=== PATIENT | female | born 1965 | race Caucasian/White ===

== ENCOUNTER → 2019-04-21 10:00 | Outpatient (CLI) | payer MEDICARE, MEDICAID, SELFPAY ==
--- NOTE | 2019-04-21 10:08 | US_ITS ---
US Arterial Lower Ext Rest History: Claudication, current smoker ORDERING PHYSICIAN: Vita Hoffman MD PATIENT AGE: 54 years TECHNIQUE: Segmental pressures obtained of both right and left leg. These are compared to brachial blood pressure to yield index at each level sampled including summary JORDON. The data sheets from the procedure are available in PACS FINDINGS Rest study only performed today No prior studies available for comparison. Blood pressures reported are in millimeters mercury. RIGHT LEG JORDON = 1.0. RIGHT LEG TBI=1.1 Brachial BP: 117 Thigh BP: 126 Calf BP: 121 Ankle PT: 128 Ankle DP : 107 Digit =138 LEFT LEG JORDON = 1.0 LEFT LEG TBI= 0.9 Brachial BPD: 124 Thigh BP: 130 Calf BP: 121 Ankle PT:127 Ankle DP: 120 Digit = 106 Pulses and waveforms: Normal IMPRESSION: The ABIs as reported above are within normal limits. Waveforms and pulses are also unremarkable.
== END ==
PROVIDERS: PCP Family Medicine; Visit Provider Family Medicine
DX: I73.9 Peripheral vascular disease, unspecified (principal)
CPT/HCPCS: 93923

== ENCOUNTER → 2019-04-29 13:04 | Outpatient (POV) | payer MEDICARE, MEDICAID, SELFPAY | PROVIDERS: Visit Provider Dermatology | DX: Z00.00 Encounter for general adult medical examination without abnormal findings (principal) ==

== ENCOUNTER → 2019-04-30 13:15 | Outpatient (POV) | payer MEDICARE, MEDICAID, SELFPAY | DX: Z00.00 Encounter for general adult medical examination without abnormal findings (principal) ==

== ENCOUNTER → 2019-05-16 12:00 | Outpatient (CLI) | payer MEDICARE, MEDICAID, SELFPAY ==
--- NOTE | 2019-05-16 12:02 | NM_ITS ---
APPROVED REPORT Exam: Nuclear Stress Test Indication: CAD, SOA, H/X NC, OBESITY, HTN, D.M., TOB USE, C.P., FATIQUE Patient Location: Outpatient Stress Tech: Lisset Velazco [place] Tech:Юлия Celis, ARRT RT (R)(N)(M) Ht: 4 ft 11 in Wt: 161 lbs BSA: 1.68 m2 HR: 91 bpm BP: 92/62 mmHg BMI: 32.5 History: CAD, SOA, H/X NC, OBESITY, HTN, D.M., TOB USE, C.P., FATIQUE Procedure: Patient received a 0.4 mg of intravenous Lexiscan, resting heart rate 91 bpm, resting blood pressure 92/62 mmHg, with Lexiscan maximum heart rate achived was 117 bpm which is Less than 85 % of the maximum predicted heart rate and blood pressure was 113/66 mmHg. Electrocardiogram Resting electrocardiogram showed sinus rhythm, with Lexiscan there is less than 1.[address] segment depression noted from the baseline EKG. The EKG portion of the Lexiscan Myoview is nondiagnostic. Cardiac Stress and Resting SPECT Images: Cardiac Stress and Resting SPECT images were obtained using technetium 99m Myoview 31.4 mCi stress and 9.89 mCi at rest. Gated SPECT with analysis of segmental wall motion and calculation of the ejection fraction also done. Cardiac stress and resting SPECT images show decreased tracer activity in the anterior wall with normal contractility and the gated SPECT is likely secondary to soft tissue attenuation, no reversible ischemia seen. Computer derived ejection fraction is over 65% with no regional wall motion abnormality, right ventricle is normal size and contractility. Conclusion: 1. The EKG portion of the Lexiscan Myoview is nondiagnostic. 2. No scintigraphic evidence of reversible ischemia, mild increases in activity in the anterior wall is likely secondary to soft tissue attenuation. Computer derived ejection fraction is over 65% with no regional wall motion abnormality, right ventricle is normal size and contractility. 3. Likely normal Lexiscan Myoview study. Electronically signed by : Aneudy Perez, 05/19/2019 19:33:03
--- NOTE | 2019-05-16 12:14 | CA_ITS ---
APPROVED REPORT EXAM: Comprehensive 2D, Doppler, and color-flow Echocardiogram Senior Software Quality Engineer: Renée Vazquez RDCS Ht: 4 ft 11 in Wt: 162lbs BSA: 1.69 BP: 150/82 mmHg Indications: Shortness of Breath, Diabetes, CAD, Hyperlipidemia, Hypertension/HDD 2D Dimensions LVOT 1.60 cm (M/F) 1.5-2.5 M-Mode Dimensions RVDd 3.50 cm (0.9-2.6) LA Diam 3.30 cm (1.9-4.0) LVDd 5.30 cm (3.5-5.7) Ao Diam 2.90 cm (2.0-3.7) LVDs 3.30 cm (3.5-5.7) AV Cusp 2.00 cm (1.5-2.6) IVSd 0.90 cm (0.6-1.1) PWd 0.90 cm (0.6-1.1) EF (Teich) 67.30% FS 37.70% EDV (Teich) 135.00 mL ESV (Teich) 44.10 mL LV Diastology E/A Ratio 0.8 MED E' 5.65 (< 7 cm/sec) E'/MED E' Ratio 11.40 (>14) LAT E' 7.80 (<10 cm/sec) E/LAT E' Ratio 8.20 (>14) Aortic Valve LVOT Max 142.00 (70-110 cm/s) LVOT VTI 27.90 cm AoV Peak Reji. 150.00 (50-130 cm/s) AO Peak GR. 9.00 mmHg AO Mean GR. 5.00 (<5 mmHg) AO VTI 30.00 (18-25 cm) LIZA (VTI) 1.87 (2.5-4.5 cm2) Mitral Valve MV E Max Reji. 64.20 (40-130 cm/s) MV A Velocity 76.50 (40-130 cm/s) E/A Ratio 0.80 Tricuspid Valve TR P. Velocity 322.00 cm/s RAP Estimate 10.00 mmHg RVSP 51.00 mmHg Left Ventricle Left atrium is mildly enlarged, left ventricle is normal size, mild concentric left ventricular hypertrophy, visually estimated ejection fraction 50%, with moderate apical wall hypokinesis. Grade 1 diastolic dysfunction seen without tissue Doppler evidence of raise left atrial pressure. Right Ventricle Right atrium and right ventricle moderately enlarged with normal contractility. Aortic Valve Aortic valve is thickened and calcified, there is no aortic stenosis aortic insufficiency. Mitral Valve Mitral valve has mitral valve calcification, there is no mitral stenosis. There is mild mitral regurgitation. Tricuspid Valve Tricuspid valve is grossly normal, there is mild tricuspid regurgitation. Tricuspid regurgitation jet velocity is inadequate for cannulation of the right ventricular systolic pressure. Pulmonic Valve Pulmonic valve is poorly visualized. Great Vessels Aortic root is normal size. Pericardium No significant pericardial effusion noted. Conclusion 1. Biatrial enlargement, normal left ventricular size, mild concentric left ventricular hypertrophy, visually estimated ejection fraction 55% with no regional wall motion abnormality. Grade 1 diastolic dysfunction seen without tissue Doppler evidence of raise left atrial pressure. 2. Moderately enlarged right ventricle with normal contractility. 3. Mild mitral and tricuspid regurgitation 4. No significant pericardial effusion noted. Electronically signed by : Aneudy Perez, 05/16/2019 16:41:00
== END ==
PROVIDERS: PCP Family Medicine; Visit Provider Internal Medicine Cardiovascular Disease
DX: I11.9 Hypertensive heart disease without heart failure (principal); I25.10 Atherosclerotic heart disease of native coronary artery without angina pectoris; R06.02 Shortness of breath; R07.9 Chest pain, unspecified; Z95.5 Presence of coronary angioplasty implant and graft; G47.33 Obstructive sleep apnea (adult) (pediatric); R40.0 Somnolence
CPT/HCPCS: 78452; 93306; A9502; G0399

== ENCOUNTER → 2019-05-19 12:49 | Outpatient (CLI) | payer MEDICARE, SELFPAY ==
--- NOTE | 2019-05-19 | CA_ITS ---
APPROVED REPORT Exam: Pharmacologic Technologist: Lisset Velazco Ht: 4 ft 11 in Wt: 161 lbs BSA: 1.68 m2 HR: 91 bpm BP: 92/62 mmHg Indications: Stress Only Medical History Medications: Aspirin,,,,, Losartan,,,,, Pantoprazole,,,,, Atorvastatin,,,,, Lyrica,,,,, Carvedilol,,,,, INSULIN,,,,, BRILINTA,,,,, Novalog,,,,, Imdur,,,,, CetIRIZINE,,,,, Budesonide,,,,, Stress Test Details Test: LEXISCAN HR Resting HR: 93 bpm Max Heart Rate (APMHR): 165 bpm Max HR Achieved: 127 bpm Target HR (85% APMHR): 140 bpm % of APMHR: 76 Recovery HR: 107 bpm BP Resting BP: 92/62 mmHg Max BP: 113/66 mmHg Recovery BP: 112.0/57.0 mmHg ECG Clinical Exercise duration: 04:00 min Highest Stage Achieved: Stress ECG Conclusion LEXISCAN PORTION COMPLETED. COMPLAINED OF NAUSEA AND SHORTNESS OF BREATH DURING PEAK INFUSION SYMPTOMS: NO CHEST PAIN. POSITIVE SHORTNESS OF BREATH, NAUSEA, AT PEAK INFUSION. RESOLVED IN RECOVERY. ARRHYTHMIAS/ECTOPY: OCCASIONAL PVC ST-T CHANGES: LESS THAN 1mm ST DEPRESSION CONCLUSION: IMAGES TO FOLLOW Test Summary REST . . . . . . . Sitting REST 03:51 . . 93 . 92/ 62 . . Stage 1 01:00 . . 117 . . . . Stage 2 01:00 . . 121 . . . . Stage 3 01:00 . . 116 . 106/ 67 . . Stage 4 01:00 . . 115 . 113/ 66 . Stop exercise at 04:00 RECOVERY 01:00 . . 110 . . . . RECOVERY 02:00 . . 109 . 95/ 53 . . RECOVERY 03:00 . . 106 . 98/ 59 . . RECOVERY 04:00 . . 104 . 98/ 59 . . RECOVERY 04:24 . . 108 . 112/ 57 . . Electronically signed by : Aneudy Perez, 05/19/2019 19:33:35
== END ==
PROVIDERS: PCP Family Medicine; Visit Provider Internal Medicine Cardiovascular Disease
DX: R06.02 Shortness of breath (principal); I25.10 Atherosclerotic heart disease of native coronary artery without angina pectoris; I11.9 Hypertensive heart disease without heart failure; Z95.5 Presence of coronary angioplasty implant and graft
CPT/HCPCS: 93017; J2785

== ENCOUNTER → 2019-07-15 14:06 | Outpatient (CLI) | payer MEDICARE, SELFPAY ==
--- NOTE | 2019-07-15 14:14 | MR_ITS ---
PROCEDURE: MR HEAD/BRAIN WO CON CLINICAL INDICATION: LT LEG WEAKNESS, DIZZINESS Left leg weakness and dizziness with headache and blurred vision COMPARISON: CT HEAD/BRAIN WO CON from 06/25/2019 TECHNIQUE: Routine multiplanar multi echo sequences are performed without gadolinium enhancement. FINDINGS: No midline shift, mass effect, intracranial hemorrhage, or hydrocephalus is evident. The cerebellopontine angles, cerebellum, midbrain, and brainstem have an unremarkable appearance. No evidence of acute infarction. There are a few periventricular and subcortical T2 white matter hyperintensities. These do not demonstrate restricted diffusion. The pituitary, optic chiasm, corpus callosum, and craniocervical junction have an unremarkable appearance. No mastoid effusion or sinus air-fluid level is evident. IMPRESSION: 1. No acute intracranial findings. 2. Nonspecific scattered periventricular and subcortical T2 white matter hyperintensities. Ischemic gliotic change from microvascular disease or migraine headache is a consideration. Demyelinating process is felt to be less likely based on imaging characteristics but not totally excluded. Dictated by: Ward Le MD 07/18/2019 07:14 Electronically signed by Ward Le MD in [place] 07/18/2019 07:14
--- NOTE | 2019-07-15 14:54 | US_ITS ---
PROCEDURE: US THYROID CLINICAL INDICATION: THYROID NODULE The COMPARISON: CT CERVICAL SPINE WO CON from 06/25/2019 CT ANGIO CHEST from 06/25/2019 MR HEAD/BRAIN WO CON from 07/15/2019 FINDINGS: Right lobe: A 4.8 x 1.5 x 2 cm the the. There is a spongiform 12 x 10 mm nodule in the upper pole, partially cystic 5 mm nodule in the midpole. Both of these are low suspicion for malignancy. In the lower pole there is a 10 x 10 mm solid-appearing nodule which is well-circumscribed slightly hypoechoic. Spongiform nodules present in the lower pole at 10 mm. Left lobe: 4.2 x 1.3 x 1.6 cm with a mixed cystic and solid nodule at 1.5 x 1.3 cm in the lower pole. This nodule somewhat irregular but is wider than tall with some macrocalcifications. T rads 4, this is moderately suspicious. FNA with ultrasound guidance suggested Isthmus: Unremarkable Additional findings: IMPRESSION: T rads 4 nodule lower pole on the left moderately suspicious consider FNA with ultrasound guidance. Other bilateral thyroid nodules for which six-month follow-up is suggested. Dictated by: Ward Le MD 07/15/2019 16:32 Electronically signed by Ward Le MD in [facility] 07/15/2019 16:32
== END ==
LOC: RAD 14:07
PROVIDERS: Visit Provider Family Medicine
DX: R29.898 Other symptoms and signs involving the musculoskeletal system (principal); E04.1 Nontoxic single thyroid nodule; R42 Dizziness and giddiness; R53.1 Weakness; Z79.01 Long term (current) use of anticoagulants; W19.XXXD Unspecified fall, subsequent encounter
CPT/HCPCS: 70551; 76536

== ENCOUNTER 2019-09-05 03:11 | Emergency (ER) | payer MEDICARE, SELFPAY ==
--- NOTE | 2019-09-05 | ECG_ITS ---
APPROVED REPORT Exam: Resting ECG HR:95 bpm ECG Measurements Heart Rate 95 AXES FL 118 P QRSd 86 QRS 13 QT 374 T 59 QTc 469 <Conclusion> Normal sinus rhythm Poor R Wave Progression Abnormal ECG Electronically signed by : Kurt Baird, 09/05/2019 08:52:26
[2019-09-05 03:13] VITALS: BP 107/66; PULSE 97; RESP 18; TEMP 36.5; O2SAT 92; BMI 33.3
[2019-09-05 03:38] LABS: Basophils # 0.1 K/mm3 (0-0.2); Basophils % 0.7 % (0.1-2.0); Eosinophils # 0.3 K/mm3 (0.0-0.4); Eosinophils % 3.9 % (0.1-12.0); Hematocrit 36.3 % (37.0-47.0); Hemoglobin 11.6 g/dL (12.2-16.2); Lymphocytes # 3.6 K/mm3 (0.7-4.5); Lymphocytes % 41.1 % (10-50); Mean Corpuscular Hemoglobin 28.9 pg (27.0-31.2); Mean Corpuscular Volume 90.4 fl (81-99); Mean Platelet Volume 7.6 fl (7.4-10.4); Monocytes # 0.5 K/mm3 (0.1-1.0); Monocytes % 5.8 % (1.7-9.3); Neutrophils # 4.2 K/mm3 (1.8-7.8); Neutrophils % 48.5 % (37.0-80.0); Platelet Count 404 K/mm3 (142-424); Red Blood Count 4.02 M/mm3 (4.20-5.40); Red Cell Distribution Width 14.6 % (11.5-17.5); White Blood Count 8.7 K/mm3 (4.8-10.8)
[2019-09-05 03:46] LABS: Alanine Aminotransferase 11 U/L (12-78); Albumin/Globulin Ratio 0.5 (1.1-1.8); Alkaline Phosphatase 89 U/L (46-116); Aspartate Amino Transferase 7 U/L (15-37); Bilirubin,Total 0.2 mg/dL (0.2-1.0); Blood Urea Nitrogen 10 mg/dL (7-18); C-Reactive Protein 0.3 mg/dL (0.0-0.9); Calcium 7.7 mg/dL (8.5-10.1); Carbon Dioxide 31 mmol/L (21.0-32.0); Chloride 104 mmol/L (98-107); Creatinine Clearance Estimated 112 mL/min (50-200); Creatinine,Serum 0.67 mg/dL (0.55-1.02); Estimated Glomerular Filt Rate 91 ml/min (>60); GFR (African American) 111 ML/MIN (>60); Globulin 3.7 gm/dl (1.3-3.2); Glucose 126 mg/dL (74-106); Sodium 143 mmol/L (136-145); Total Protein,Serum 5.7 gm/dL (6.4-8.2)
--- NOTE | 2019-09-05 03:53 | HMH.EDGENADL ---
ED Disposition Clinical Impression: Obesity (BMI 30.0-34.9), Smoker Pulmonary emboli Qualifiers: Pulmonary embolism type: unspecified Chronicity: acute Acute cor pulmonale presence: without acute cor pulmonale Qualified Code(s): I26.99 - Other pulmonary embolism without acute cor pulmonale DVT (deep venous thrombosis) Qualifiers: DVT location: lower extremity Affected thrombotic vein of extremity: femoral Chronicity: acute Laterality: right Qualified Code(s): I82.411 - Acute embolism and thrombosis of right femoral vein Disposition: Home, Self-Care Condition on Discharge: Fair Instructions: DI for Chronic Pain -- Adult, DI for Pulmonary Embolism Additional Instructions: will call in xarelto 15 mg bid x 3 weeks then 20 mg x 6 months Referrals: Provider,Referral, [Primary Care Provider] - - Critical Care Critical Care Time: No Attestation: On 09/05/19, the high probability of a clinically significant, sudden or life threatening deterioration of the following system(s) required my full and direct attention, intervention and personal management. The time I documented below is in addition to time spent performing reported procedures but includes the following listed in this critical care notation. Medical Decision Making - Medical Records Medical records reviewed: Yes: I reviewed the patient's medical records. - Ty Inquiry Pt receiving controlled substance: No Vital Signs: 09/05/19 03:13 09/05/19 04:11 09/05/19 05:00 Temperature 97.7 F 97.9 F Temperature Source Oral Rectal Pulse Rate [Right] 97 H 94 H Respiratory Rate 18 18 Blood Pressure [Right Arm] 107/66 L 112/68 Blood Pressure Mean [Right Arm] 79 82 Blood Pressure Source [Right Arm] Automatic Cuff Automatic Cuff Blood Pressure Position [Right Arm] Sitting Sitting 02 Sat by Pulse Oximetry 92 L 92 L Oxygen Delivery Method Room Air Room Air - Lab Data Lab results reviewed: Yes: I reviewed the patient's lab results. Lab Results 09/05/19 03:15: WBC 8.7, RBC 4.02 L, Hgb 11.6 L, Hct 36.3 L, MCV 90.4, MCH 28.9, MCHC 32.0, RDW 14.6, Plt Count 404, MPV 7.6, Neut % (Auto) 48.5, Lymph % (Auto) 41.1, Mcleod % (Auto) 5.8, Eos % (Auto) 3.9, Baso % (Auto) 0.7, Neut # (Auto) 4.2, Lymph # (Auto) 3.6, Mcleod # (Auto) 0.5, Eos # (Auto) 0.3, Baso # (Auto) 0.1 09/05/19 03:15: Sodium 143, Potassium 3.0 L, Chloride 104, Carbon Dioxide 31, Anion Gap 11.0, BUN 10, Creatinine 0.67, Estimated Creat Clear 112, Estimated GFR 91, Est GFR ( Amer) 111, Glucose 126 H, Calcium 7.7 L, Total Bilirubin 0.2, AST 7 L, ALT 11 L, Alkaline Phosphatase 89, C-Reactive Protein 0.3, Total Protein 5.7 L, Albumin 2.0 L, Globulin 3.7 H, Albumin/Globulin Ratio 0.5 L 09/05/19 03:15: ESR 60 H 09/05/19 03:15: Total Bilirubin 0.1 L, Direct Bilirubin 0.1, Indirect Bilirubin 0.0, AST 10 L D, ALT 12, Alkaline Phosphatase 89, Troponin I < 0.02, Total Protein 5.6 L, Albumin 2.0 L, Lipase 121 09/05/19 03:15: B-Natriuretic Peptide 19 09/05/19 04:17: Urine Color Yellow, Urine Appearance Clear, Urine pH 5.5, Ur Specific [place] 1.015, Urine Protein Negative, Urine Glucose (UA) Negative, Urine Ketones Negative, Urine Blood Trace-i, Urine Nitrate Negative, Urine Bilirubin Negative, Urine Urobilinogen 0.2, Ur Leukocyte Esterase Negative, Urine RBC 3-5, Amorphous Sediment Trace 09/05/19 07:39: Troponin I 0.02 Result diagrams: 09/05/19 03:15 09/05/19 03:15 Orders (Tests/Meds): ED MEDICATIONS Generic Name Dose Route Start Last Admin Trade Name Freq PRN Reason Stop Dose Admin Rivaroxaban 15 mg 09/05/19 08:15 09/05/19 08:50 Xarelto 15mg Tablet PO 10/05/19 08:14 15 mg BIDWM DELORES Administration Discontinued Medications Generic Name Dose Route Start Last Admin Trade Name Freq PRN Reason Stop Dose Admin Enoxaparin Sodium 75 mg 09/05/19 05:29 09/05/19 05:30 Lovenox 80mg/0.8ml Syringe SQ 09/05/19 05:30 75 mg ONCE ONE Administration Sodium Chloride 1,000 mls @ 999 mls/hr
--- NOTE | 2019-09-05 03:57 | CT_ITS ---
PROCEDURE: CT HEAD/BRAIN WO CON CLINICAL INDICATION: weakness/ loss of mobility COMPARISON: CT HEAD/BRAIN WO CON from 06/25/2019 TECHNIQUE: Axial images obtained. All CT scans at the facility use one or more dose reduction, viz: automated exposure control, ma/kV adjustment per patient size (including targeted exams where dose is matched to indication, i.e. head), or iterative reconstruction technique. FINDINGS: No midline shift, mass effect, intracranial hemorrhage, hydrocephalus, or extra-axial fluid collection is evident. There are no new areas of abnormal attenuation. There is mild motion artifact. Ventricles, sulci and cortical areas are normal. The calvarium has an unremarkable appearance. Image number 36 from series number 3, bone window images shows a 15 millimeter round lucency related to the superior posterior right frontal calvarium. This appears stable since 06/25/2019. No sinus air-fluid level. IMPRESSION: No acute intracranial process or significant change. Superior posterior right frontal calvarium lucency appears unchanged although still nonspecific. This could be a cavernous hemangioma. Suggest follow-up CT of the head with bone window images to evaluate this area in 6 months. Dictated by: Tyrell Perez 09/05/2019 16:27 Electronically signed by Tyrell Perez in [place] 09/05/2019 16:27
[2019-09-05 04:01] LABS: Erythrocyte Sedimentation Rate 60 mm/hr (0-30)
--- NOTE | 2019-09-05 04:03 | XR_ITS ---
PROCEDURE: XR CHEST PORTABLE CLINICAL HISTORY: chest pain COMPARISON: XR CHEST 2V from 06/06/2019 XR CHEST AP from 06/25/2019 CT ANGIO CHEST from 09/05/2019 FINDINGS: The cardiomediastinal silhouette and pulmonary vascularity are within normal limits. There is a stable medial right lower lobe calcified nodule. Lung geiger are otherwise clear. No acute bony abnormalities. IMPRESSION: No acute findings. Dictated by: Tyrell Perez 09/05/2019 17:27 Electronically signed by Tyrell Perez in [place] 09/05/2019 17:27
--- NOTE | 2019-09-05 04:03 | CT_ITS ---
PROCEDURE: CT LUMBAR SPINE WO CON CLINICAL HISTORY: loss of mobility COMPARISON: CT LUMBAR SPINE WO CON from 06/25/2019 TECHNIQUE: Axial images obtained with sagittal and coronal reformats. All CT scans at the facility use one or more dose reduction, viz: automated exposure control, ma/kV adjustment per patient size (including targeted exams where dose is matched to indication, i.e. head), or iterative reconstruction technique. FINDINGS: Alignment is normal. There is stable moderate osteopenia. There is stable superior endplate compression deformity at L1 level with stable very mild retropulsion of the posterior superior corner of the L1 vertebral body towards the vertebral canal. This is very mild without stenosis. There is stable degenerative disc disease at L3-4, L5-S1 and L1-2. There is a diffuse disc bulge with moderate thecal sac attenuation and moderate bilateral foraminal stenosis greater on the right which may be more severe. L4-5 shows disc bulge greater towards the left side with moderate foraminal stenosis without definite impingement of the exiting nerve root. The remainder of the disc levels do not show a bulge or herniation. The remainder of the foraminal areas are unremarkable. There are areas of facet hypertrophy which is moderate bilaterally at L5-S1. There is partially visualized catheter in the pelvis which could be partial volume averaging with a Russell catheter. Paraspinal areas are otherwise unremarkable. IMPRESSION: No significant change or acute process. L3-4 moderate acquired central canal stenosis and bilateral foraminal stenosis more severe on the right. L4-5 disc bulge with mild bilateral moderate foraminal stenosis greater on the left. Dictated by: Tyrell Perez 09/05/2019 15:56 Electronically signed by Tyrell Perez in [place] 09/05/2019 15:56
--- NOTE | 2019-09-05 04:03 | CT_ITS ---
PROCEDURE: CT ANGIO CHEST CLINCIAL INDICATION: loss of mobility COMPARISON: CT ANGIO CHEST from 06/25/2019 CT ABDOMEN PELVIS W CON from 06/25/2019 TECHNIQUE: IV Contrast: 70ML OPTIRAY 350 Axial images obtained with sagittal and coronal reformats. All CT scans at the facility use one or more dose reduction, viz: automated exposure control, ma/kV adjustment per patient size (including targeted exams where dose is matched to indication, i.e. head), or iterative reconstruction technique. FINDINGS: PULMONARY ARTERIES: There is a moderate degree of intraluminal filling defects involving the right pulmonary arteries beginning at the distal right main pulmonary artery and extending into the posterior branch of the right lower lobe pulmonary artery. Also noted is a small filling defect in 1 of the left lower lobe segmental pulmonary artery branches. AORTA: No acute finding. No thoracic aortic aneurysm or dissection evident LUNGS: There are some hazy confluent densities in both lower lobes greater in the left lower lobe and thin strands of increased density in the lingula. PLEURAL SPACES: No significant effusion. No evidence of pneumothorax. HEART: Heart size is normal without pericardial effusion. There are coronary artery calcifications. MEDIASTINAL AND HILAR STRUCTURES: No mediastinal or hilar mass evident. No dominant adenopathy BONY STRUCTURES: No acute bony abnormalities apparent. LYMPH NODES: No enlarged lymph nodes evident. UPPER ABDOMEN: Again seen are numerous hypodense splenic lesions the larger in the upper pole is 1.4 centimeters. IMPRESSION: Bilateral pulmonary emboli which is somewhat more extensive on the right side as discussed above. Multifocal lung densities greater on the left likely confluent atelectasis. Stable nonspecific splenic lesions. Suggest continued follow-up and correlate with history. Dictated by: Tyrell Perez 09/05/2019 12:51 Electronically signed by Tyrell Perez in [place] 09/05/2019 12:51
[2019-09-05 04:11] VITALS: TEMP 36.6
[2019-09-05 04:19] LABS: Alanine Aminotransferase 12 U/L (12-78); Alkaline Phosphatase 89 U/L (46-116); Aspartate Amino Transferase 10 U/L (15-37); Bilirubin,Direct 0.1 mg/dL (0.0-0.2); Bilirubin,Total 0.1 mg/dL (0.2-1.0); Lipase 121 u/L (73-393); Total Protein,Serum 5.6 gm/dL (6.4-8.2); Troponin I < 0.02 ng/ml (0.00-0.06)
[2019-09-05 04:31] LABS: Microscopic, Urine URINE MICROSCOPIC (MICROSCOPIC)
[2019-09-05 04:38] LABS: Appearance,Urine CLEAR (Clear); Bilirubin,Urine Negative (Negative); Blood, Urine TRACE-I (Negative); Color,Urine YELLOW (Yellow); Glucose,Urine (UA) Negative (Negative); Ketones,Urine Negative (Negative); Leukocyte Esterase,Urine Negative (Negative); Nitrate,Urine Negative (Negative); PH,Urine 5.5 (5.0-8.5); Protein,Urine Negative (Negative); Specific Gravity, Urine 1.015 (1.005-1.030); Urobilinogen,Urine 0.2 EU/dl (0.2)
[2019-09-05 04:41] LABS: Amorphous Sediment,Urine Trace /lpf
[2019-09-05 05:00] VITALS: BP 112/68; PULSE 94; RESP 18; O2SAT 92
--- NOTE | 2019-09-05 06:57 | CA_ITS ---
APPROVED REPORT Bilateral Lower Extremity Venous Study for DVT. Chief Technical Officer: CHERISE CrouchT Indications Lower Extremity Pain: Bilateral Pulmonary Embolism bilat. edema Vein Imaging CFV (R): compressive, spontaneous, phasic, augmentation FEM (R): Partially Compressible, Thrombus POP (R): compressive, spontaneous, phasic, augmentation PTV (R): Compressible GSV (R): Compressible Peroneals (R):Compressible GAS (R): Compressible CFV (L): compressive, spontaneous, phasic, augmentation FEM (L): compressive, spontaneous, phasic, augmentation POP (L): compressive, spontaneous, phasic, augmentation PTV (L): Compressible GSV (L): Compressible Peroneals (L):Compressible GAS (L): Compressible Findings Study suggests a paritally compressible area in the mid right femoral jackelin, probable thrombus. Other veins in bilateral lower extremities are negative. Study suggests no evidence of SVT in the bilateral lower extremities. 3.8 cm cytic lesion left popliteal fossa, probable Song's cyst. Conclusion Study suggests a paritally compressible area in the mid right femoral jackelin, probable thrombus. Other veins in bilateral lower extremities are negative. Study suggests no evidence of SVT in the bilateral lower extremities. 3.8 cm cytic lesion left popliteal fossa, probable Song's cyst. Critical Notification Physician Notified Date: 09/05/2019 Time: 07:40 am Physician Name: Dr Judge Electronically signed by : Tyrell Perez, 09/05/2019 09:19:19
--- NOTE | 2019-09-05 07:42 | PC.NURSE ---
Case Management at bedside
--- NOTE | 2019-09-05 08:02 | PC.NURSE ---
Verified with Fabio from pharmacy for dosing of xerelto
[2019-09-05 08:04] LABS: Troponin I 0.02 ng/ml (0.00-0.06)
[2019-09-05 11:16] LABS: Troponin I 0.02 ng/ml (0.00-0.06)
--- NOTE | 2019-09-05 11:20 | PC.NURSE ---
FREDDIE WAS CALLED INTO [facility] PER DR NGUYEN'S VERBAL ORDER. DOSAGE IS FOLLOWS... 15MG PO BID X3 WEEKS THEN INCREASE TO 20MG PO DAILY X6 MONTHS. DR NGUYEN ADVISES THIS SHOULD GIVE THE PT TIME TO GET ESTABLISHED WITH A PCP AND HAVE MEDS MONITORED
[2019-09-05 11:54] VITALS: BP 111/69; PULSE 98; RESP 16; TEMP 37.1; O2SAT 94
== END 2019-09-05 11:57 | disposition home or self-care (01) ==
PROVIDERS: Emergency Provider Emergency Medicine
DX: I26.99 Other pulmonary embolism without acute cor pulmonale (principal); I82.411 Acute embolism and thrombosis of right femoral vein; E66.9 Obesity, unspecified; Z68.33 Body mass index [BMI] 33.0-33.9, adult; F17.210 Nicotine dependence, cigarettes, uncomplicated; I25.10 Atherosclerotic heart disease of native coronary artery without angina pectoris; R06.02 Shortness of breath; K21.9 Gastro-esophageal reflux disease without esophagitis; E11.9 Type 2 diabetes mellitus without complications; Z79.4 Long term (current) use of insulin; Z79.84 Long term (current) use of oral hypoglycemic drugs; E78.5 Hyperlipidemia, unspecified; I10 Essential (primary) hypertension; I25.2 Old myocardial infarction; Z88.0 Allergy status to penicillin; Z88.2 Allergy status to sulfonamides; Z79.899 Other long term (current) drug therapy; Z95.5 Presence of coronary angioplasty implant and graft; F33.1 Major depressive disorder, recurrent, moderate
CPT/HCPCS: 36415; 70450; 71045; 71275; 72131; 80053; 80076; 81001; 83690; 83880; 84484; 85025; 85651; 86140; 93005; 93970; 96365; 96372; 96374; 96375; 99284; Q9967

== ENCOUNTER → 2019-10-13 14:06 | Outpatient (CLI) | payer MEDICARE, SELFPAY ==
--- NOTE | 2019-10-13 14:08 | MR_ITS ---
PROCEDURE: MR CERVICAL SPINE WO CON CLINICAL INDICATION: LUMBAR DDD, SPINAL STENOSIS OF LUMBAR REGION Neck pain, bilateral arm pain numbness and tingling COMPARISON: CT CERVICAL SPINE WO CON from 06/25/2019 TECHNIQUE: Standard multiplanar multiecho sequences are performed without contrast. 3-D MIP and myelographic images are also rendered and reviewed FINDINGS: There is normal alignment. Craniocervical junction has an unremarkable appearance. C2-C3: Unremarkable. C3-C4: Bulging disc versus hypertrophy the posterior longitudinal ligament with narrowing of the canal at 9 mm.. C4-C5: Small central disc protrusion. This is causing some mild flattening upon the anterior central aspect of the cord with narrowing of the canal at 7 mm. C5-C6: Degenerative disc disease. There is a small broad-based bulging disc with focal small central disc protrusion which is causing severe canal stenosis. There is increased T2 signal within the cord at this region suggesting some underlying gliotic change. The canal at this area is extremely narrowed measuring approximately 3-4 mm. C6-C7: Bulging disc eccentric to the left with narrowing of the canal at 9 mm. C7-T1: Unremarkable. IMPRESSION: 1. C4-C5: Small central disc protrusion. This is causing some mild flattening upon the anterior central aspect of the cord with narrowing of the canal at 7 mm. 2. C5-C6: Degenerative disc disease. There is a small broad-based bulging disc with focal small central disc protrusion which is causing severe canal stenosis. There is severe compression upon the anterior and central aspect of the cord with underlying increased T2 signal of the cord at this area which may be due to gliotic change. . The canal at this area is extremely narrowed measuring approximately 3-4 mm. 3. Narrowing of the canal also noted at C3-C4 and C6-C7 Dictated by: Ward Le MD 10/15/2019 09:56 Electronically signed by Ward Le MD in [place] 10/15/2019 09:56
--- NOTE | 2019-10-13 14:09 | MR_ITS ---
PROCEDURE: MR LUMBAR SPINE WO/W CON CLINICAL INDICATION: LUMBAR DDD, SPINAL STENOSIS OF LUMBAR REGION Low back pain with bilateral hip and leg pain and numbness. Prior back surgery COMPARISON: MR HEAD/BRAIN WO CON from 07/15/2019 CT LUMBAR SPINE WO CON from 09/05/2019 TECHNIQUE: Standard multiplanar multiecho sequences are performed without contrast. 3-D MIP and myelographic images are also rendered and reviewed FINDINGS: Chronic wedge compression changes are present involving L1 with loss of height anteriorly of approximately 30 percent and minimal retropulsion of the posterior superior aspect of the L1 vertebral body by 3-4 mm. This is very slightly eccentric to the right. The spinal cord ends at the L1 level. L1-L2: Unremarkable. L2-L3: Unremarkable. L3-L4: There is degenerative disc disease with bulging disc with broad-based right paracentral foraminal and lateral disc protrusion along with severe facet and ligamentum hypertrophy with severe canal stenosis and severe bilateral lateral recess narrowing and severe right foraminal narrowing and moderate to severe left foraminal narrowing. L4-5: Degenerative disc disease with bulging disc and with a broad-based central, left paracentral, foraminal and lateral disc protrusion with resultant canal stenosis along with severe left lateral recess and foraminal narrowing and moderate to severe right lateral recess and foraminal narrowing. Laminotomy changes are present on the left at L4-5. No evidence epidural fibrosis. L5-S1: Bulging disc with facet ligamentum hypertrophy with bilateral lateral recess narrowing and mild right foraminal narrowing and moderate left foraminal narrowing. No acute fracture. No enhancing lesions. IMPRESSION: 1. Chronic wedge compression changes of L1 2. L3-L4: There is degenerative disc disease with bulging disc with broad-based right paracentral foraminal and lateral disc protrusion along with severe facet and ligamentum hypertrophy with severe canal stenosis and severe bilateral lateral recess narrowing and severe right foraminal narrowing and moderate to severe left foraminal narrowing. 3. L4-5: Degenerative disc disease with bulging disc and with a broad-based central, left paracentral, foraminal and lateral disc protrusion with resultant canal stenosis along with severe left lateral recess and foraminal narrowing and moderate to severe right lateral recess and foraminal narrowing. Laminotomy changes are present on the left at L4-5. No evidence epidural fibrosis. 4. L5-S1: Bulging disc with facet ligamentum hypertrophy with bilateral lateral recess narrowing and mild right foraminal narrowing and moderate left foraminal narrowing. The Dictated by: Ward Le MD 10/15/2019 10:23 Electronically signed by Ward Le MD in [place] 10/15/2019 10:23
== END ==
LOC: RAD 14:06
PROVIDERS: Visit Provider Neurological Surgery
DX: M51.36 Other intervertebral disc degeneration, lumbar region (principal); M48.061 Spinal stenosis, lumbar region without neurogenic claudication; R29.898 Other symptoms and signs involving the musculoskeletal system
CPT/HCPCS: 72141; 72158; 76376; A9576

== ENCOUNTER 2020-01-11 13:23 | Inpatient (IN) | payer MEDICARE, SELFPAY ==
[2020-01-11] VITALS (7 sets, daily range): BP systolic 96–151; BP diastolic 46–102; PULSE 67–97; RESP 16–20; TEMP 35.8–37.7; O2SAT 91–99; BMI 39.4; BMI 23.2
[2020-01-11 13:55] LABS: Chloride 89 mmol/L (98-107); Potassium 4.1 mmoL/L (3.5-5.1); Sodium 123 mmol/L (136-145)
[2020-01-11 13:57] LABS: Alanine Aminotransferase 15 U/L (12-78); Aspartate Amino Transferase 19 U/L (14-36); Blood Urea Nitrogen 28 mg/dl (7-17); Creatinine Clearance Estimated 62 mL/min (50-200); Estimated Glomerular Filt Rate 31 ml/min (>60); GFR (African American) 38 ML/MIN (>60)
[2020-01-11 13:58] LABS: Albumin Level 2.5 g/dl (3.5-5.0); Albumin/Globulin Ratio 0.9 (1.1-1.8); Alkaline Phosphatase 114 U/L (38-126); Anion Gap 14.1 mEq/L (5-15); Bilirubin,Total 0.3 mg/dl (0.2-1.3); Calcium 7.6 mg/dl (8.4-10.2); Carbon Dioxide 24 mmol/L (22.0-30.0); Globulin 2.9 g/dL (1.3-3.2); Total Protein,Serum 5.4 g/dl (6.3-8.2)
[2020-01-11 14:07] LABS: Basophils # 0.1 K/mm3 (0-0.2); Basophils % 0.8 % (0.1-2.0); Eosinophils # 0.1 K/mm3 (0.0-0.4); Eosinophils % 0.8 % (0.1-12.0); Lymphocytes # 2.2 K/mm3 (0.7-4.5); Lymphocytes % 17.5 % (10-50); Mean Corpuscular HGB Conc 30.3 g/dL (31.8-35.4); Mean Corpuscular Hemoglobin 24.5 pg (27.0-31.2); Mean Corpuscular Volume 80.9 fl (81-99); Mean Platelet Volume 8.2 fl (7.4-10.4); Monocytes # 0.6 K/mm3 (0.1-1.0); Monocytes % 4.4 % (1.7-9.3); Neutrophils # 9.5 K/mm3 (1.8-7.8); Neutrophils % 76.5 % (37.0-80.0); Platelet Count 291 K/mm3 (142-424); Red Blood Count 4.08 M/mm3 (4.20-5.40); Red Cell Distribution Width 17.7 % (11.5-17.5); White Blood Count 12.4 K/mm3 (4.8-10.8)
--- NOTE | 2020-01-11 14:08 | HMH.EDGENADL ---
ED Disposition Clinical Impression: Fatigue, Right middle lobe pneumonia, UTI (urinary tract infection), Hyperglycemia due to type 2 diabetes mellitus, SIRS (systemic inflammatory response syndrome) Disposition: Admitted as Observation Condition on Discharge: Good Instructions: DI for Hyperglycemia -- Adult Additional Instructions: Spoke to Dr. Gupta for admission for this patient Referrals: Provider,Referral, [Primary Care Provider] - - Critical Care Critical Care Time: No Attestation: On 01/11/20, the high probability of a clinically significant, sudden or life threatening deterioration of the following system(s) required my full and direct attention, intervention and personal management. The time I documented below is in addition to time spent performing reported procedures but includes the following listed in this critical care notation. Medical Decision Making - Medical Records Medical records reviewed: Yes: I reviewed the patient's medical records. - Ty Inquiry Pt receiving controlled substance: No Vital Signs: 01/11/20 13:07 01/11/20 15:07 01/11/20 16:20 Temperature 99.8 F H 96.4 F L Temperature Source Oral Rectal Pulse Rate [Right Radial] 88 67 Respiratory Rate 16 20 Blood Pressure [Right Arm] 96/56 L 151/102 H Blood Pressure Mean [Right Arm] 69 118 Blood Pressure Source [Right Arm] Automatic Cuff Blood Pressure Position [Right Arm] Sitting 02 Sat by Pulse Oximetry 99 96 Oxygen Delivery Method Room Air - Lab Data Lab results reviewed: Yes: I reviewed the patient's lab results. Lab Results 01/11/20 13:34: WBC 12.4 H, RBC 4.08 L, Hgb 10.0 L, Hct 33.0 L, MCV 80.9 L, MCH 24.5 L, MCHC 30.3 L, RDW 17.7 H, Plt Count 291, MPV 8.2, Neut % (Auto) 76.5, Lymph % (Auto) 17.5, H[place]oldt % (Auto) 4.4, Eos % (Auto) 0.8, Baso % (Auto) 0.8, Neut # (Auto) 9.5 H, Lymph # (Auto) 2.2, [place] # (Auto) 0.6, Eos # (Auto) 0.1, Baso # (Auto) 0.1 01/11/20 13:34: Sodium 123 L, Potassium 4.1, Chloride 89 L, Carbon Dioxide 24, Anion Gap 14.1, BUN 28 H, Creatinine 1.70 H, Estimated Creat Clear 62, Estimated GFR 31 L, Est GFR ( Amer) 38 L, Glucose 623 H*, Calcium 7.6 L, Total Bilirubin 0.3, AST 19, ALT 15, Alkaline Phosphatase 114, Total Protein 5.4 L, Albumin 2.5 L, Globulin 2.9, Albumin/Globulin Ratio 0.9 L 01/11/20 14:20: Urine Color Yellow, Urine Appearance Clear, Urine pH 6.0, Ur Specific Bynum 1.020, Urine Protein Negative, Urine Glucose (UA) 3+, Urine Ketones Negative, Urine Blood 2+, Urine Nitrate Positive, Urine Bilirubin Negative, Urine Urobilinogen 0.2, Ur Leukocyte Esterase 2+ A, Urine RBC 20-50, Urine WBC Tntc, Ur Squamous Epith Cells 5-10, Urine Bacteria 2+ 01/11/20 14:20: Urine Opiates Screen Positive H, Urine Methadone Screen Negative, Ur Barbituates Screen Negative, Ur Phencyclidine Scrn Negative, Ur Amphetamines Screen Negative, U Benzodiazepines Scrn Negative, Urine Cocaine Screen Negative, U Marijuana (THC) Screen Negative 01/11/20 14:30: Lactate 2.3 H 01/11/20 15:38: POC Glucose 576 H* Result diagrams: 01/11/20 13:34 01/11/20 13:34 Orders (Tests/Meds): ED MEDICATIONS Generic Name Dose Route Start Last Admin Trade Name Freq PRN Reason Stop Dose Admin Ceftriaxone Sodium 1 gm/ 50 mls @ 100 mls/hr 01/11/20 16:30 01/11/20 16:23 Sodium Chloride IV 01/25/20 16:29 100 mls/hr Q24H DELORES Administration Protocol Discontinued Medications Generic Name Dose Route Start Last Admin Trade Name Freq PRN Reason Stop Dose Admin Sodium Chloride 1,000 mls @ 999 mls/hr 01/11/20 14:30 01/11/20 14:20 Sod Chlor 0.9% 1000ml Bag IV 01/11/20 15:30 999 mls/hr .Q1H1M DELORES Administration Insulin Human Regular 20 unit 01/11/20 15:03 01/11/20 15:05 Humulin R Insulin 100 Units/Ml 10ml Vial IVP 01/11/20 15:04 20 unit ONCE ONE Administration Insulin Human Regular 20 unit 01/11/20 16:10 01/11/20 16:48 Humulin R Insulin 100 Units/Ml 10ml Vial IVP 01/11/20 16:11 20 un
[2020-01-11 14:10] LABS: Glucose 623 mg/dl (74-100)
[2020-01-11 14:24] LABS: Microscopic, Urine URINE MICROSCOPIC (MICROSCOPIC)
[2020-01-11 14:28] LABS: Appearance,Urine CLEAR (Clear); Bilirubin,Urine Negative (Negative); Blood, Urine 2+ (Negative); Color,Urine YELLOW (Yellow); Glucose,Urine (UA) 3+ (Negative); Ketones,Urine Negative (Negative); Leukocyte Esterase,Urine 2+ (Negative); Nitrate,Urine POSITIVE (Negative); Protein,Urine Negative (Negative); Urobilinogen,Urine 0.2 EU/dl (0.2)
[2020-01-11 14:39] LABS: Barbiturates Screen,Urine Negative ng/ml (<200)
[2020-01-11 14:40] LABS: Benzodiazepines Screen,Urine Negative ng/ml (<200)
[2020-01-11 14:41] LABS: Amphetamine/Metha Screen,Urine Negative ng/ml (<1000); Cannabinoid Screen,Urine Negative ng/ml (<50)
[2020-01-11 14:42] LABS: Cocaine Screen,Urine Negative ng/ml (<300)
[2020-01-11 14:43] LABS: Methadone Screen,Urine Negative ng/ml (<300); Opiate Screen,Urine Positive ng/ml (<300)
[2020-01-11 14:44] LABS: Phencyclidine Screen,Urine Negative ng/ml (<25)
[2020-01-11 14:57] LABS: WBC,Urine TNTC #/hpf (0-3)
[2020-01-11 14:58] LABS: Bacteria,Urine 2+ /lpf; RBC,Urine 20-50 #/hpf (0-3)
[2020-01-11 15:11] LABS: Lactic Acid 2.3 mmol/L (0.7-2.1)
[2020-01-11 15:45] LABS: POC Glucose,Bedside 576 (70-110)
--- NOTE | 2020-01-11 15:59 | PC.NURSE ---
Updated pt sister of BRANT
--- NOTE | 2020-01-11 16:04 | CT_ITS ---
PROCEDURE: CT HEAD/BRAIN WO CON CLINICAL INDICATION: LETHARGY Lethargy, altered level of consciousness, confusion, disorientation the COMPARISON: CT HEAD/BRAIN WO CON from 09/05/2019 TECHNIQUE: Axial images obtained. All CT scans at the facility use one or more dose reduction, viz: automated exposure control, ma/kV adjustment per patient size (including targeted exams where dose is matched to indication, i.e. head), or iterative reconstruction technique. FINDINGS: No midline shift, mass effect, intracranial hemorrhage, hydrocephalus, or extra-axial fluid collection is evident. The calvarium has an unremarkable appearance. No mastoid effusion. There is mild mucosal thickening of the maxillary sinuses IMPRESSION: No acute intracranial finding Dictated by: Ward Le MD 01/12/2020 06:46 Electronically signed by Ward Le MD in [facility] 01/12/2020 06:46
--- NOTE | 2020-01-11 16:04 | CT_ITS ---
PROCEDURE: CT CHEST WO CON CLINICAL INDICATION: LETHARGY COMPARISON: CT ANGIO CHEST from 09/05/2019 TECHNIQUE: Axial images obtained with sagittal and coronal reformats. All CT scans at the facility use one or more dose reduction, viz: automated exposure control, ma/kV adjustment per patient size (including targeted exams where dose is matched to indication, i.e. head), or iterative reconstruction technique. FINDINGS: HEART AND MEDIASTINAL STRUCTURES: Coronary artery calcifications and/or stents noted. Normal heart size. LUNGS AND PLEURAL SPACES: COPD changes. There are atelectatic changes in the right lower lobe with atelectatic or fibrotic changes in the left lower lobe. There are few scattered small areas of peripheral ground-glass opacity. Chronic volume loss is present in the right upper lobe medially. No effusions. BONY STRUCTURES: Degenerative changes thoracic spine. There are multiple old bilateral rib fractures. There is wedging of L1 with loss of height centrally of 50 percent which is increased compared to the previous exam. There is minimal retropulsion of the posterior superior aspect of the L1 vertebral body not significantly changed UPPER ABDOMEN: Unremarkable. ADDITIONAL FINDINGS: No other significant abnormalities. IMPRESSION: 1. COPD with bilateral atelectatic or fibrotic changes. 2. Scattered peripheral small ground-glass opacities nonspecific and could be seen with resolving edema or atypical or viral pneumonia. 3. Chronic wedge compression changes of L1 which have slightly increased compared to the previous exam Dictated by: Ward Le MD 01/12/2020 10:33 Electronically signed by Ward Le MD in [facility] 01/12/2020 10:33
--- NOTE | 2020-01-11 16:20 | PC.NURSE ---
notified that pt noew meets criteria for severe sepsis d/t temp dropping, verbal order for rocephin given
[2020-01-11 17:20] LABS: POC Glucose,Bedside 240 (70-110)
--- NOTE | 2020-01-11 17:53 | PC.NURSE ---
[facility] READ CHEST CT GROUND GLASS APPEARANCE. SPOKE WITH DR BATES AND THEY AGREED THAT PT WARRANTED COVID TESTING. SPOKE WITH COVID NURSE AND SHE ADVISED TO PERFORM IN-HOUSE TESTING, RATHER THAN SEND-OUT. LAB NOTIFIED AND ORDER PLACED. RESIDENT PLACED ON AIRBORNE AND DROPLET PRECAUTIONS AT THIS TIME.
--- NOTE | 2020-01-11 18:05 | PC.NURSE ---
LAB JUST LEFT BEDSIDE FROM PERFORMING COVID TEST
[2020-01-11 18:43] LABS: Reflex Lactic Add Lactic Reflex
[2020-01-11 18:45] LABS: Adenovirus,PCR Not Detected (NotDetected); Bordetella Pertussis Not Detected (NotDetected); Chlamydophila Pneumoniae, PCR Not Detected (NotDetected); Coronavirus 19, PCR Not Detected (NotDetected); Coronavirus 229E Not Detected (NotDetected); Coronavirus NL63 Not Detected (NotDetected); Coronavirus OC43 Not Detected (NotDetected); Coronovirus HKU1,PCR Not Detected (NotDetected); Human Metapneumovirus Not Detected (NotDetected); Influenza A, PCR Not Detected (NotDetected); Influenza AH1, 2009 Not Detected (NotDetected); Influenza AH1, PCR Not Detected (NotDetected); Influenza AH3,PCR Not Detected (NotDetected); Influenza B, PCR Not Detected (NotDetected); Mycoplasma Pneumoniae, PCR Not Detected (NotDected); Parainfluenza 1, PCR Not Detected (NotDetected); Parainfluenza 2, PCR Not Detected (NotDetected); Parainfluenza 3, PCR Not Detected (NotDetected); Parainfluenza 4, PCR Not Detected (NotDetected); Respiratory Syncytial Virus Not Detected (NotDetected); Rhinovirus/Enterovirus Not Detected (NotDetected)
[2020-01-11 19:12] LABS: Lactic Acid Follow Up (RFLX 1) 1.9 mmol/L (0.7-2.1)
[2020-01-11 19:15] LABS: POC Glucose,Bedside 77 (70-110)
--- NOTE | 2020-01-11 19:15 | PC.NURSE ---
Dr. Downey notified of covid test per Aliyah Dale RN
--- NOTE | 2020-01-11 19:22 | PC.NURSE ---
Notified 2nd floor of negative COVID swab. Paged Dr Gupta at this time to notify of neg results, awaiting a page back.
[2020-01-11 19:57] LABS: Chloride 99 mmol/L (98-107); Sodium 134 mmol/L (136-145)
[2020-01-11 20:00] LABS: Blood Urea Nitrogen 22 mg/dl (7-17); Creatinine Clearance Estimated 116 mL/min (50-200); Estimated Glomerular Filt Rate 65 ml/min (>60); GFR (African American) 79 ML/MIN (>60)
[2020-01-11 20:00] LABS: POC Glucose,Bedside 203 (70-110)
[2020-01-11 20:01] LABS: Calcium 7.5 mg/dl (8.4-10.2); Carbon Dioxide 26 mmol/L (22.0-30.0); Glucose 59 mg/dl (74-100)
--- NOTE | 2020-01-11 20:18 | PC.NURSE ---
pt arrived to floor via stretcher from ED with ERASTO Rogers
[2020-01-12] VITALS (12 sets, daily range): BP systolic 94–153; BP diastolic 57–72; PULSE 86–113; RESP 16–20; TEMP 36.5–38.3; O2SAT 93–99; BMI 23.2; BMI 23.3
[2020-01-12 00:53] LABS: POC Glucose,Bedside 223 (70-110)
--- NOTE | 2020-01-12 05:35 | PC.NURSE ---
Addendum entered by Onel Moon RN 01/12/20 06:08: Pt more cooperative this am. This RN educated pt on use of IS. Pt demonstrated understanding. IS best of 500 at this time. Original Note: Pt new admit this shift for hyperglycemia, uti, sepsis, pna. Pt arrived to floor somewhat lethargic and very poor historian during admission process (history obtained from ED reports). Finger stick of 223 upon arrival. Pt bathed and erythema to coccyx noted although blanchable. Excoriations to groins cleaned and power applied. Abrasions to right hand and forearm cleaned and dressed. LLE is noticeably swollen and scabbed. Pt states she fell a couple days ago when questioned about origin but unclear on details. Palpable hernia like mass noted to mid abdomen during assessment. Expir. and insp. rhonchi and expiratory wheezing noted t/o lung geiger anteriorly and posteriorly, some cleared w/ cough. Sputum sent to lab. Russell to bedside drain w/ cloudy, straw colored urine noted. Pt has been incontinent of bowel w/ 2 bm's this shift. Tolerating 2LNC which she wears at home. Pt did run temp of 100.9 rectally and had c/o pain to hips and LLE. paged and gave orders for Tylenol and norco (see notification). Temp on reassessment of 97.7 orally. No other complaints reported. Password in [id number]
[2020-01-12 05:50] LABS: Basophils # 0.1 K/mm3 (0-0.2); Eosinophils # 0.2 K/mm3 (0.0-0.4); Eosinophils % 1.9 % (0.1-12.0); Hematocrit 32.9 % (37.0-47.0); Hemoglobin 10.1 g/dL (12.2-16.2); Lymphocytes # 2.6 K/mm3 (0.7-4.5); Lymphocytes % 22.7 % (10-50); Mean Corpuscular HGB Conc 30.7 g/dL (31.8-35.4); Mean Corpuscular Hemoglobin 24.7 pg (27.0-31.2); Mean Corpuscular Volume 80.2 fl (81-99); Mean Platelet Volume 8.1 fl (7.4-10.4); Monocytes # 0.7 K/mm3 (0.1-1.0); Monocytes % 6.1 % (1.7-9.3); Neutrophils # 7.9 K/mm3 (1.8-7.8); Neutrophils % 68.3 % (37.0-80.0); Platelet Count 237 K/mm3 (142-424); Red Cell Distribution Width 17.9 % (11.5-17.5); White Blood Count 11.5 K/mm3 (4.8-10.8)
[2020-01-12 05:52] LABS: Alanine Aminotransferase 11 U/L (12-78); Albumin Level 2.4 g/dl (3.5-5.0); Albumin/Globulin Ratio 0.8 (1.1-1.8); Alkaline Phosphatase 117 U/L (38-126); Aspartate Amino Transferase 42 U/L (14-36); Bilirubin,Total 0.3 mg/dl (0.2-1.3); Blood Urea Nitrogen 18 mg/dl (7-17); Calcium 7.6 mg/dl (8.4-10.2); Carbon Dioxide 23 mmol/L (22.0-30.0); Chloride 102 mmol/L (98-107); Creatinine Clearance Estimated 155 mL/min (50-200); Estimated Glomerular Filt Rate 166 ml/min (>60); GFR (African American) 201 ML/MIN (>60); Sodium 129 mmol/L (136-145); Total Protein,Serum 5.4 g/dl (6.3-8.2)
[2020-01-12 06:01] LABS: Glucose 225 mg/dl (74-100)
--- NOTE | 2020-01-12 07:38 | HMH.PHAVTE ---
[facility] Pharmacy VTE Monitoring - Patient Demographics Admission date: 01/11/20 Report Date: 01/12/20 Time: 07:39 Allergies/Adverse Reactions: Patient Allergies Penicillins Allergy (Verified 06/25/19 06:08) Unknown allergy reaction Sulfa (Sulfonamide Antibiotics) Allergy (Verified 06/25/19 06:08) Unknown allergy reaction Height: 1.63 m Weight: 61.717 kg Patient Problems: Current Active Problems Fatigue (Acute) Right middle lobe pneumonia (Acute) UTI (urinary tract infection) (Acute) Hyperglycemia due to type 2 diabetes mellitus (Acute) SIRS (systemic inflammatory response syndrome) (Acute) - VTE Risk Labs: VTE Related Lab Results Hgb 10.1 g/dL (12.2-16.2) L 01/12/20 05:24 Hct 32.9 % (37.0-47.0) L 01/12/20 05:24 Plt Count 237 K/mm3 (142-424) 01/12/20 05:24 BUN 18 mg/dl (7-17) H 01/12/20 05:24 Creatinine 0.40 mg/dl (0.52-1.04) L D 01/12/20 05:24 Estimated Creat Clear 155 mL/min (50-200) 01/12/20 05:24 Was VTE Risk Assessment Performed: Yes VTE Score: 6 VTE Risk Level: Moderate Risk Clinical Trial Participant: No - Prophylaxis VTE Prophylaxis Ordered?: Yes Types of VTE Prophylaxis: TEDS Knee High
--- NOTE | 2020-01-12 08:22 | HMH.HP ---
*Admission Date: 01/11/20 <Iwona Drummond - 01/12/20 08:39> *Chief complaint: left leg pain ; AMS <Iwona Drummond - 01/12/20 08:39> *History of present illness: Ms. Brown is a 54-year-old female with a complicated medical history to include coronary artery disease, COPD, previous ulcers, diabetes mellitus, and recent fall who was brought to [facility] emergency room via EMS at her sister's direction due to altered mental status and decline. Patient is a poor historian. She cannot remember the last few days. She does relate that she has been living with her sister for several weeks after having cervical neck surgery in October. She states she stayed in the hospital for about a month and then was rehabbing at [facility] in [place]. She then continued with her rehab at her sister's home here in [place] and seemed to be doing quite well. She then fell about 2 to 3 days ago when getting out of the car injuring her left leg. She has been unable to to ambulate but has been able to transfer. Her sister was able to manage her care at home. She feels that this is why she presented to the emergency room. She does not recall having a cough, fever, or shortness of breath. She denies chest pain but does have nausea with a decrease in appetite/eating with weight loss. With evaluation in the emergency room CT of the head showed no acute changes. She was felt to have a developing right middle lobe pneumonia and a urinary tract infection. Her blood sugar was quite elevated and she was given insulin with a good response. She received a bolus of IV fluids and was started on Rocephin. She did improve and became more responsive and began to answer questions appropriately. She was then admitted for further evaluation and treatment. This a.m. patient does not feel well. She complains of her left leg hurting. She denies shortness of breath and has an occasional cough. Laboratory data reveals a low sodium of 129 with a potassium of 3; renal function is good. She had a low blood sugar of 59 during the night but was 225 this a.m. AST is slightly elevated at 42 with ALT of 11. Urinalysis does indicate a UTI. She is positive for opiates in her toxicology. COVID-19 was negative and respiratory panel was other tarango negative. <Vy Drummondhy 01/12/20 09:05> [facility] History Medical History: Reports:: Coronary Artery Disease, Deep Vein Thrombosis, Depression, Diabetes Mellitus Type 1, Diabetes Mellitus Type 2, Gastroesophageal Reflux Disease(GERD), Hyperlipidemia, Hypertension, Myocardial Infarction <Drummond,Iwona 01/12/20 08:39> *Have you ever received a pneumonia vaccine?: No (unknown) <DrummondIwona carrillo 01/12/20 08:39> *Have you received a flu vaccine this season?: No (unknown) <DrummondIwona 01/12/20 08:39> Other Surgeries: Yes: Cardiac Catheterization, Coronary Stent <Drummond,Iwona 01/12/20 08:39> - *Social History Smoking Status: Current every day smoker <Iwona Drummond 01/12/20 08:39> Tobacco Type: cigarettes <HodaIwona 01/12/20 08:39> # Packs/Day (cigarettes): 2 <Iwona Drummond 01/12/20 09:05> #Yrs smoked (if former smoker): 35 <Iwona Drummond 01/12/20 08:39> Alcohol Intake: never <HodaIwona 01/12/20 08:39> Substance Use Type: denies use <HodaIwona 01/12/20 08:39> *Occupational Status:: disabled <Drummond,Iwona 01/12/20 08:39> *Travel in the last 8 weeks: None <Iwona Drummond 01/12/20 08:39> - Psychiatric History Pschychiatric History:: Reports:: Depression <Iwona Drummond 01/12/20 08:39> Family Hx:: Coronary Artery Disease, Diabetes, Heart Attack <Iwona Drummond 01/12/20 09:05> Review of Systems - Constitutional Reports chills, Reports headache(s), Reports weakness <Iwona Drummond 01/12/20 09:05> - Eyes Denies change in vision <Iwona Drummond 01/12/20 09:05> - ENT Denies ear pain, Denies sore throat <Iwona Drummond 01/12/20 09:05> - *Cardiovascular Reports
--- NOTE | 2020-01-12 08:23 | CA_ITS ---
APPROVED REPORT Left Lower Extremity Venous Study for DVT. Manager Communication: CT Indications Lower Extremity Pain: Lower Extremity Edema: Left fall with left leg edema and pain Vein Imaging EIV (L): Not Visualized CFV (L): Non-Compressible SFJ (L): Non-Compressible FEM (L): Non-Compressible POP (L): Non-Compressible DFV (L): Non-Compressible PTV (L): Non-Compressible GSV (L): Non-Compressible SSV (L): Not Visualized Peroneals (L):Partially Compressible GAS (L): Partially Compressible Findings LLE positive DVT/SVT. CFV, SFV, GSV, POP, PT, calf veins all positive, non-compressible, thrombus noted. RN notified Preethi. Conclusion Extensive DVT Left lower extremity Electronically signed by : Ward Le MD 01/12/2020 17:41:37
--- NOTE | 2020-01-12 08:24 | XR_ITS ---
PROCEDURE: XR KNEE LT 2V CLINICAL INDICATION: left leg pain with edema and pain Left leg pain with edema COMPARISON: No exams were available for comparison FINDINGS: No fracture or dislocation. No lytic or blastic change. There is normal mineralization. There are mild osteoarthritic changes of the medial compartment and patellofemoral joint. Other findings:There may be a small suprapatellar effusion. IMPRESSION: Mild osteoarthritis with possible small suprapatellar effusion otherwise negative Dictated by: Ward Le MD 01/12/2020 12:53 Electronically signed by Ward Le MD in [place] 01/12/2020 12:53
--- NOTE | 2020-01-12 08:24 | XR_ITS ---
PROCEDURE: XR HIP LT 2-3V W/PELVIS CLINICAL INDICATION: left leg pain after fall with edema Posttraumatic pain COMPARISON: XR PELVIS 1-2V from 06/25/2019 FINDINGS: There are mild osteoarthritic changes of the left hip. On the AP view of the left hip there is a faint curvilinear lucency at the base of the greater trochanter which could be due to nondisplaced fracture. CT may confirm. Russell catheter is present. Otherwise negative. IMPRESSION: Possible nondisplaced fracture involving the greater trochanter with mild osteoarthritic change. CT may provide further evaluation. Dictated by: Ward Le MD 01/12/2020 12:57 Electronically signed by Ward Le MD in [facility] 01/12/2020 12:57
--- NOTE | 2020-01-12 09:33 | PC.NURSE ---
after venous ultrasound they reported patient noted to have dvt of entire leg and svt of thigh area. stated they would have preliminary done and sent up. reported this to janell bonilla
--- NOTE | 2020-01-12 11:19 | HMH.PHAINT ---
HOME MEDICATIONS RECONCILED FROM RX LISTS FROM BOTH [facility] AND [facility].
--- NOTE | 2020-01-12 13:35 | CT_ITS ---
PROCEDURE: CT HIP LT WO CON CLINICAL HISTORY: possible Fx of the left hip Left hip pain following injury abnormal radiograph COMPARISON: CT ABDOMEN PELVIS W CON from 06/25/2019 XR HIP LT 2-3V W/PELVIS from 01/12/2020 TECHNIQUE: Axial images obtained with sagittal and coronal reformats. All CT scans at the facility use one or more dose reduction, viz: automated exposure control, ma/kV adjustment per patient size (including targeted exams where dose is matched to indication, i.e. head), or iterative reconstruction technique. FINDINGS: On the x-ray there was a questionable lucency through the base of the greater trochanter medially. There is a moderate amount of soft tissue edema and subcutaneous edema about the left hip with diffuse anasarca. No definite fracture is evident. There are mild osteoarthritic changes of the left hip. A faint curvilinear lucency is once again noted along the medial aspect of the greater trochanter. This however is felt to be due to ridging of the bone and not a fracture. IMPRESSION: 1. No definite fracture. 2. Mild osteoarthritic change left hip. 3. Anasarca Dictated by: Ward Le MD 01/12/2020 16:14 Electronically signed by Ward Le MD in [facility] 01/12/2020 16:14
--- NOTE | 2020-01-12 13:58 | PC.NURSE ---
verified with janell bonilla that ct of hip could be done with out contrast
[2020-01-12 14:47] LABS: POC Glucose,Bedside 187 (70-110)
[2020-01-12 17:01] LABS: Adenovirus F 40/41, stool Not Detected (NotDetected); Astrovirus Not Detected (NotDetected); Campylobacter Not Detected (NotDetected); Cryptosporidium Not Detected (NotDetected); Cyclospora Cayetanesis Not Detected (NotDetected); Entamoeba histolytica Not Detected (NotDetected); Enteroaggregative E coli Not Detected (NotDetected); Enteropathogenic E coli Not Detected (NotDetected); Enterotoxigenic E coli Not Detected (NotDetected); Giardia lamblia Not Detected (NotDetected); Norovirus Not Detected (NotDetected); Plesimonas Shigalloides, PCR Not Detected (NotDetected); Rotavirus A Not Detected (NotDetected); Salmonella, PCR Not Detected (NotDetected); Sapovirus Not Detected (NotDetected); Shiga-like toxin E coli Not Detected (NotDetected); Shigella Enterovasive E coli Not Detected (NotDetected); Vibrio Cholerae Not Detected (NotDetected); Vibrio, PCR Not Detected (NotDetected); Yersinia Entercolitica, PCR Not Detected (NotDetected)
[2020-01-12 17:10] LABS: POC Glucose,Bedside 203 (70-110)
--- NOTE | 2020-01-12 18:39 | PC.NURSE ---
patient has slept most of day. very sleepy but easy to arouse. duarte draining dark urine. left leg remains swollen. has had multiple loose foul smelling bowel movements so diarrhea panel ordered. complaints of stomach cramping and leg/hip pain. bp has gone back up. has had poor appetite. has had some nausea and one episode of vomiting. complaints of being cold. temp within normal limits. vitals stable. on 2l o2 states on this at home. will continue to monitor.
--- NOTE | 2020-01-12 19:19 | PC.NURSE ---
report given to mio
[2020-01-12 19:34] LABS: Clostridium Difficile A/B, PCR Detected (NotDetected)
--- NOTE | 2020-01-12 19:34 | PC.NURSE ---
lab called with result of stool sample with a result of cdiff. paged explosion welder at this time
--- NOTE | 2020-01-12 19:46 | PC.NURSE ---
spoke with dr barrientos clinical education manager for mabel. made md aware of cdiff result and patient nausea/vomiting orders received for flagyl 500mg iv q8hr and zofran 4mg iv q8hr prn for nausea
[2020-01-12 20:53] LABS: POC Glucose,Bedside 236 (70-110)
[2020-01-12 21:53] LABS: POC Glucose,Bedside 151 (70-110)
[2020-01-13] VITALS (9 sets, daily range): BP systolic 103–113; BP diastolic 46–73; PULSE 67–100; RESP 18–20; TEMP 36.6; O2SAT 93–100; BMI 24.4
[2020-01-13 06:20] LABS: Chloride 107 mmol/L (98-107); Sodium 135 mmol/L (136-145)
[2020-01-13 06:23] LABS: Blood Urea Nitrogen 9 mg/dl (7-17); Carbon Dioxide 25 mmol/L (22.0-30.0); Creatinine Clearance Estimated 217 mL/min (50-200); Estimated Glomerular Filt Rate 231 ml/min (>60); GFR (African American) 279 ML/MIN (>60)
[2020-01-13 06:24] LABS: Glucose 134 mg/dl (74-100); Magnesium 1.4 mg/dl (1.6-2.3)
[2020-01-13 06:28] LABS: Basophils # 0.1 K/mm3 (0-0.2); Basophils % 0.6 % (0.1-2.0); Eosinophils # 0.3 K/mm3 (0.0-0.4); Eosinophils % 3.2 % (0.1-12.0); Hematocrit 30.4 % (37.0-47.0); Hemoglobin 9.2 g/dL (12.2-16.2); Lymphocytes # 3.6 K/mm3 (0.7-4.5); Lymphocytes % 39.1 % (10-50); Mean Corpuscular HGB Conc 30.2 g/dL (31.8-35.4); Mean Corpuscular Hemoglobin 24.3 pg (27.0-31.2); Mean Corpuscular Volume 80.3 fl (81-99); Mean Platelet Volume 8.3 fl (7.4-10.4); Monocytes # 0.5 K/mm3 (0.1-1.0); Monocytes % 5.7 % (1.7-9.3); Neutrophils # 4.7 K/mm3 (1.8-7.8); Neutrophils % 51.4 % (37.0-80.0); Platelet Count 321 K/mm3 (142-424); Red Blood Count 3.78 M/mm3 (4.20-5.40); Red Cell Distribution Width 17.9 % (11.5-17.5); White Blood Count 9.1 K/mm3 (4.8-10.8)
[2020-01-13 06:52] LABS: Thyroid Stimulating Hormone 1.44 uIU/mL (0.465-4.68)
--- NOTE | 2020-01-13 08:36 | HMH.ACPN2 ---
<Iwona Drummond - Last Filed: 01/13/20 08:36> Internal Medicine - PN: Subj *Date: 01/13/20 *Time: 08:36 Interval history: Patient states she really does not know how she feels as yet this a.m. She describes some right lower chest discomfort which worsens on deep inspiration. She states she experienced a nonproductive cough most of the night. She denies any other chest pain. She does not think she is short of breath. She describes nausea and does not want to eat. She has not vomited. She did have numerous diarrhea stools yesterday with a positive stool for C. difficile. She has been started on Flagyl. She states that her left leg does hurt. CBC this morning shows a white count of 9100 with a hemoglobin of 9.2 and hematocrit of 30.4. Electrolytes with a sodium of 135, potassium remains at 3. BUN and creatinine remain stable. TSH was 1.44. Urine, blood, and sputum cultures are all pending. Left hip CT revealed no definite fracture with mild osteoarthritic changes and anasarca. Left knee x-rays show mild osteoarthritis and possible small suprapatellar effusion. Vascular studies of the left lower extremity show extensive DVT. Exam Vital signs and Labs for Last 24 Hours: Temp Pulse Resp BP Pulse Ox 97.9 F 99 H 18 113/69 99 01/13/20 08:00 01/13/20 08:00 01/13/20 08:00 01/13/20 08:00 01/13/20 08:00 Laboratory Results - last 24 hr 01/12/20 06:01: POC Glucose 236 H 01/12/20 11:22: POC Glucose 187 H 01/12/20 16:17: POC Glucose 203 H 01/12/20 16:25: Stl Aeromonas (PCR) Not detected, Stl C. cayetanensis PCR Not detected, Stool Rotavirus (PCR) Not detected, Stl Adenov F 40/41 PCR Not detected, Stool Astrovirus (PCR) Not detected, Stool Campylobacter PCR Not detected, Stl C.difficile Tox PCR Detected A, Stool Cryptosporidium PCR Not detected, Stl E.coli Shiga Tox PCR Not detected, Stool E coli O157 PCR Not detected, Stl Enterotoxigenic E PCR Not detected, Stool EPEC (PCR) Not detected, Stool EAEC (PCR) Not detected, Stl E. histolytica PCR Not detected, Stool Giardia Lamblia PCR Not detected, Stool Salmonella PCR Not detected, Stool Sapovirus (PCR) Not detected, Stl P. shigelloides PCR Not detected, Stl Shigella/EIEC PCR Not detected, St Y.enterocolitica PCR Not detected, Stool Vibrio (PCR) Not detected, Stl Vibrio cholerae PCR Not detected, Stl Norovirus GI/GII PCR Not detected 01/12/20 21:30: POC Glucose 151 H 01/13/20 05:30: WBC 9.1, RBC 3.78 L, Hgb 9.2 L, Hct 30.4 L, MCV 80.3 L, MCH 24.3 L, MCHC 30.2 L, RDW 17.9 H, Plt Count 321 D, MPV 8.3, Neut % (Auto) 51.4, Lymph % (Auto) 39.1, Harney % (Auto) 5.7, Eos % (Auto) 3.2, Baso % (Auto) 0.6, Neut # (Auto) 4.7, Lymph # (Auto) 3.6, Harney # (Auto) 0.5, Eos # (Auto) 0.3, Baso # (Auto) 0.1 01/13/20 05:30: Sodium 135 L, Potassium 3.0 L, Chloride 107, Carbon Dioxide 25, Anion Gap 6.0, BUN 9 D, Creatinine 0.30 L D, Estimated Creat Clear 217, Estimated GFR 231, Est GFR ( Amer) 279 D, Glucose 134 H, Calcium 7.0 L, Magnesium 1.4 L, TSH 1.44 I & O for Last 24 hours: Intake & Output 01/10/20 01/11/20 01/12/20 01/13/20 11:59 11:59 11:59 11:59 Intake Total 2998 / 2998 1490 / 1490 Output Total 300 / 300 675 / 675 Balance 2698 / 2698 815 / 815 Weight 136 lb 1.003 oz 143 lb 2 oz Microbiology Reports for the Last 24 Hours: Microbiology 01/12/20 04:16 Sputum - Expectorated Sputum Gram Stain - Final 01/11/20 14:20 Urine,Catheterized Urine Culture - Preliminary - Constitutional no acute distress Comments: Awakened easily for assessment - *Routine Respiratory Exam Present: CTA bilaterally (Anteriorly and posteriorly) - *Routine Cardiovascular Exam Present: RRR - *Routine Abdominal Exam Present: soft, normoactive bowel sounds. Absent: tenderness, distended - *Routine Extremities Exam Comments: Edema and discoloration of the left leg has improved. Remains tender. Unable to feel pedal pulses on the left. Right leg without edema. Go
[2020-01-13 08:52] LABS: POC Glucose,Bedside 163 (70-110)
[2020-01-13 12:25] LABS: POC Glucose,Bedside 234 (70-110)
--- NOTE | 2020-01-13 19:08 | PC.NURSE ---
PATIENT HAS BEEN RESTING IN BED T/O SHIFT. SHE IS C/O HEARTBURN AT THIS TIME. DR KERNS IS GOING TO ORDER PROTONIX AT . HERNANDES CATH IS PATENT AND DRAINING TO GRAVITY WITH STRONG TEA COLORED URINE. PATIENT HAS BEEN INCONT OF STOOL THIS SHIFT.
[2020-01-13 23:41] LABS: POC Glucose,Bedside 231 (70-110)
[2020-01-13 23:41] LABS: POC Glucose,Bedside 211 (70-110)
[2020-01-14] VITALS (11 sets, daily range): BP systolic 103–142; BP diastolic 56–83; PULSE 77–107; RESP 16–20; TEMP 36.4–36.8; O2SAT 94–100; BMI 25.1
--- NOTE | 2020-01-14 06:03 | PC.NURSE ---
Addendum entered by Onel Moon RN 01/14/20 06:25: IS best of 750 this shift Original Note: Pt has slept in long intervals this shift. She is easy to arousal and A&O x4. PT did have c/o hip pain as well as nausea at beginning of shift, medicated per NOV w/ relief. No other complaints reported this shift. She has been repositioned often to prevent further breakdown. Drsg to coccyx remains in place. LLE remains swollen and tender to touch. Pedal pulse on LLE located w/ Doppler +1. RA sat of 94% obtained at rest at 0444. Pt has remained on RA since and tolerating well. Pt is incontinent of bowel and has had 3 loose, green bm's this shift. Remains in enteric contact precautions d/t CDIFF. Russell is patent to bedside drain w/ clear, straw colored urine noted. VSS.
[2020-01-14 06:13] LABS: POC Glucose,Bedside 111 (70-110)
[2020-01-14 06:28] LABS: Blood Urea Nitrogen 4 mg/dl (7-17); Carbon Dioxide 24 mmol/L (22.0-30.0); Chloride 109 mmol/L (98-107); Creatinine Clearance Estimated 223 mL/min (50-200); Estimated Glomerular Filt Rate 231 ml/min (>60); GFR (African American) 279 ML/MIN (>60); Glucose 114 mg/dl (74-100); Sodium 135 mmol/L (136-145)
[2020-01-14 06:30] LABS: Basophils # 0.1 K/mm3 (0-0.2); Basophils % 0.6 % (0.1-2.0); Eosinophils # 0.4 K/mm3 (0.0-0.4); Eosinophils % 4.1 % (0.1-12.0); Hematocrit 31.9 % (37.0-47.0); Hemoglobin 9.5 g/dL (12.2-16.2); Lymphocytes # 2.8 K/mm3 (0.7-4.5); Lymphocytes % 32.9 % (10-50); Mean Corpuscular HGB Conc 29.8 g/dL (31.8-35.4); Mean Corpuscular Hemoglobin 24.2 pg (27.0-31.2); Mean Corpuscular Volume 81.3 fl (81-99); Mean Platelet Volume 7.4 fl (7.4-10.4); Monocytes # 0.4 K/mm3 (0.1-1.0); Monocytes % 5.2 % (1.7-9.3); Neutrophils # 4.8 K/mm3 (1.8-7.8); Neutrophils % 57.1 % (37.0-80.0); Platelet Count 359 K/mm3 (142-424); Red Blood Count 3.92 M/mm3 (4.20-5.40); Red Cell Distribution Width 17.9 % (11.5-17.5); White Blood Count 8.5 K/mm3 (4.8-10.8)
--- NOTE | 2020-01-14 08:21 | HMH.ACPN2 ---
Internal Medicine - PN: Subj *Date: 01/14/20 *Time: 08:21 Interval history: Patient reports of pain in her right lung and in her left leg. No problems from nursing overnight. Patient reports a poor appetite as well. She is still having loose watery stools that are been described as green in color Exam Vital signs and Labs for Last 24 Hours: Temp Pulse Resp BP Pulse Ox 98.1 F 91 H 18 103/56 L 96 01/14/20 03:44 01/14/20 05:16 01/14/20 03:44 01/14/20 03:44 01/14/20 05:16 Laboratory Results - last 24 hr 01/11/20 14:20: Urine Color Yellow, Urine Appearance Clear, Urine pH 6.0, Ur Specific [place] 1.020, Urine Protein Negative, Urine Glucose (UA) 3+, Urine Ketones Negative, Urine Blood 2+, Urine Nitrate Positive, Urine Bilirubin Negative, Urine Urobilinogen 0.2, Ur Leukocyte Esterase 2+ A, Urine RBC 20-50, Urine WBC Tntc, Ur Squamous Epith Cells 5-10, Urine Bacteria 2+ 01/13/20 07:03: POC Glucose 163 H 01/13/20 12:17: POC Glucose 234 H 01/13/20 16:50: POC Glucose 211 H 01/13/20 21:30: POC Glucose 231 H 01/14/20 05:15: POC Glucose 111 H 01/14/20 05:40: WBC 8.5, RBC 3.92 L, Hgb 9.5 L, Hct 31.9 L, MCV 81.3, MCH 24.2 L, MCHC 29.8 L, RDW 17.9 H, Plt Count 359, MPV 7.4, Neut % (Auto) 57.1, Lymph % (Auto) 32.9, Wall[place] % (Auto) 5.2, Eos % (Auto) 4.1, Baso % (Auto) 0.6, Neut # (Auto) 4.8, Lymph # (Auto) 2.8, Waller # (Auto) 0.4, Eos # (Auto) 0.4, Baso # (Auto) 0.1 01/14/20 05:40: Sodium 135 L, Potassium 3.0 L, Chloride 109 H, Carbon Dioxide 24, Anion Gap 5.0, BUN 4 L D, Creatinine 0.30 L, Estimated Creat Clear 223, Estimated GFR 231, Est GFR ( Amer) 279, Glucose 114 H, Calcium 7.0 L I & O for Last 24 hours: Intake & Output 01/11/20 01/12/20 01/13/20 01/14/20 11:59 11:59 11:59 11:59 Intake Total 2998 / 2998 1590 / 1590 2842 / 2842 Output Total 300 / 300 675 / 675 303 / 303 Balance 2698 / 2698 915 / 915 2539 / 2539 Weight 136 lb 1.003 oz 143 lb 2 oz 147 lb 3 oz Microbiology Reports for the Last 24 Hours: Microbiology 01/11/20 14:20 Urine,Catheterized Urine Culture - Preliminary Escherichia coli 01/11/20 14:30 Blood Blood Culture - Preliminary NO GROWTH AFTER 48 HOURS 01/11/20 14:30 Blood Blood Culture - Preliminary NO GROWTH AFTER 48 HOURS 01/12/20 04:16 Sputum - Expectorated Sputum Gram Stain - Final 01/12/20 04:16 Sputum - Expectorated Sputum Sputum Culture - Preliminary Narrative: Patient does not appear to be in any pain. Lung exam reveals rales in the right lateral midlung and right lateral base. Left leg is edematous from her DVT. Heart had a regular rate and rhythm. Abdomen is soft with bowel sounds present Assessment and Plan (1) Right middle lobe pneumonia Current visit: Yes Status: Acute Category: Medical Code(s): J18.9 - Pneumonia, unspecified organism (2) Hypokalemia Current visit: Yes Status: Acute Category: Medical Code(s): E87.6 - Hypokalemia (3) E. coli UTI Current visit: Yes Status: Acute Category: Medical Code(s): N39.0 - Urinary tract infection, site not specified; B96.20 - Unspecified Escherichia coli [E. coli] as the cause of diseases classified elsewhere (4) Deep vein thrombosis (DVT) of left lower extremity Current visit: Yes Status: Acute Qualifiers: Affected thrombotic vein of extremity: femoral Category: Medical Code(s): I82.402 - Acute embolism and thrombosis of unspecified deep veins of left lower extremity (5) Altered mental status Current visit: Yes Status: Acute Category: Medical Code(s): R41.82 - Altered mental status, unspecified (6) Hyperglycemia due to type 2 diabetes mellitus Current visit: Yes Status: Acute Category: Medical Code(s): E11.65 - Type 2 diabetes mellitus with hyperglycemia (7) Uncontrolled diabetes mellitus Current visit: Yes Status: Acute Category: Medical Code(s): E11.65 - Type 2
--- NOTE | 2020-01-14 11:24 | HMH.PTEV ---
Physical Therapy Evaluation Rehab PT IP Evaluation Start: 01/14/20 10:02 Freq: ONCE Status: Active Protocol: Document 01/14/20 11:18 CHASTITY (Rec: 01/14/20 11:24 MENABILLIE [id number]) Subjective/History History History Ms. Brown is a 54-year-old female with a complicated medical history to include coronary artery disease, COPD, previous ulcers, diabetes mellitus, and recent fall who was brought to [facility] emergency room via EMS at her sister's direction due to altered mental status and decline. Patient is a poor historian. She cannot remember the last few days. She does relate that she has been living with her sister for several weeks after having cervical neck surgery in October. She states she stayed in the hospital for about a month and then was rehabbing at [facility] in [place]. She then continued with her rehab at her sister' s home here in [place] and seemed to be doing quite well. She then fell about 2 to 3 days ago when getting out of the car injuring her left leg. She has been unable to to ambulate but has been able to transfer. Her sister was able to manage her care at home. She feels that this is why she presented to the emergency room. She does not recall having a cough, fever, or shortness of breath. She denies chest pain but does have nausea with a decrease in appetite/eating with weight loss. Subjective Subjective Pt reports c/o pain in low back and hip along w/ SOA, dizzy/light headedness Rehab PT IP Eval Objective Appearance Patient Behavior Ap
[2020-01-14 11:30] LABS: POC Glucose,Bedside 188 (70-110)
--- NOTE | 2020-01-14 14:40 | DIET.NUTRFU ---
BG have been moderately high, avg 200. Renal labs have improved. She has been very fatigued t/o stay which is affecting intakes- 25%. Continuing to monitor and encourage intakes.
[2020-01-14 17:42] LABS: POC Glucose,Bedside 155 (70-110)
--- NOTE | 2020-01-14 18:00 | PC.NURSE ---
HAS REQUIRED MEDICATION FOR PAIN AND NAUSEA THIS SHIFT. HAS BEEN INCONTINENT OF TWO GREEN LOOSE STOOLS. PT HAS BEEN CHANGED BY STAFF, W/ BARRIER CREAM AND POWDER PLACED ON PT EACH TIME. PT'S SKIN IS VERY EXCORIATED FROM STOOL INCONTINENCE. HAS BEEN TURNED BY STAFF Q2H WHILE IN BED. HERNANDES CATH TO DRAIN AT BEDSIDE. GOT UP W/ PT THIS SHIFT, TOLERATING WELL. REMAINS ON ROOM AIR THROUGHOUT DAY. NO NEW COMPLAINTS VOICED.
--- NOTE | 2020-01-14 19:21 | PC.NURSE ---
report given to regulo
[2020-01-14 22:26] LABS: POC Glucose,Bedside 130 (70-110)
[2020-01-15] VITALS (8 sets, daily range): BP systolic 108–134; BP diastolic 62–81; PULSE 88–107; RESP 18; TEMP 36.3–36.9; O2SAT 92–99; BMI 25.2
--- NOTE | 2020-01-15 05:23 | PC.NURSE ---
Addendum entered by Onel Moon RN 01/15/20 05:53: Correction- Urine is tea colored, clear. 500cc out this shift. Original Note: Pt c/o generalized pain at beginning of shift and medicated per MAR w/ reported relief. No other complaints reported. IS encouraged often and pt able to obtain best of 750 this shift. She has had x1 loose, green BM and Russell to bedside drain remains patent w/ clear, deep urine noted. Excoriation to groins cleaned and power applied. Repositioned often. Tolerating RA w/ sats between 92%-98%. LLE edematous w/ +1 pedal pulse.
[2020-01-15 06:09] LABS: POC Glucose,Bedside 140 (70-110)
--- NOTE | 2020-01-15 07:59 | HMH.ACPN2 ---
Internal Medicine - PN: Subj *Date: 01/15/20 *Time: 07:59 Interval history: Patient has no new complaints this morning. She reports that pain in the left lower extremity is improving. She denies any pain in the right chest this morning. She reports poor appetite. Nursing staff reports patient had 1 loose stool overnight. Patient remains on room air and is oxygenating well. Exam Vital signs and Labs for Last 24 Hours: Temp Pulse Resp BP Pulse Ox 97.4 F L 99 H 18 134/81 93 L 01/15/20 04:00 01/15/20 06:02 01/15/20 04:00 01/15/20 04:00 01/15/20 06:02 Laboratory Results - last 24 hr 01/11/20 14:20: Urine Color Yellow, Urine Appearance Clear, Urine pH 6.0, Ur Specific [place] 1.020, Urine Protein Negative, Urine Glucose (UA) 3+, Urine Ketones Negative, Urine Blood 2+, Urine Nitrate Positive, Urine Bilirubin Negative, Urine Urobilinogen 0.2, Ur Leukocyte Esterase 2+ A, Urine RBC 20-50, Urine WBC Tntc, Ur Squamous Epith Cells 5-10, Urine Bacteria 2+ 01/14/20 11:16: POC Glucose 188 H 01/14/20 17:32: POC Glucose 155 H 01/14/20 20:49: POC Glucose 130 H 01/15/20 05:47: POC Glucose 140 H I & O for Last 24 hours: Intake & Output 01/12/20 01/13/20 01/14/20 01/15/20 11:59 11:59 11:59 11:59 Intake Total 2998 / 2998 1590 / 1590 3302 / 3302 360 / 360 Output Total 300 / 300 675 / 675 303 / 303 501 / 501 Balance 2698 / 2698 915 / 915 2999 / 2999 -141 / -141 Weight 136 lb 1.003 oz 143 lb 2 oz 147 lb 3 oz 148 lb 2 oz Microbiology Reports for the Last 24 Hours: Microbiology 01/11/20 14:20 Urine,Catheterized Urine Culture - Final Escherichia coli 01/12/20 04:16 Sputum - Expectorated Sputum Gram Stain - Final 01/12/20 04:16 Sputum - Expectorated Sputum Sputum Culture - Preliminary Narrative: Patient is resting comfortably in bed. She does have some faint expiratory wheeze. Heart has a regular rate and rhythm. Abdomen is soft and bowel sounds are present. Left lower extremity continues to have 2+ edema that is improving and regressing. Patient does not have any edema above the knee today. Assessment and Plan (1) Right middle lobe pneumonia Current visit: Yes Status: Acute Category: Medical Code(s): J18.9 - Pneumonia, unspecified organism (2) Hypokalemia Current visit: Yes Status: Acute Category: Medical Code(s): E87.6 - Hypokalemia (3) E. coli UTI Current visit: Yes Status: Acute Category: Medical Code(s): N39.0 - Urinary tract infection, site not specified; B96.20 - Unspecified Escherichia coli [E. coli] as the cause of diseases classified elsewhere (4) Deep vein thrombosis (DVT) of left lower extremity Current visit: Yes Status: Acute Qualifiers: Affected thrombotic vein of extremity: femoral Category: Medical Code(s): I82.402 - Acute embolism and thrombosis of unspecified deep veins of left lower extremity (5) Altered mental status Current visit: Yes Status: Acute Category: Medical Code(s): R41.82 - Altered mental status, unspecified (6) Hyperglycemia due to type 2 diabetes mellitus Current visit: Yes Status: Acute Category: Medical Code(s): E11.65 - Type 2 diabetes mellitus with hyperglycemia (7) Uncontrolled diabetes mellitus Current visit: Yes Status: Acute Category: Medical Code(s): E11.65 - Type 2 diabetes mellitus with hyperglycemia (8) SIRS (systemic inflammatory response syndrome) Current visit: Yes Status: Acute Category: Medical Code(s): R65.10 - Systemic inflammatory response syndrome (SIRS) of non-infectious origin without acute organ dysfunction (9) UTI (urinary tract infection) Current visit: Yes Status: Acute Qualifiers: Urinary tract infection type: acute cystitis Category: Medical Code(s): N39.0 - Urinary tract infection, site not specified (10) Fall Current visit: No Status: Acute Qualifiers: Encounter type: initial encounter Qualified Co
--- NOTE | 2020-01-15 08:03 | HMH.DCSUM ---
General - General Admission date:: 01/11/20 Discharge date: 01/16/20 HPI HPI: Ms. Brown is a 54-year-old female with a complicated medical history to include coronary artery disease, COPD, previous ulcers, diabetes mellitus, and recent fall who was brought to [facility] emergency room via EMS at her sister's direction due to altered mental status and decline. Patient is a poor historian. She cannot remember the last few days. She does relate that she has been living with her sister for several weeks after having cervical neck surgery in October. She states she stayed in the hospital for about a month and then was rehabbing at [facility] in [place]. She then continued with her rehab at her sister's home here in [place] and seemed to be doing quite well. She then fell about 2 to 3 days ago when getting out of the car injuring her left leg. She has been unable to to ambulate but has been able to transfer. Her sister was able to manage her care at home. She feels that this is why she presented to the emergency room. She does not recall having a cough, fever, or shortness of breath. She denies chest pain but does have nausea with a decrease in appetite/eating with weight loss. With evaluation in the emergency room CT of the head showed no acute changes. She was felt to have a developing right middle lobe pneumonia and a urinary tract infection. Her blood sugar was quite elevated and she was given insulin with a good response. She received a bolus of IV fluids and was started on Rocephin. She did improve and became more responsive and began to answer questions appropriately. She was then admitted for further evaluation and treatment. This a.m. patient does not feel well. She complains of her left leg hurting. She denies shortness of breath and has an occasional cough. Laboratory data reveals a low sodium of 129 with a potassium of 3; renal function is good. She had a low blood sugar of 59 during the night but was 225 this a.m. AST is slightly elevated at 42 with ALT of 11. Urinalysis does indicate a UTI. She is positive for opiates in her toxicology. COVID-19 was negative and respiratory panel was other tarango negative. Hospital Course Hospital Course: Patient was admitted and work-up revealed multiple infections. Patient had C. difficile diarrhea and was started on IV Flagyl for the first 48 hours of hospitalization. This reduced the frequency of stools. Patient was then transition to oral vancomycin and will finish a 14-day course of oral vancomycin for the C. difficile in her stool. C. difficile was likely caused by recent antibiotic use for bronchitis/pneumonia. Patient underwent work-up on presentation that included a CT scan of the chest which showed groundglass opacities consistent with a viral pneumonia. COVID 19 testing was negative. Patient was continued on Rocephin and azithromycin. She continued to complain of right lung pain and this is where her lung exam was most abnormal with rhonchi and wheezing. On the day of discharge patient has completed 1 week of oral/IV antibiotics. Patient was also identified as having a urinary tract infection with culture growing E. coli. This was sensitive to Rocephin. Patient will be transitioned to an oral antibiotic at discharge Patient has a significant cigarette use history and underlying COPD. Patient initially had an oxygen requirement but by the day of discharge was satting in the mid 90s on room air Patient also had hypokalemia which was treated with both IV and oral potassium replacement. Patient will continue oral potassium replacement at discharge. Patient also was noted to have left lower extremity swelling and a venous Doppler revealed extensive DVT of multiple veins in the left lower extremity. Patient was started on Lovenox 60 mg subcu twice daily and will be transitioned to Eliquis. For the first week patient will need Eliquis 10 m
--- NOTE | 2020-01-15 08:04 | HMH.ACPN ---
Internal Medicine - PN: Subj *Date: 01/15/20 *Time: 08:04 Exam Vital signs and Labs for Last 24 Hours: Temp Pulse Resp BP Pulse Ox 97.4 F L 99 H 18 134/81 93 L 01/15/20 04:00 01/15/20 06:02 01/15/20 04:00 01/15/20 04:00 01/15/20 06:02 Laboratory Results - last 24 hr 01/11/20 14:20: Urine Color Yellow, Urine Appearance Clear, Urine pH 6.0, Ur Specific [place] 1.020, Urine Protein Negative, Urine Glucose (UA) 3+, Urine Ketones Negative, Urine Blood 2+, Urine Nitrate Positive, Urine Bilirubin Negative, Urine Urobilinogen 0.2, Ur Leukocyte Esterase 2+ A, Urine RBC 20-50, Urine WBC Tntc, Ur Squamous Epith Cells 5-10, Urine Bacteria 2+ 01/14/20 11:16: POC Glucose 188 H 01/14/20 17:32: POC Glucose 155 H 01/14/20 20:49: POC Glucose 130 H 01/15/20 05:47: POC Glucose 140 H I & O for Last 24 hours: Intake & Output 01/12/20 01/13/20 01/14/20 01/15/20 23:59 23:59 23:59 23:59 Intake Total 2318 / 2318 1498 / 1498 2384 / 2384 Output Total 775 / 975 200 / 200 303 / 304 501 / 501 Balance 1543 / 1343 1298 / 1298 2081 / 2080 -501 / -501 Weight 62 kg 64.92 kg 66.763 kg 67.188 kg Microbiology Reports for the Last 24 Hours: Microbiology 01/11/20 14:20 Urine,Catheterized Urine Culture - Final Escherichia coli 01/12/20 04:16 Sputum - Expectorated Sputum Gram Stain - Final 01/12/20 04:16 Sputum - Expectorated Sputum Sputum Culture - Preliminary Assessment and Plan (1) Right middle lobe pneumonia Current visit: Yes Status: Acute Category: Medical Code(s): J18.9 - Pneumonia, unspecified organism (2) Hypokalemia Current visit: Yes Status: Acute Category: Medical Code(s): E87.6 - Hypokalemia (3) E. coli UTI Current visit: Yes Status: Acute Category: Medical Code(s): N39.0 - Urinary tract infection, site not specified; B96.20 - Unspecified Escherichia coli [E. coli] as the cause of diseases classified elsewhere (4) Deep vein thrombosis (DVT) of left lower extremity Current visit: Yes Status: Acute Category: Medical Code(s): I82.402 - Acute embolism and thrombosis of unspecified deep veins of left lower extremity (5) Altered mental status Current visit: Yes Status: Acute Category: Medical Code(s): R41.82 - Altered mental status, unspecified (6) Hyperglycemia due to type 2 diabetes mellitus Current visit: Yes Status: Acute Category: Medical Code(s): E11.65 - Type 2 diabetes mellitus with hyperglycemia (7) Uncontrolled diabetes mellitus Current visit: Yes Status: Acute Category: Medical Code(s): E11.65 - Type 2 diabetes mellitus with hyperglycemia (8) SIRS (systemic inflammatory response syndrome) Current visit: Yes Status: Acute Category: Medical Code(s): R65.10 - Systemic inflammatory response syndrome (SIRS) of non-infectious origin without acute organ dysfunction (9) UTI (urinary tract infection) Current visit: Yes Status: Acute Category: Medical Code(s): N39.0 - Urinary tract infection, site not specified (10) Fall Current visit: No Status: Acute Qualifiers: Qualified Code(s): W19.XXXA - Unspecified fall, initial encounter Category: Medical Code(s): W19.XXXA - Unspecified fall, initial encounter (11) Leg injury Current visit: Yes Status: Acute Category: Medical Code(s): S89.90XA - Unspecified injury of unspecified lower leg, initial encounter (12) Acute exacerbation of chronic obstructive airways disease Current visit: No Status: Acute Category: Medical Code(s): J44.1 - Chronic obstructive pulmonary disease with (acute) exacerbation (13) Back pain Current visit: No Status: Chronic Qualifiers: Qualified Code(s): M54.5 - Low back pain; G89.29 - Other chronic pain Category: Medical Code(s): M54.9 - Dorsalgia, unspecified (14) CAD (coronary artery disease) Current visit: No Status: Chronic Qualifiers: Qualified Code(s): I25.10 - Ather
[2020-01-15 09:03] LABS: Anion Gap 8.2 mEq/L (5-15); Carbon Dioxide 21 mmol/L (22.0-30.0); Chloride 106 mmol/L (98-107); Creatinine Clearance Estimated 225 mL/min (50-200); Estimated Glomerular Filt Rate 231 ml/min (>60); GFR (African American) 279 ML/MIN (>60); Glucose 206 mg/dl (74-100); Potassium 3.2 mmoL/L (3.5-5.1); Sodium 132 mmol/L (136-145)
[2020-01-15 09:46] LABS: Blood Urea Nitrogen < 2 mg/dl (7-17)
[2020-01-15 09:47] LABS: Calcium 6.8 mg/dl (8.4-10.2)
[2020-01-15 11:50] LABS: POC Glucose,Bedside 217 (70-110)
--- NOTE | 2020-01-15 12:02 | PC.NURSE ---
Encouraged IS use while awake. Has been able to obtain best of 1000 this shift.
--- NOTE | 2020-01-15 13:38 | PC.NURSE ---
Pt in low spirits today. Has not wanted to participate in care much and has requested to stay in bed thus far. Pt has been asked if she would like to get up to chair for meals, declining. Continued encouraged use of IS. Russell cath to drain at bedside. Has had 1 loose green stool thus far. PRN meds given for pain and nausea per MAR. Will continue to monitor.
[2020-01-15 16:35] LABS: POC Glucose,Bedside 160 (70-110)
[2020-01-16] VITALS: BP 107/70; PULSE 101; RESP 18; TEMP 36.8; O2SAT 98
[2020-01-16 00:57] LABS: POC Glucose,Bedside 148 (70-110)
[2020-01-16 04:00] VITALS: BP 117/79; PULSE 99; RESP 18; TEMP 36.8; O2SAT 97
[2020-01-16 05:00] VITALS: BMI 25.2
[2020-01-16 06:00] LABS: POC Glucose,Bedside 171 (70-110)
[2020-01-16 06:35] VITALS: PULSE 103; O2SAT 93
--- NOTE | 2020-01-16 07:41 | PC.NURSE ---
Pt had a good night, c/o pain and medicated x 1 sleeping thereafter. Awakened easily with staff interaction. FS this am 171 = 2 units, pt sitting up eating breakfast. Reported she was trying to decide if she was going to [place] this morning. Report given to Chela Coles RN. Pt remained safe, monitoring continues.
[2020-01-16 08:00] VITALS: BP 114/72; PULSE 85; RESP 16; TEMP 36.7; O2SAT 97
[2020-01-16 08:14] VITALS: BMI 24.5
--- NOTE | 2020-01-16 08:26 | SW/DCPLANNER ---
SENT REFERRAL TO [facility] Y[facility]ERDAY PER MD AND PATIENT REQUEST WITH PATIENT STATING SHE WAS NOT ABLE TO CARE FOR HERSELF AT HOME AT THIS TIME... SHE IS A [employer] AND IT HAD TO GO TO THE INSURANCE COMPANY TO APPROVE HER STAY THERE.. I RECEIVED A CALL THIS MORNING THAT THE INSURANCE COMPANY APPROVED HER STAY AND SHE WILL DISCHARGE THERE TODAY FOR SKILLED REHAB SERVICES... PATIENT REQUESTED TO GO BY AMBULANCE STATING SHE DOES NOT HAVE ANYONE TO TAKE HER.. I EXPLAINED TO HER THAT SHE MAY BE BILLED FOR HER TRANSPORT SINCE SHE IS ABLE TO SET UP AND RIDE IN A CAR, SHE ACKNOWLEDGED UNDERSTANDING.. REPORT WILL BE CALLED AND PATIENT WILL GO THIS MORNING ONCE AMBULANCE IS AVAILABLE...
[2020-01-16 10:03] VITALS: RESP 18; O2SAT 97
== END 2020-01-16 11:55 | DRG 637 ==
LOC: ER 17:29 → 2ND 17:49
PROVIDERS: Admitting Provider Family Medicine; Emergency Provider Family Medicine; PCP Family Medicine; Visit Provider Family Medicine
DX: E11.65 Type 2 diabetes mellitus with hyperglycemia (principal); J18.9 Pneumonia, unspecified organism; N39.0 Urinary tract infection, site not specified; R65.10 Systemic inflammatory response syndrome (SIRS) of non-infectious origin without acute organ dysfunction; J44.1 Chronic obstructive pulmonary disease with (acute) exacerbation; I82.412 Acute embolism and thrombosis of left femoral vein; A04.72 Enterocolitis due to Clostridium difficile, not specified as recurrent; I25.2 Old myocardial infarction; Z95.5 Presence of coronary angioplasty implant and graft; Z88.0 Allergy status to penicillin; Z88.2 Allergy status to sulfonamides; I25.10 Atherosclerotic heart disease of native coronary artery without angina pectoris; Z72.0 Tobacco use; I10 Essential (primary) hypertension; Z79.4 Long term (current) use of insulin; Z79.82 Long term (current) use of aspirin; Z79.899 Other long term (current) drug therapy
CPT/HCPCS: 36415; 70450; 71250; 73502; 73560; 73700; 80048; 80053; 80305; 81001; 82962; 83605; 83735; 84443; 85025; 87040; 87070; 87077; 87086; 87088; 87186; 87205; 87507; 87581; 87633; 87798; 93971; 94640; 94761; 96365; 96367; 96375; 96376; 97110; 97116; 97161; 97530; 99285; J0456; J2405; J3370

== ENCOUNTER 2020-02-12 09:09 | Observation (INO) | payer MEDICARE, SELFPAY ==
[2020-02-12] VITALS (9 sets, daily range): BP systolic 92–124; BP diastolic 56–84; PULSE 77–104; RESP 16–18; TEMP 36.6–36.9; O2SAT 10–100; BMI 29.2; BMI 27.9
--- NOTE | 2020-02-12 09:09 | HMH.EDGENADL ---
ED Disposition Clinical Impression: Hyperglycemia Fracture of right tibia and fibula Qualifiers: Encounter type: initial encounter Fracture type: closed Qualified Code(s): S82.201A - Unspecified fracture of shaft of right tibia, initial encounter for closed fracture Bimalleolar fracture of left ankle Qualifiers: Encounter type: initial encounter Fracture type: closed Qualified Code(s): S82.842A - Displaced bimalleolar fracture of left lower leg, initial encounter for closed fracture Disposition: Admitted As Inpatient Condition on Discharge: Fair Referrals: Provider,Referral, MD [Referring] - - Critical Care Critical Care Time: No Attestation: On , the high probability of a clinically significant, sudden or life threatening deterioration of the following system(s) required my full and direct attention, intervention and personal management. The time I documented below is in addition to time spent performing reported procedures but includes the following listed in this critical care notation. Medical Decision Making - Medical Records Medical records reviewed: Yes: I reviewed the patient's medical records. - Ty Inquiry Pt receiving controlled substance: Yes Ty was queried for this patient: No Reason not queried -: Emergent pt cond-no time Risks and benefits of using a controlled substance: were not discussed with pt by me Comment: patient on hydrocodone chronically Vital Signs: 02/12/20 09:08 02/12/20 11:09 Temperature 97.8 F Temperature Source Oral Pulse Rate [Right] 86 79 Respiratory Rate 16 18 Blood Pressure [Right Arm] 100/60 L 96/61 L Blood Pressure Mean [Right Arm] 73 72 Blood Pressure Source [Right Arm] Automatic Cuff Blood Pressure Position [Right Arm] Sitting 02 Sat by Pulse Oximetry 98 96 Oxygen Delivery Method Room Air - Lab Data Lab Results 02/12/20 09:26: WBC 6.5, RBC 3.68 L, Hgb 9.6 L, Hct 31.2 L, MCV 84.7, MCH 26.0 L, MCHC 30.7 L, RDW 18.8 H, Plt Count 305, MPV 9.0, Neut % (Auto) 55.6, Lymph % (Auto) 35.0, Davidson % (Auto) 5.5, Eos % (Auto) 3.2, Baso % (Auto) 0.8, Neut # (Auto) 3.6, Lymph # (Auto) 2.3, Davidson # (Auto) 0.4, Eos # (Auto) 0.2, Baso # (Auto) 0.1 02/12/20 09:26: Sodium 132 L, Potassium 4.0, Chloride 97 L, Carbon Dioxide 27, Anion Gap 12.0, BUN 10, Creatinine 0.50 L, Estimated Creat Clear 132, Estimated GFR 128, Est GFR ( Amer) 155, Glucose 497 H*, Calcium 7.7 L Result diagrams: 02/12/20 09:26 02/12/20 09:26 Orders (Tests/Meds): ED MEDICATIONS Generic Name Dose Route Start Last Admin Trade Name Freq PRN Reason Stop Dose Admin Sodium Chloride 1,000 mls @ 999 mls/hr 02/12/20 10:30 02/12/20 10:23 Sod Chlor 0.9% 1000ml Bag IV 02/12/20 11:30 999 mls/hr .Q1H1M DELORES Administration Discontinued Medications Generic Name Dose Route Start Last Admin Trade Name Freq PRN Reason Stop Dose Admin Insulin Human Lispro 15 unit 02/12/20 09:58 02/12/20 10:16 Humalog 100 Units/Ml 3ml Vial (Ssi) SQ 02/12/20 09:59 15 unit ONCE ONE Administration Morphine Sulfate 4 mg 02/12/20 09:12 02/12/20 09:26 Morphine 4mg/Ml Syringe IV 02/12/20 09:13 4 mg ONCE ONE Administration Ondansetron HCl 4 mg 02/12/20 09:12 02/12/20 09:26 Zofran 4mg/2ml Vial IV 02/12/20 09:13 4 mg ONCE ONE Administration ORDERS Category Date Time Status Femur XR right 2 views [XR femur RT 2V] Stat Exams 02/12/20 09:45 Taken Pelvis XR 1-2 views [XR pelvis 1-2V] Stat Exams 02/12/20 09:18 Taken XR chest AP Stat Exams 02/12/20 09:18 Taken XR tibia fibula RT 2V Stat Exams 02/12/20 09:11 Taken - Radiology Data #1 Image(s): Chest, Pelvis, Femur (right), Tib/Fib (right), Ankle (left) Image Reviewed: Yes I reviewed the patient's radiology image, Yes I discussed the image results w/the radiologist Chest: Chronic changes left base, no acute disease. Femur: Tibia and fibula: Fracture proximal tibia and fibula. Left ankle: Nondisplaced jackson
--- NOTE | 2020-02-12 09:11 | XR_ITS ---
PROCEDURE: XR TIBIA FIBULA RT 2V CLINICAL INDICATION: fall Extreme pain with deformity COMPARISON: XR FEMUR RT 2V from 02/12/2020 FINDINGS: There is a transverse fracture involving the proximal aspect of the tibia at the proximal diaphysis and the proximal aspect of the fibula at the diaphyseal metaphyseal junction. These fractures are nondisplaced. There is a fat fluid level in the suprapatellar region indicating hemarthrosis IMPRESSION: Nondisplaced proximal tibia and fibular fracture Dictated by: Ward Le MD 02/12/2020 14:27 Electronically signed by Ward Le MD in [place] 02/12/2020 14:27
--- NOTE | 2020-02-12 09:11 | XR_ITS ---
PROCEDURE: XR ANKLE LT MIN 3V CLINICAL INDICATION: fall Posttraumatic pain fall with injury and pain and swelling COMPARISON: XR TIBIA FIBULA RT 2V from 02/12/2020 FINDINGS: There is a nondisplaced fracture involving tip of the medial malleolus. Oblique lucency is also present involving the distal fibula at the level of the joint space consistent with a nondisplaced fracture. The mortise is preserved. There is mild soft tissue swelling medially and laterally. IMPRESSION: Nondisplaced fractures of the medial malleolus and the distal fibula Dictated by: Ward eL MD 02/12/2020 09:55 Electronically signed by Ward Le MD in [place] 02/12/2020 09:55
--- NOTE | 2020-02-12 09:18 | XR_ITS ---
PROCEDURE: XR PELVIS 1-2V CLINICAL INDICATION: fall Posttraumatic pain, trauma protocol COMPARISON: XR HIP LT 2-3V W/PELVIS from 01/12/2020 TECHNIQUE: XR Pelvis AP View FINDINGS: No fracture or dislocation is evident. No significant degenerative change. No lytic or blastic change. IMPRESSION: No acute findings. Dictated by: Ward Le MD 02/12/2020 14:23 Electronically signed by Ward Le MD in [place] 02/12/2020 14:23
--- NOTE | 2020-02-12 09:18 | XR_ITS ---
PROCEDURE: XR CHEST AP CLINICAL HISTORY: fall Trauma protocol, fall with injury and COMPARISON: XR CHEST AP from 06/25/2019 XR CHEST PORTABLE from 09/05/2019 XR CHEST PORTABLE from 10/09/2019 CT CHEST WO CON from 01/11/2020 FINDINGS: The cardiomediastinal silhouette and pulmonary vascularity are within normal limits. Chronic changes are present in the left lower lobe. There are areas of increased density of the rib ends of the right 3rd and 5th rib and the left 4th 5th and 6th ribs which consistent with healing fractures. No acute bony abnormalities. IMPRESSION: No acute findings. Dictated by: Ward Le MD 02/12/2020 14:25 Electronically signed by Ward Le MD in [place] 02/12/2020 14:25
[2020-02-12 09:35] LABS: Basophils # 0.1 K/mm3 (0-0.2); Basophils % 0.8 % (0.1-2.0); Eosinophils # 0.2 K/mm3 (0.0-0.4); Eosinophils % 3.2 % (0.1-12.0); Hematocrit 31.2 % (37.0-47.0); Hemoglobin 9.6 g/dL (12.2-16.2); Lymphocytes # 2.3 K/mm3 (0.7-4.5); Mean Corpuscular HGB Conc 30.7 g/dL (31.8-35.4); Mean Corpuscular Volume 84.7 fl (81-99); Monocytes # 0.4 K/mm3 (0.1-1.0); Monocytes % 5.5 % (1.7-9.3); Neutrophils # 3.6 K/mm3 (1.8-7.8); Neutrophils % 55.6 % (37.0-80.0); Platelet Count 305 K/mm3 (142-424); Red Blood Count 3.68 M/mm3 (4.20-5.40); Red Cell Distribution Width 18.8 % (11.5-17.5); White Blood Count 6.5 K/mm3 (4.8-10.8)
[2020-02-12 09:44] LABS: Chloride 97 mmol/L (98-107); Sodium 132 mmol/L (136-145)
--- NOTE | 2020-02-12 09:45 | XR_ITS ---
PROCEDURE: XR FEMUR RT 2V CLINICAL INDICATION: fall Posttraumatic pain COMPARISON: No exams were available for comparison FINDINGS: No fracture or dislocation. No lytic or blastic change. There is normal mineralization. The joint spaces are well-preserved. No significant degenerative/arthritic changes. No erosive changes evident. Other findings:None. IMPRESSION: No acute findings. Dictated by: Ward Le MD 02/12/2020 13:53 Electronically signed by Ward Le MD in [place] 02/12/2020 13:53
[2020-02-12 09:47] LABS: Blood Urea Nitrogen 10 mg/dl (7-17); Calcium 7.7 mg/dl (8.4-10.2); Carbon Dioxide 27 mmol/L (22.0-30.0); Creatinine Clearance Estimated 132 mL/min (50-200); Estimated Glomerular Filt Rate 128 ml/min (>60); GFR (African American) 155 ML/MIN (>60)
[2020-02-12 09:50] LABS: Glucose 497 mg/dl (74-100)
--- NOTE | 2020-02-12 10:55 | PC.NURSE ---
spoke with Dr Ortega
--- NOTE | 2020-02-12 11:07 | PC.NURSE ---
Calling Dr. Canales
--- NOTE | 2020-02-12 11:20 | PC.NURSE ---
calling care management
--- NOTE | 2020-02-12 14:24 | PC.NURSE ---
Pt was a new admit from the ER this shift. Pt states that she was brought to the hospital via EMS for an unwitnessed fall. Pt is admitted for a RT tib/fib FX and a LT ankle FX. Orthopedic surgery consult is ordered and Dr. De La Rosa is aware. Knee immobilizer is in place to the RLE and elevated on a pillow. Orthoglass splint is in place on the LT ankle and elevated with a pillow. Pt uses the bedpan to void clear, yellow urine. No BM this shift. Pt is pleasant/cooperative and A&O X4. 20 G peripheral IV is in place to the RT AC with NS infusing @ 50 ML/HR. Pt has complained of pain X1 thus far and received Morphine per MAR with favorable results. No complaints of SOA. Lungs CTA. VSS. Call light within reach. Will continue to monitor.
[2020-02-12 17:01] LABS: POC Glucose,Bedside 179 (70-110)
[2020-02-12 17:30] LABS: INR 1.03 (0.9-1.1); Prothrombin Time 10.6 seconds (9.4-11.8)
--- NOTE | 2020-02-12 17:38 | HMH.HP ---
*Admission Date: 02/12/20 *Chief complaint: Fall with multi-joint pain *History of present illness: 54-year-old female with coronary artery disease, uncontrolled diabetes, COPD and recent hospitalization at this facility for left leg DVT, C. difficile diarrhea, UTI presented to the emergency department after a fall at home. Patient states she was walking through her home using her walker when her left ankle gave out on her resulting in a fall directly onto the right knee. Patient had immediate onset of pain in the right knee with less significant pain in the left ankle. She was unable to ambulate further. Patient was brought to the emergency department. In the ER patient was found to have a proximal tib-fib fracture as well as a left ankle fracture. She has been admitted for orthopedic consultation. Orthopedic service plans on intramedullary nail of the right tibia tomorrow afternoon. Patient denies syncope contributing to her fall. Patient denies recent chest pain, shortness of breath or palpitations. Patient underwent cardiac evaluation by local cardiology services in May 2019 with a Lexiscan stress test revealing no ischemia and an echocardiogram revealing a normal ejection fraction. [facility] History I have reviewed the patient's past medical history: Yes Medical History: Reports:: Cancer, Coronary Artery Disease, Deep Vein Thrombosis, Depression, Diabetes Mellitus Type 2, Gastroesophageal Reflux Disease(GERD), Hyperlipidemia, Hypertension, Myocardial Infarction Denies:: Diabetes Mellitus Type 1, MRSA *Have you ever received a pneumonia vaccine?: Yes *Have you received a flu vaccine this season?: Yes Other Medical History: Reports: Arthritis Other Surgeries: Yes: Cardiac Catheterization, Cholecystectomy, Coronary Stent Amputation: No Fractures: Yes Comment: Cervical spine surgery 2019 - *Social History Educational Level: Completed GED/General Educational Development Smoking Status: Current every day smoker Tobacco Type: cigarettes # Packs/Day (cigarettes): 1 #Yrs smoked (if former smoker): 35 Alcohol Intake: never Substance Use Type: denies use *Occupational Status:: disabled Housing: house Household Members: family *Travel in the last 8 weeks: None - Psychiatric History Pschychiatric History:: Reports:: Depression Family Hx:: Cancer, Coronary Artery Disease, Diabetes, Heart Attack, Hyperlipidemia, Hypertension, Stroke Review of Systems - Review of Systems Review of systems:: pertinent systems reviewed and negative unless documented below - *Neurologic Denies headache(s), Denies numbness, Denies weakness Meds Home Medications Medication Instructions Recorded Confirmed Type alendronate 70 mg tablet 70 mg PO WEEKLY 04/25/19 02/12/20 History aspirin 81 mg tablet,delayed 81 mg PO DAILY 04/25/19 02/12/20 History release atorvastatin 80 mg tablet 80 mg PO HS 04/25/19 02/12/20 History budesonide-formoterol HFA 160 2 puff INHALATION BID 04/25/19 02/12/20 History mcg-4.5 mcg/actuation aerosol inhaler cetirizine 10 mg tablet 10 mg PO DAILY 04/25/19 02/12/20 History duloxetine 60 mg capsule,delayed 60 mg PO DAILY 04/25/19 02/12/20 History release ranolazine 1,000 mg 1,000 mg PO BID 04/25/19 02/12/20 History tablet,extended release,12 hr ticagrelor 90 mg tablet 90 mg PO BID 04/25/19 02/12/20 History tizanidine 4 mg capsule 4 mg PO Q8HP PRN 04/25/19 02/12/20 History nitroglycerin 0.2 mg/hr 1 patch TRANSDERMAL DAILY #30 each 08/21/19 02/12/20 Rx transdermal 24 hour patch Ondansetron [Zofran 4mg ODT] 4 mg PO Q8HP PRN #20 tab.rapdis 10/09/19 02/12/20 Rx Calcium Carbonate/Vitamin D3 1 each PO BID 01/12/20 02/12/20 History [Calcium 600 + Vit D Tablet] Insulin Glargine,Hum.rec.anlog 8 unit SQ PM 01/12/20 02/12/20 History [Toujeo Max Solostar] Montelukast Sodium [Singulair 10mg 10 mg PO HS 01/12/20 02/12/20 History tablet] Omeprazole [Omeprazole 40mg 40 mg PO DAILY 01/12/20 02/12/20 History C
[2020-02-12 19:16] LABS: Coronavirus 19 IgG Antibody Negative (Negative); Coronavirus 19 IgM Antibody Negative (Negative)
[2020-02-12 21:29] LABS: POC Glucose,Bedside 236 (70-110)
--- NOTE | 2020-02-12 21:51 | HMH.ORTHOCON ---
*Admission Date: 02/12/20 *Reason for consult:: L ankle fx + R tibia fx *History of present illness: 54yo F admitted through the ED this afternoon after a fall at home earlier today. She was walking through her home using her walker when she felt her L ankle give out and she fell to the ground onto the R knee. She was unable to ambulate after that and was taken via EMS to [facility] for evaluation. X-rays revealed a non-displaced bimalleolar fracture of the L ankle + a R proximal tibial fracture. She has uncontrolled diabetes with peripheral neuropathy at baseline. She additionally has a history of COPD, HTN, HL, GERD, CAD s/p stenting with h/o MS, FELIZ. She was recently hospitalized for UTI, C. diff diarrhea and LLE DVT. The DVT is being treated with Eliquis, which she has not taken yet today. She reports pain in the R proimxal tibia + L ankle. Denies headache, dizziness, chest pain, or shortness of breath prior to the fall. PCP is Dr. Canales. She reports a history of osteoporosis, for which she takes alendronate; she does not remember her last DEXA but believes it was several years ago. Review of Systems - Review of Systems Review of systems:: pertinent systems reviewed and negative unless documented below - *Neurologic Denies headache(s), Denies numbness, Denies weakness [facility] History I have reviewed the patient's past medical history: Yes Medical History: Reports:: Cancer, Coronary Artery Disease, Deep Vein Thrombosis, Depression, Diabetes Mellitus Type 2, Gastroesophageal Reflux Disease(GERD), Hyperlipidemia, Hypertension, Myocardial Infarction Denies:: Diabetes Mellitus Type 1, MRSA *Have you ever received a pneumonia vaccine?: Yes *Have you received a flu vaccine this season?: Yes Other Medical History: Reports: Arthritis Other Surgeries: Yes: Cardiac Catheterization, Cholecystectomy, Coronary Stent Amputation: No Fractures: Yes - *Social History Educational Level: Completed GED/General Educational Development Smoking Status: Current every day smoker Tobacco Type: cigarettes # Packs/Day (cigarettes): 1 #Yrs smoked (if former smoker): 35 Alcohol Intake: never Substance Use Type: denies use *Occupational Status:: disabled Housing: house Household Members: family *Travel in the last 8 weeks: None - Psychiatric History Pschychiatric History:: Reports:: Depression Family Hx:: Cancer, Coronary Artery Disease, Diabetes, Heart Attack, Hyperlipidemia, Hypertension, Stroke Meds Home Medications Medication Instructions Recorded Confirmed Type alendronate 70 mg tablet 70 mg PO WEEKLY 04/25/19 02/12/20 History aspirin 81 mg tablet,delayed 81 mg PO DAILY 04/25/19 02/12/20 History release atorvastatin 80 mg tablet 80 mg PO HS 04/25/19 02/12/20 History budesonide-formoterol HFA 160 2 puff INHALATION BID 04/25/19 02/12/20 History mcg-4.5 mcg/actuation aerosol inhaler cetirizine 10 mg tablet 10 mg PO DAILY 04/25/19 02/12/20 History duloxetine 60 mg capsule,delayed 60 mg PO DAILY 04/25/19 02/12/20 History release ranolazine 1,000 mg 1,000 mg PO BID 04/25/19 02/12/20 History tablet,extended release,12 hr ticagrelor 90 mg tablet 90 mg PO BID 04/25/19 02/12/20 History tizanidine 4 mg capsule 4 mg PO Q8HP PRN 04/25/19 02/12/20 History nitroglycerin 0.2 mg/hr 1 patch TRANSDERMAL DAILY #30 each 08/21/19 02/12/20 Rx transdermal 24 hour patch Ondansetron [Zofran 4mg ODT] 4 mg PO Q8HP PRN #20 tab.rapdis 10/09/19 02/12/20 Rx Calcium Carbonate/Vitamin D3 1 each PO BID 01/12/20 02/12/20 History [Calcium 600 + Vit D Tablet] Insulin Glargine,Hum.rec.anlog 8 unit SQ PM 01/12/20 02/12/20 History [Toujeo Max Solostar] Montelukast Sodium [Singulair 10mg 10 mg PO HS 01/12/20 02/12/20 History tablet] Omeprazole [Omeprazole 40mg 40 mg PO DAILY 01/12/20 02/12/20 History Capsule] Pregabalin [Lyrica 200mg Cap] 200 mg PO BID 01/12/20 02/12/20 History Promethazine HCl [Phenergan 12.5mg 12.5 mg PO Q6H PRN 01/12/20 02/12/20 Hist
[2020-02-13] VITALS (32 sets, daily range): BP systolic 92–134; BP diastolic 52–78; PULSE 16–107; RESP 14–20; TEMP 36.6–43; O2SAT 90–100; BMI 29.2; BMI 29.3
--- NOTE | 2020-02-13 | XR_ITS ---
PROCEDURE: XR TIBIA FIBULA RT 2V CLINICAL INDICATION: FX ORIF follow-up COMPARISON: XR TIBIA FIBULA RT 2V from 02/12/2020 FINDINGS: Fluoroscopy time: 4 minutes. Images submitted during the ORIF show that a intramedullary rajeev has been placed which appears to be in good position on the AP images stabilizing the proximal tibial fracture which appears to be in good alignment. IMPRESSION: Good alignment status post ORIF Dictated by: Ward Le MD 02/13/2020 16:24 Electronically signed by Ward Le MD in [place] 02/13/2020 16:24
--- NOTE | 2020-02-13 03:47 | PC.NURSE ---
PT. MAIN C/O IS RLE PAIN; TX WITH MORPHINE PER MAR WITH MILD EFFECTIVENESS NOTED. PT. HAS C/O 2 EPISODES OF NAUSEA, NO VOMITING THIS SHIFT. PT. HAS NOT C/O SOA, OR DIZZINESS THIS SHIFT. BLE ELEVATED ON PILLOWS. T/R PER PT. REQUEST.
[2020-02-13 06:07] LABS: POC Glucose,Bedside 228 (70-110)
--- NOTE | 2020-02-13 07:06 | HMH.ACPN2 ---
Internal Medicine - PN: Subj *Date: 02/13/20 *Time: 07:06 Interval history: Patient's only complaint this morning is pain in her right leg. Patient has been medicated with morphine with some relief but also nausea. She denies chest pain or shortness of breath overnight. Exam Vital signs and Labs for Last 24 Hours: Temp Pulse Resp BP Pulse Ox 99.2 F 107 H 20 102/59 L 94 L 02/13/20 04:44 02/13/20 04:44 02/13/20 04:44 02/13/20 04:44 02/13/20 04:44 Laboratory Results - last 24 hr 02/12/20 09:26: WBC 6.5, RBC 3.68 L, Hgb 9.6 L, Hct 31.2 L, MCV 84.7, MCH 26.0 L, MCHC 30.7 L, RDW 18.8 H, Plt Count 305, MPV 9.0, Neut % (Auto) 55.6, Lymph % (Auto) 35.0, Beckham % (Auto) 5.5, Eos % (Auto) 3.2, Baso % (Auto) 0.8, Neut # (Auto) 3.6, Lymph # (Auto) 2.3, Beckham # (Auto) 0.4, Eos # (Auto) 0.2, Baso # (Auto) 0.1 02/12/20 09:26: Sodium 132 L, Potassium 4.0, Chloride 97 L, Carbon Dioxide 27, Anion Gap 12.0, BUN 10, Creatinine 0.50 L, Estimated Creat Clear 132, Estimated GFR 128, Est GFR ( Amer) 155, Glucose 497 H*, Calcium 7.7 L 02/12/20 16:38: POC Glucose 179 H 02/12/20 17:05: PT 10.6, INR 1.03, APTT 22.0 L 02/12/20 17:08: SARS-CoV-2 IgG Ab (Rapid) Negative, SARS-CoV-2 IgM Ab (Rapid) Negative 02/12/20 18:30: Blood Type A Positive, Antibody Screen Negative, Crossmatch (AHG) See Detail 02/12/20 19:42: POC Glucose 236 H 02/13/20 05:59: POC Glucose 228 H I & O for Last 24 hours: Intake & Output 02/10/20 02/11/20 02/12/20 02/13/20 11:59 11:59 11:59 11:59 Intake Total 1757 / 1757 Output Total 700 / 700 Balance 1057 / 1057 Weight 138 lb 5 oz 145 lb 6 oz - Constitutional no acute distress - *Routine HEENT Exam Head: Present: normocephalic - *Routine Neck Exam Present: supple - *Routine Respiratory Exam Present: CTA bilaterally - *Routine Cardiovascular Exam Present: tachycardia (Mild) - *Routine Abdominal Exam Present: soft - *Routine Extremities Exam Comments: Splinted right lower extremity. Left lower leg remains in a cam walker Assessment and Plan (1) Fracture of right tibia and fibula Current visit: Yes Status: Acute Qualifiers: Encounter type: initial encounter Fracture type: closed Qualified Code(s): S82.201A - Unspecified fracture of shaft of right tibia, initial encounter for closed fracture; S82.401A - Unspecified fracture of shaft of right fibula, initial encounter for closed fracture Category: Medical Code(s): S82.201A - Unspecified fracture of shaft of right tibia, initial encounter for closed fracture; S82.401A - Unspecified fracture of shaft of right fibula, initial encounter for closed fracture (2) Bimalleolar fracture of left ankle Current visit: Yes Status: Acute Qualifiers: Encounter type: initial encounter Fracture type: closed Qualified Code(s): S82.842A - Displaced bimalleolar fracture of left lower leg, initial encounter for closed fracture Category: Medical Code(s): S82.842A - Displaced bimalleolar fracture of left lower leg, initial encounter for closed fracture (3) COPD (chronic obstructive pulmonary disease) Current visit: No Status: Chronic Qualifiers: COPD type: COPD with acute exacerbation Qualified Code(s): J44.1 - Chronic obstructive pulmonary disease with (acute) exacerbation Category: Medical Code(s): J44.9 - Chronic obstructive pulmonary disease, unspecified (4) Deep vein thrombosis (DVT) of left lower extremity Current visit: No Status: Chronic Qualifiers: Affected thrombotic vein of extremity: femoral Category: Medical Code(s): I82.402 - Acute embolism and thrombosis of unspecified deep veins of left lower extremity (5) Fall Current visit: No Status: Acute Qualifiers: Encounter type: initial encounter Qualified Code(s): W19.XXXA - Unspecified fall, initial encounter Category: Medical Code(s): W19.XXXA - Unspecified fall, initial encounter (6) HHD (hypertensive
[2020-02-13 07:32] LABS: Basophils % 0.4 % (0.1-2.0); Eosinophils # 0.3 K/mm3 (0.0-0.4); Eosinophils % 3.7 % (0.1-12.0); Hematocrit 29.6 % (37.0-47.0); Hemoglobin 8.9 g/dL (12.2-16.2); Lymphocytes % 44.7 % (10-50); Mean Corpuscular HGB Conc 30.1 g/dL (31.8-35.4); Mean Corpuscular Hemoglobin 25.4 pg (27.0-31.2); Mean Corpuscular Volume 84.3 fl (81-99); Mean Platelet Volume 8.5 fl (7.4-10.4); Monocytes # 0.4 K/mm3 (0.1-1.0); Monocytes % 6.1 % (1.7-9.3); Neutrophils # 3.1 K/mm3 (1.8-7.8); Neutrophils % 45.1 % (37.0-80.0); Platelet Count 271 K/mm3 (142-424); Red Blood Count 3.52 M/mm3 (4.20-5.40); Red Cell Distribution Width 18.8 % (11.5-17.5); White Blood Count 6.8 K/mm3 (4.8-10.8)
[2020-02-13 07:34] LABS: Chloride 105 mmol/L (98-107); Potassium 3.3 mmoL/L (3.5-5.1); Sodium 136 mmol/L (136-145)
[2020-02-13 07:37] LABS: Anion Gap 5.3 mEq/L (5-15); Blood Urea Nitrogen 7 mg/dl (7-17); Calcium 7.1 mg/dl (8.4-10.2); Carbon Dioxide 29 mmol/L (22.0-30.0); Creatinine Clearance Estimated 165 mL/min (50-200); Estimated Glomerular Filt Rate 166 ml/min (>60); GFR (African American) 201 ML/MIN (>60); Glucose 203 mg/dl (74-100)
--- NOTE | 2020-02-13 14:22 | P.PN_ITS ---
[facility] Anesthesia Checklist - Patient Identification Patient Identification: Arm Band - Structural Data Admitted From: Home Planned Operative Procedure/s: Intramedullary nailing right tibia Consent for Planned Operative Procedure(s) Verified: Yes Verified Documents: Surgical Consent, History and Physical - NPO Status Verified Time NPO: 00:00 - Additional verifications Anesthesia Reactions: No - Airway Assessment C-Spine Mobility Assessed: Yes (mp2) TMJ Mobility Assessed: Yes Dentition: Good Dentition - Neurological Assessment Level of Consciousness: Awake, Alert - Anesthesia Plan Anesthesia Risk discussed: Yes Anesthesia Plan: Verified ASA Class: III Anesthesia Type: General [facility] History I have reviewed the patient's past medical history: Yes Medical History: Reports:: Cancer, Coronary Artery Disease, Deep Vein Thr ombosis, Depression, Diabetes Mellitus Type 2, Gastroesophageal Reflux Disease(GERD), Hyperlipidemia, Hypertension, Myocardial Infarction Denies:: Diabetes Mellitus Type 1, MRSA *Have you ever received a pneumonia vaccine?: Yes *Have you received a flu vaccine this season?: Yes Other Medical History: Reports: Arthritis Anesthesia experience/problems:: nac Other Surgeries: Yes: Cardiac Catheterization, Cholecystectomy, Coronary Stent Amputation: No Fractures: Yes - *Social History Educational Level: Completed GED/General Educational Development Smoking Status: Current every day smoker Tobacco Type: cigarettes # Packs/Day (cigarettes): 1 #Yrs smoked (if former smoker): 35 Alcohol Intake: never Substance Use Type: denies use *Occupational Status:: disabled Housing: house Household Members: family *Travel in the last 8 weeks: None - Psychiatric History Pschychiatric History:: Reports:: Depression Family Hx:: Cancer, Coronary Artery Disease, Diabetes, Heart Attack, Hyperlipidemia, Hypertension, Stroke
--- NOTE | 2020-02-13 15:39 | P.CONPHA_ITS ---
[facility] Pharmacy VTE Monitoring - Patient Demographics Admission date: 02/12/20 Report Date: 02/13/20 Time: 15:39 Allergies/Adverse Reactions: Patient Allergies Penicillins Allergy (Verified 06/25/19 06:08) Unknown allergy reaction Sulfa (Sulfonamide Antibiotics) Allergy (Verified 06/25/19 06:08) Unknown allergy reaction Height: 1.5 m Weight: 66 kg Patient Problems: Current Active Problems Fracture of right tibia and fibula (Acute) Bimalleolar fracture of left ankle (Acute) Hyperglycemia (Acute) Diabetes mellitus with hyperglycemia (Chronic) - VTE Risk Labs: VTE Related Lab Results Hgb 8.9 g/dL (12.2-16.2) L 02/13/20 07:18 Hct 29.6 % (37.0-47.0) L 02/13/20 07:18 Plt Count 271 K/mm3 (142-424) 02/13/20 07:18 PT 10.6 seconds (9.4-11.8) 02/12/20 17:05 INR 1.03 (0.9-1.1) 02/12/20 17:05 APTT 22.0 seconds (23.6-34.0) L 02/12/20 17:05 BUN 7 mg/dl (7-17) D 02/13/20 07:18 Creatinine 0.40 mg/dl (0.52-1.04) L 02/13/20 07:18 Estimated Creat Clear 165 mL/min (50-200) 02/13/20 07:18 Was VTE Risk Assessment Performed: Yes VTE Score: 8 VTE Risk Level: Moderate Risk - Prophylaxis VTE Prophylaxis Ordered?: Yes Types of VTE Prophylaxis: IPCS Thigh High Location of Applied Device: Bilateral Lower Extremeties - VTE Diagnosis Confirmed Treatment or plan recommended: Continue Current Treatment
--- NOTE | 2020-02-13 15:49 | HMH.PHAINT ---
MEDICATION RECONCILIATION COMPLETED ON PATIENT USING EXTERNAL FILL HISTORY FROM PHARMACY AND RX BOTTLES. -DESHAWN MOYER, HSARIFD
--- NOTE | 2020-02-13 16:20 | HMH.ANESI ---
[facility] Anesthesia Record Part I Intake, IV Amount: 1,500 Estimated blood loss (mL): 100 Urine output (mL): 0 Blood Pressure: 116/65 SaO2: 96 Pulse Rate: 97 Respiratory Rate: 16 Temperature: 98.3 F Patient is:: Drowsy, Stable Stable to PACU at:: 16:15
--- NOTE | 2020-02-13 16:25 | XR_ITS ---
PROCEDURE: XR TIBIA FIBULA RT 2V CLINICAL INDICATION: s/p IMN R tibia Follow-up ORIF COMPARISON: XR ANKLE LT MIN 3V from 02/12/2020 XR TIBIA FIBULA RT 2V from 02/12/2020 XR TIBIA FIBULA RT 2V from 02/13/2020 FINDINGS: Status post ORIF proximal tib fib fracture. I am rajeev is present with good alignment of the proximal fracture fragments. There is an oblique fracture of the distal fibula not significantly displaced IMPRESSION: Ms. Status post ORIF proximal tib fib fracture. Nondisplaced distal fibular fracture. This fracture was not visible on the previous tib fib images. Dictated by: Ward Le MD 02/16/2020 13:09 Electronically signed by Ward Le MD in [place] 02/16/2020 13:09
--- NOTE | 2020-02-13 16:33 | HMH.OPNOTE ---
Date of procedure: 02/13/20 Pre-op Diagnosis:: R tibia fracture Post-op Diagnosis:: R tibia fracture Procedure performed:: intramedullary nail R tibia Surgeon:: Ermelinda De La Rosa MD Iron Launder Operator(s):: Mirta Grigsby [employer] MOTEL MANAGER:: Ernie Ryan Anesthesia: GETA, local (30cc 0.5% marcaine w/o epi; infiltrated around incisions) Estimated blood loss (mL): 100 Clinical Note:: 54yo F admitted through the ED yesterday after a fall at home earlier in the day. She was walking through her home using her walker when she felt her L ankle give out and she fell to the ground onto the R knee. She was unable to ambulate after that and was taken via EMS to [facility] for evaluation. X-rays revealed a non-displaced bimalleolar fracture of the L ankle + a R proximal tibial fracture. She has uncontrolled diabetes with peripheral neuropathy at baseline. She additionally has a history of COPD, HTN, HL, GERD, CAD s/p stenting with h/o AZ, FELIZ. She was recently hospitalized for UTI, C. diff diarrhea and LLE DVT. The DVT is being treated with Eliquis. She reported pain in the R proimxal tibia + L ankle. Denied headache, dizziness, chest pain, or shortness of breath prior to the fall. PCP is Dr. Canales. She reports a history of osteoporosis, for which she takes alendronate; she does not remember her last DEXA but believes it was several years ago. The left ankle will be treated non-operatively in a CAM boot. I discussed treatment options with the patient regarding her R tibia fracture and I recommend surgical fixation. I discussed the possibility of non-operative treatment in a cast, but this particular fracture pattern does not appear amenable to this. The fracture is already in valgus/recurvatum and is not likely to obtain/maintain adequate alignment in a cast. Furthermore the potential for skin breakdown and ulceration/infection is high given her uncontrolled DM and peripheral neuropathy. My recommendation is for intramedullary nailing of the tibia. I discussed the risks of surgery with the patient, including bleeding, infection, non-union, malunion, hardware failure, persistent pain/disability despite surgical fixation, need for further surgery in the future, and risks of anesthesia. The patient vocalized understanding and provided informed consent for the procedure. Operative findings:: IMPLANTS: Pete T2 Alpha Tibial Nailing System 10 x 300mm nail proximal interlocking screws: 2 oblique + 1 transverse all 5.0mm diameter (lengths: 60, 60, 40mm) distal interlocking screws: 2 transverse, 5.0mm diameter (lengths 47.5, 42.5mm) Operative note:: The patient was identified in preoperative holding and the right lower extremity marked by myself. Consent was verified with the patient and all questions answered. She was then taken to the OR where she was transferred to the operative table and 900mg clindamycin infused intravenously. General anesthetic was then administered. A non-sterile tourniquet was placed on the upper right thigh and the right leg was prepped and draped in the usual sterile fashion. Timeout was performed, identifying the correct patient, correct procedure and correct site. The procedure was begun by extending the right lower extremity on a long bone foam (radiolucent bolster, long and rectangular) to aid with suprapatellar nailing and to obtain adequate lateral XR out of view of the contralateral leg. Fracture was confirmed in the proximal 1/3 tibial shaft on fluoroscopy. A stack of folded towels was placed under the ankle to bring the distal fragment into extension and correct the recurvatum at the fracture site. A longitudinal incision was made over the anterior distal thigh, approximately 2cm proximal to the superior pole of the patella, measuring 3cm in length. Skin was incised with a 10 blade and subcutaneous tissue bluntly spread with metzenbaum scissors until the quadriceps tendon was encountered. The quadriceps tendon was split longitudinally
--- NOTE | 2020-02-13 16:33 | HMH.ORTHPN ---
Subjective Date: 02/13/20 Time: 15:00 Principal diagnosis: L ankle fx; R tibia fx s/p IMN Interval history: The patient underwent IMN R tibia this afternoon without complication. Resting comfortably now in PACU, vitals stable. O2 sat 94% on 3L NC. General anesthesia + 30cc marcaine 0.5% at incision site 1500cc crystalloid UOP not recorded; saturated diaper EBL 100cc PN: Obj Ex Vital signs: Temp Pulse Resp BP Pulse Ox 98.3 F 97 H 16 116/65 100 02/13/20 16:21 02/13/20 16:21 02/13/20 16:21 02/13/20 16:21 02/13/20 13:19 - Constitutional no acute distress - Routine HEENT Exam Head: Present: normocephalic Eye: Present: EOMI ENT: Present: mucous membranes moist - Routine Neck Exam Present: supple - Routine Respiratory Exam Absent: respiratory distress, wheezes - Routine Cardiovascular Exam Present: RRR - Routine Abdominal Exam Present: soft. Absent: distended - Routine Extremities Exam Comments: RLE splint/dressings c/d/i, no strikethrough patient is droswy but arousable and follows commands palpable pedal pulses RLE, foot warm/pink +DF/PF/EHL RLE SILT distally RLE, at basline L ankle in CAM boot - Routine Skin Exam Present: warm - Routine Neurological Exam Present: alert, oriented X3, moving all extremities, normal tone, vision grossly intact, hearing grossly intact, normal speech. Absent: sensory deficit, motor deficit, altered mental status Progress Note: A&P (1) Fracture of right tibia and fibula Status: Acute Current Visit: Yes (2) Bimalleolar fracture of left ankle Status: Acute Current Visit: Yes (3) COPD (chronic obstructive pulmonary disease) Status: Chronic Current Visit: No (4) Deep vein thrombosis (DVT) of left lower extremity Status: Chronic Current Visit: No (5) Fall Status: Acute Current Visit: No (6) HHD (hypertensive heart disease) Status: Chronic Current Visit: No (7) FELIZ (obstructive sleep apnea) Status: Chronic Current Visit: No (8) CAD (coronary artery disease) Status: Chronic Current Visit: No (9) S/P drug eluting coronary stent placement Status: Chronic Current Visit: No (10) Smoker Status: Chronic Current Visit: No (11) Diabetes mellitus with hyperglycemia Status: Chronic Current Visit: Yes Assessment and Plan for All Diagnoses:: 54yo F with non-displaced bimalleolar fracture L ankle + R tibia fracture POD 0 s/p IMN R tibia -- CAM boot L ankle, non-op; WBAT -- keep LLE elevated, ice as needed -- do not remove splint RLE, keep elevated, may ice as needed. NWB RLE. -- PT to eval -- clear liquid diet; advance as tolerated to diabetic diet -- lovenox 40mg SQ x1 tonight; restart Eliquis tomorrow -- clindamycin 900mg Q8hr x2 doses for post-op prophy -- encourage incentive spirometry 10x/hr while awake -- pain control; encourage oral meds with IV PRN for breakthrough -- dispo planning: anticipate SNF referral
[2020-02-13 16:43] LABS: POC Glucose,Bedside 221 (70-110)
[2020-02-13 16:55] LABS: POC Glucose,Bedside 162 (70-110)
--- NOTE | 2020-02-13 16:56 | SUR.PHASEI ---
Bedside report given to Patricia Taylor RN
[2020-02-13 17:55] LABS: Hematocrit 33.4 % (37.0-47.0)
[2020-02-13 17:56] LABS: Hemoglobin 10.4 g/dL (12.2-16.2)
--- NOTE | 2020-02-13 18:47 | HMH.ANESII ---
[facility] Anesthesia Record Part II Discharge Time: 16:55 Destination: Medical Surgical Department PACU nurse assessment reviewed?: Yes Patient Condition:: Good Anesthesia Complications:: None Swallowing reflex intact?: Yes Cyanosis?: No Blood Pressure: 126/78 Pulse Rate: 88 Temperature: 98.3 F Mental Status: Alert & Oriented Pain level:: 0 Nausea and/or vomitting:: None Intake, IV Amount: 0
--- NOTE | 2020-02-13 19:11 | PC.NURSE ---
report given to mio
--- NOTE | 2020-02-13 19:18 | PC.NURSE ---
PT IS RESTING IN BED. PT ARRIVED BACK TO THE FLOOR FROM SURGERY AT 1700. WHILE PT WAS IN SURGERY HOME MEDICATIONS WERE SENT TO PHARMACY TO BE PACKAGED. JADE GONZALEZ STATED IN PT'S ZANAFLEX BOTTLE SHE HAD LASIX AND METOPROLOL MIXED IN WITH THE ZANAFLEX. PT'S SINGULAIR BOTTLE HAD LASIX, ZANAFLEX AND METOPROLOL ALL MIXED TOGETHER. JADE STATED HE SORTED THE MEDS AND PUT THEM IN THE CORRECT BOTTLES. PT'S BLOOD PRESSURE HAS BEEN LOW OFF AND ON T/O THIS SHIFT. PT STATED SHE HAS NOT BEEN TAKING ANY OF HER BLOOD PRESSURE MEDICATION AT HOME FOR SOMETIME NOW. PT STATED WHEN SHE WAS AT [facility] SHE HAD A LOW BP ABOUT EVERY MORNING SO SHE ASSUMED STAFF WAS NOT GIVING HER THE MEDS THERE SO SHE JUST DECIDED NOT TO TAKE THEM WHEN SHE WENT HOME. METOPROLOL WAS HELD THIS MORNING. PT HAD 1 UNIT OF PRBC'S THAT WAS COMPLETED IN SURGERY. NS IVF BOLUS ORDERED BEFORE SURGERY. PT TOLERATED 1 UNIT OF PRBC'S AND BOLUS WELL. BP IMPROVED. SINCE ARRIVING BACK TO THE FLOOR PT HAS BEEN VERY DROWSY. O2 SATURATION 92-95% ON 3 L NC. PT HAS HAD A FEW 90 SYSTOLIC BP'S. RLE ELEVATED. PT HAS HAD A FEW SIPS OF CRANBERRY JUICE AND LUIS MIST. WILL CONTINUE TO MONITOR
[2020-02-13 20:25] LABS: POC Glucose,Bedside 356 (70-110)
[2020-02-14] VITALS (11 sets, daily range): BP systolic 78–116; BP diastolic 44–69; PULSE 78–97; RESP 16–20; TEMP 36.6–36.8; O2SAT 91–99; BMI 32.5
--- NOTE | 2020-02-14 03:58 | PC.NURSE ---
ALERT AND ORIENTED X4. PT HAS RESTED WELL MOST OF SHIFT. PAIN MEDS ADMINISTERED PER NOV. BLE ELEVATED AND ICED. PT HAS BEEN NON-COMPLIANT WITH IS. EDUCATION AND ENCOURAGEMENT PROVIDED. PT HAS TOLERATED CLEAR LIQUID DIET, WILL ADVANCE TO FULL LIQUID FOR BREAKFAST. VSS. NO DISTRESS NOTED. SAFETY MEASURES IN PLACE AND WILL CONTINUE TO MONITOR
[2020-02-14 05:54] LABS: POC Glucose,Bedside 300 (70-110)
[2020-02-14 06:35] LABS: Chloride 108 mmol/L (98-107); Potassium 4.8 mmoL/L (3.5-5.1); Sodium 135 mmol/L (136-145)
[2020-02-14 06:38] LABS: Anion Gap 8.8 mEq/L (5-15); Blood Urea Nitrogen 9 mg/dl (7-17); Carbon Dioxide 23 mmol/L (22.0-30.0); Creatinine Clearance Estimated 183 mL/min (50-200); Estimated Glomerular Filt Rate 166 ml/min (>60); GFR (African American) 201 ML/MIN (>60); Glucose 254 mg/dl (74-100)
[2020-02-14 06:41] LABS: Calcium 6.6 mg/dl (8.4-10.2)
[2020-02-14 06:46] LABS: Basophils % 0.2 % (0.1-2.0); Lymphocytes # 1.4 K/mm3 (0.7-4.5); Mean Platelet Volume 9.3 fl (7.4-10.4)
[2020-02-14 06:58] LABS: Eosinophils % 0.6 % (0.1-12.0); Hematocrit 29.5 % (37.0-47.0); Lymphocytes % 18.6 % (10-50); Mean Corpuscular HGB Conc 31.4 g/dL (31.8-35.4); Mean Corpuscular Hemoglobin 26.3 pg (27.0-31.2); Mean Corpuscular Volume 83.8 fl (81-99); Monocytes # 0.4 K/mm3 (0.1-1.0); Monocytes % 5.9 % (1.7-9.3); Neutrophils # 5.5 K/mm3 (1.8-7.8); Neutrophils % 74.8 % (37.0-80.0); Platelet Count 226 K/mm3 (142-424); Red Blood Count 3.52 M/mm3 (4.20-5.40); Red Cell Distribution Width 18.7 % (11.5-17.5); White Blood Count 7.4 K/mm3 (4.8-10.8)
[2020-02-14 06:59] LABS: Hemoglobin 9.2 g/dL (12.2-16.2)
--- NOTE | 2020-02-14 08:09 | HMH.ACPN2 ---
Internal Medicine - PN: Subj *Date: 02/14/20 *Time: 08:09 Interval history: Patient complains of heartburn and nausea this morning with retching prior to entering the room. She reports pain in her right leg is 8 out of 10. She denies chest pain or shortness of breath. She has not been using incentive spirometry as instructed. Exam Vital signs and Labs for Last 24 Hours: Temp Pulse Resp BP Pulse Ox 97.9 F 78 18 116/69 95 02/14/20 07:46 02/14/20 07:46 02/14/20 07:46 02/14/20 07:46 02/14/20 07:46 Laboratory Results - last 24 hr 02/12/20 18:30: Blood Type A Positive, Antibody Screen Negative, Crossmatch (AHG) See Detail 02/13/20 11:51: POC Glucose 162 H 02/13/20 16:35: POC Glucose 221 H 02/13/20 17:48: Hgb 10.4 L D, Hct 33.4 L 02/13/20 20:16: POC Glucose 356 H* 02/14/20 05:46: POC Glucose 300 H 02/14/20 05:55: WBC 7.4, RBC 3.52 L, Hgb 9.2 L D, Hct 29.5 L, MCV 83.8, MCH 26.3 L, MCHC 31.4 L, RDW 18.7 H, Plt Count 226, MPV 9.3, Neut % (Auto) 74.8, Lymph % (Auto) 18.6, Crowley % (Auto) 5.9, Eos % (Auto) 0.6, Baso % (Auto) 0.2, Neut # (Auto) 5.5, Lymph # (Auto) 1.4, Crowley # (Auto) 0.4, Eos # (Auto) 0.0, Baso # (Auto) 0.0 02/14/20 05:55: Sodium 135 L, Potassium 4.8 D, Chloride 108 H, Carbon Dioxide 23 D, Anion Gap 8.8, BUN 9 D, Creatinine 0.40 L, Estimated Creat Clear 183, Estimated GFR 166, Est GFR ( Amer) 201, Glucose 254 H D, Calcium 6.6 L I & O for Last 24 hours: Intake & Output 02/11/20 02/12/20 02/13/20 06/06/20 11:59 11:59 11:59 11:59 Intake Total 1757 / 1757 2650 / 2650 Output Total 700 / 700 Balance 1057 / 1057 2650 / 2650 Weight 138 lb 5 oz 145 lb 6 oz 161 lb 4 oz Narrative: Patient looks exhausted. Lung exam reveals clear lungs with distant sounds. Heart has a regular rate and rhythm. Abdomen is soft and obese. Right lower extremity is splinted, left lower extremity is in a cam walking boot. Assessment and Plan (1) Fracture of right tibia and fibula Current visit: Yes Status: Acute Qualifiers: Encounter type: initial encounter Fracture type: closed Qualified Code(s): S82.201A - Unspecified fracture of shaft of right tibia, initial encounter for closed fracture; S82.401A - Unspecified fracture of shaft of right fibula, initial encounter for closed fracture Category: Medical Code(s): S82.201A - Unspecified fracture of shaft of right tibia, initial encounter for closed fracture; S82.401A - Unspecified fracture of shaft of right fibula, initial encounter for closed fracture (2) Bimalleolar fracture of left ankle Current visit: Yes Status: Acute Qualifiers: Encounter type: initial encounter Fracture type: closed Qualified Code(s): S82.842A - Displaced bimalleolar fracture of left lower leg, initial encounter for closed fracture Category: Medical Code(s): S82.842A - Displaced bimalleolar fracture of left lower leg, initial encounter for closed fracture (3) COPD (chronic obstructive pulmonary disease) Current visit: No Status: Chronic Qualifiers: COPD type: COPD with acute exacerbation Qualified Code(s): J44.1 - Chronic obstructive pulmonary disease with (acute) exacerbation Category: Medical Code(s): J44.9 - Chronic obstructive pulmonary disease, unspecified (4) Deep vein thrombosis (DVT) of left lower extremity Current visit: No Status: Chronic Qualifiers: Affected thrombotic vein of extremity: femoral Category: Medical Code(s): I82.402 - Acute embolism and thrombosis of unspecified deep veins of left lower extremity (5) Fall Current visit: No Status: Acute Qualifiers: Encounter type: initial encounter Qualified Code(s): W19.XXXA - Unspecified fall, initial encounter Category: Medical Code(s): W19.XXXA - Unspecified fall, initial encounter (6) HHD (hypertensive heart disease) Current visit: No Status: Chronic Qualifiers: Heart failure presence: without heart failure Qualified Co
--- NOTE | 2020-02-14 10:44 | HMH.ORTHPN ---
Subjective Date: 02/14/20 Time: 10:30 Principal diagnosis: L ankle fx; R tibia fx s/p IMN Interval history: No acute events reported overnight, AFVSS. The patient is fatigued and reports pain in the R leg, but improved from pre-operatively. Baseline peripheral neuropathy present, no additional numbness reported in RLE. PN: Obj Ex Vital signs: Temp Pulse Resp BP Pulse Ox 97.9 F 97 H 18 95/49 L 95 02/14/20 07:46 02/14/20 10:00 02/14/20 07:46 02/14/20 10:00 02/14/20 07:46 - Constitutional no acute distress - Routine HEENT Exam Head: Present: normocephalic Eye: Present: EOMI ENT: Present: mucous membranes moist - Routine Respiratory Exam Absent: respiratory distress, wheezes - Routine Cardiovascular Exam Present: RRR - Routine Extremities Exam Comments: RLE splint/dressings c/d/i, no strikethrough palpable pedal pulses RLE, foot warm/pink +DF/PF/EHL RLE SILT distally RLE, at basline L ankle in CAM boot - Routine Skin Exam Present: warm - Routine Neurological Exam Present: alert, oriented X3, moving all extremities, normal tone, vision grossly intact, hearing grossly intact, normal speech. Absent: sensory deficit, motor deficit, altered mental status - Routine Psychiatric Exam Present: normal affect Progress Note: A&P (1) Fracture of right tibia and fibula Status: Acute Current Visit: Yes (2) Bimalleolar fracture of left ankle Status: Acute Current Visit: Yes (3) COPD (chronic obstructive pulmonary disease) Status: Chronic Current Visit: No (4) Deep vein thrombosis (DVT) of left lower extremity Status: Chronic Current Visit: No (5) Fall Status: Acute Current Visit: No (6) HHD (hypertensive heart disease) Status: Chronic Current Visit: No (7) FELIZ (obstructive sleep apnea) Status: Chronic Current Visit: No (8) CAD (coronary artery disease) Status: Chronic Current Visit: No (9) S/P drug eluting coronary stent placement Status: Chronic Current Visit: No (10) Smoker Status: Chronic Current Visit: No (11) Diabetes mellitus with hyperglycemia Status: Chronic Current Visit: Yes (12) GERD without esophagitis Status: Acute Current Visit: Yes Assessment and Plan for All Diagnoses:: 54yo F with non-displaced bimalleolar fracture L ankle + R tibia fracture POD 1 s/p IMN R tibia -- CAM boot L ankle, non-op; WBAT -- keep LLE elevated, ice as needed -- do not remove splint RLE, keep elevated, may ice as needed. NWB RLE. -- PT to eval -- restart Eliquis tonight -- clindamycin 900mg Q8hr x2 doses for post-op prophy; to finish today -- encourage incentive spirometry 10x/hr while awake -- pain control; encourage oral meds with IV PRN for breakthrough -- dispo planning: anticipate SNF referral
--- NOTE | 2020-02-14 12:38 | PC.NURSE ---
1100 hypotension noted with automatic cuff (SBP 88). Manual cuff then used. Hypotension continues (SBP 78). Pt asymptomatic. Placed pt in trendelenburg position. BP rechecked. SBP 90.
--- NOTE | 2020-02-14 12:59 | PC.NURSE ---
SPOKE WITH DR MELCHOR AT THIS TIME ABOUT PATIENT PAIN CONTROL. RELAYED PATIENT BP HAD BEEN LOW, WHILE PATIENT IS NOT SYMPTOMATIC WITH BP SHE IS COMPLAINING OF PAIN AND REQUESTING PAIN MEDICATION. PATIENT STILL NOT DUE A PAIN PILL, AND DILAUDID WILL DECREASE BP. MD STATED TO CHANGE PATIENT OXYCODONE TO 7.5MG AND TO GIVE Q4HPRN. ALSO RELAYED TO MD THAT SOME URINE GOT ON DRESSING AND NEW SOFT ROLL AND ALEJO BANDAGE WERE REPLACED ON IT.
[2020-02-14 13:18] LABS: POC Glucose,Bedside 172 (70-110)
--- NOTE | 2020-02-14 14:13 | HMH.PTEV ---
Physical Therapy Evaluation Rehab PT IP Evaluation Start: 02/13/20 16:26 Freq: ONCE Status: Active Protocol: Document 02/14/20 14:05 CHASTITY (Rec: 02/14/20 14:13 CHASTITY [id number]) Subjective/History History History 54-year-old female with coronary artery disease, uncontrolled diabetes, COPD and recent hospitalization at this facility for left leg DVT , C. difficile diarrhea, UTI presented to the emergency department after a fall at home. Patient states she was walking through her home using her walker when her left ankle gave out on her resulting in a fall directly onto the right knee. Patient had immediate onset of pain in the right knee with less significant pain in the left ankle. She was unable to ambulate further. Patient was brought to the emergency department. In the ER patient was found to have a proximal tib-fib fracture as well as a left ankle fracture. Pt had IMN placed yesterday. Pt is NWB RLW, WBAT in CAM boot LLE Subjective Subjective Pt reports severe pain in BLE - 10, pt reports she feels she was doing well before fall - pt states she was able to transfer and ambulate short distances (10-15') by herself w/ rollator. Pt states she was able to toilet transfer w/ out assistance. Pt is very emotional about the fall and fx. Pt reports she has w/c, RW,rollator at home. Pt reports she lives w/ sister and spouse, states they are always home Rehab PT IP Eval Objective Appearance Patient Behavior Cooperative,Guarded,Fearful Patient Orientation Person,Place,Time,Name, Birthday,Year,Situation Difficulty following instructions none Speech Pattern Karyn
[2020-02-14 16:41] LABS: POC Glucose,Bedside 273 (70-110)
--- NOTE | 2020-02-14 17:43 | PC.NURSE ---
Pt remains hypotensive entire shift. Lowest SBP of 78. Pt is asymptomatic with hypotension. Pain in BLE is biggest issue. Percocet increased to 7.5mg Q4hrs prn per Dr. Bhardwaj. Pt tolerates increase well. PT got pt OOB to chair with max assist. Pt able to bear weight and pivot. Pt stayed in chair for aprox 3 hrs and then requested to go back to bed. RLE mildly saturated with urine during shift. Part of dressing changed. Dr. De La Rosa updated. Bilateral AC PIVs discontinued. New PIV inserted in right FA. Diet advanced to cardiac diet 1999 elizabeth.
[2020-02-14 18:21] LABS: Hematocrit 27.3 % (37.0-47.0); Hemoglobin 8.4 g/dL (12.2-16.2)
[2020-02-14 20:32] LABS: POC Glucose,Bedside 252 (70-110)
--- NOTE | 2020-02-15 00:50 | PC.NURSE ---
She has required frequent pain medication for pain control. Unable to control pain with repositioning. She reports that when she gets either her heel comfortable then her knee hurts and vice versa. She received a bed bath and did not want a linen change. She used the incentive spirometer when instructed and was educated to use more frequently. Ice pack is present on on her RLE. She is voiding per the jillianwick. Urine is dark yellow, cloudy. Continues on RA. Per report she sat in the chair during dayshift but has been in the bed this shift. DSG in place on RLE and boot is in place on LLE.
[2020-02-15 03:04] VITALS: BP 96/51; PULSE 94; RESP 17; TEMP 36.6; O2SAT 92
[2020-02-15 05:46] VITALS: BMI 31.8
[2020-02-15 06:01] LABS: POC Glucose,Bedside 144 (70-110)
[2020-02-15 07:15] LABS: Basophils % 0.4 % (0.1-2.0); Eosinophils # 0.3 K/mm3 (0.0-0.4); Eosinophils % 3.3 % (0.1-12.0); Hemoglobin 8.7 g/dL (12.2-16.2); Lymphocytes # 3.1 K/mm3 (0.7-4.5); Mean Corpuscular HGB Conc 31.2 g/dL (31.8-35.4); Mean Corpuscular Hemoglobin 26.4 pg (27.0-31.2); Mean Corpuscular Volume 84.6 fl (81-99); Mean Platelet Volume 8.3 fl (7.4-10.4); Monocytes # 0.4 K/mm3 (0.1-1.0); Monocytes % 4.3 % (1.7-9.3); Neutrophils # 4.8 K/mm3 (1.8-7.8); Platelet Count 258 K/mm3 (142-424); Red Blood Count 3.29 M/mm3 (4.20-5.40); Red Cell Distribution Width 18.8 % (11.5-17.5); White Blood Count 8.6 K/mm3 (4.8-10.8)
[2020-02-15 07:19] LABS: Hematocrit 27.9 % (37.0-47.0)
--- NOTE | 2020-02-15 07:36 | HMH.ACPN2 ---
Internal Medicine - PN: Subj *Date: 02/15/20 *Time: 07:38 Interval history: Patient's only complaint this morning is the pain in her right leg. Patient states the oral pain medication reduces pain minimally. IV pain medication is more effective. Nursing staff informs me of patient's persistent hypotension. Patient herself denies any chest pain or shortness of breath and has been more consistently using the incentive spirometer. Patient did have her PT eval yesterday Exam Vital signs and Labs for Last 24 Hours: Temp Pulse Resp BP Pulse Ox 97.9 F 94 H 17 96/51 L 92 L 02/15/20 03:04 02/15/20 03:04 02/15/20 03:04 02/15/20 03:04 02/15/20 03:04 Laboratory Results - last 24 hr 02/14/20 11:04: POC Glucose 172 H 02/14/20 16:29: POC Glucose 273 H 02/14/20 18:10: Hgb 8.4 L, Hct 27.3 L 02/14/20 19:58: POC Glucose 252 H 02/15/20 05:42: POC Glucose 144 H 02/15/20 06:59: WBC 8.6, RBC 3.29 L, Hgb 8.7 L, Hct 27.9 L, MCV 84.6, MCH 26.4 L, MCHC 31.2 L, RDW 18.8 H, Plt Count 258, MPV 8.3, Neut % (Auto) 56.0, Lymph % (Auto) 36.0, Evans % (Auto) 4.3, Eos % (Auto) 3.3, Baso % (Auto) 0.4, Neut # (Auto) 4.8, Lymph # (Auto) 3.1, Evans # (Auto) 0.4, Eos # (Auto) 0.3, Baso # (Auto) 0.0 I & O for Last 24 hours: Intake & Output 02/12/20 02/13/20 02/14/20 02/15/20 11:59 11:59 11:59 11:59 Intake Total 1757 / 1757 2650 / 2650 2371 / 2371 Output Total 700 / 700 1800 / 1800 Balance 1057 / 1057 2650 / 2650 571 / 571 Weight 138 lb 5 oz 145 lb 6 oz 161 lb 4 oz 158 lb - Constitutional no acute distress - *Routine Respiratory Exam Present: CTA bilaterally, distant breath sounds - *Routine Cardiovascular Exam Present: RRR, Normal S1, Normal S2 - *Routine Extremities Exam Comments: Right lower extremity remains splinted. Left lower extremity remains in cam walker Assessment and Plan (1) Fracture of right tibia and fibula Current visit: Yes Status: Acute Qualifiers: Encounter type: initial encounter Fracture type: closed Qualified Code(s): S82.201A - Unspecified fracture of shaft of right tibia, initial encounter for closed fracture; S82.401A - Unspecified fracture of shaft of right fibula, initial encounter for closed fracture Category: Medical Code(s): S82.201A - Unspecified fracture of shaft of right tibia, initial encounter for closed fracture; S82.401A - Unspecified fracture of shaft of right fibula, initial encounter for closed fracture (2) Bimalleolar fracture of left ankle Current visit: Yes Status: Acute Qualifiers: Encounter type: initial encounter Fracture type: closed Qualified Code(s): S82.842A - Displaced bimalleolar fracture of left lower leg, initial encounter for closed fracture Category: Medical Code(s): S82.842A - Displaced bimalleolar fracture of left lower leg, initial encounter for closed fracture (3) COPD (chronic obstructive pulmonary disease) Current visit: No Status: Chronic Qualifiers: COPD type: COPD with acute exacerbation Qualified Code(s): J44.1 - Chronic obstructive pulmonary disease with (acute) exacerbation Category: Medical Code(s): J44.9 - Chronic obstructive pulmonary disease, unspecified (4) Deep vein thrombosis (DVT) of left lower extremity Current visit: No Status: Chronic Qualifiers: Affected thrombotic vein of extremity: femoral Category: Medical Code(s): I82.402 - Acute embolism and thrombosis of unspecified deep veins of left lower extremity (5) Fall Current visit: No Status: Acute Qualifiers: Encounter type: initial encounter Qualified Code(s): W19.XXXA - Unspecified fall, initial encounter Category: Medical Code(s): W19.XXXA - Unspecified fall, initial encounter (6) HHD (hypertensive heart disease) Current visit: No Status: Chronic Qualifiers: Heart failure presence: without heart failure Qualified Code(s): I11.9 - Hypertensive heart disease without heart failure Categor
[2020-02-15 07:38] LABS: Chloride 110 mmol/L (98-107); Potassium 4.1 mmoL/L (3.5-5.1); Sodium 137 mmol/L (136-145)
[2020-02-15 07:41] LABS: Anion Gap 5.1 mEq/L (5-15); Blood Urea Nitrogen 3 mg/dl (7-17); Carbon Dioxide 26 mmol/L (22.0-30.0); Creatinine Clearance Estimated 180 mL/min (50-200); Estimated Glomerular Filt Rate 166 ml/min (>60); GFR (African American) 201 ML/MIN (>60); Glucose 159 mg/dl (74-100)
[2020-02-15 07:53] LABS: Calcium 6.6 mg/dl (8.4-10.2)
[2020-02-15 07:56] VITALS: BP 102/65; PULSE 109; TEMP 36.9; O2SAT 93
[2020-02-15 08:00] VITALS: PULSE 109; O2SAT 93
--- NOTE | 2020-02-15 09:22 | PC.NURSE ---
AT 0757 REPORTED NOTFICATION RESULT OF CALCIUM AT 6.6. ALSO RELAYED THE RESULT OF BMP PER HIS REQUEST
[2020-02-15 11:10] LABS: POC Glucose,Bedside 260 (70-110)
[2020-02-15 12:00] VITALS: BP 82/53; PULSE 97; RESP 16; TEMP 36.7; O2SAT 93
--- NOTE | 2020-02-15 12:53 | HMH.ORTHPN ---
Subjective Date: 02/15/20 Time: 12:00 Principal diagnosis: L ankle fx; R tibia fx s/p IMN Interval history: The patient is doing well with the exception of pain in the right leg. IV pain medication is helping but oral doesn't seem to be providing long-lasting relief. She is tolerating good PO intake and voiding appropriately. Periodic hypotension reported. No chest pain, shortness of breath reported; AFVSS. PN: Obj Ex Vital signs: Temp Pulse Resp BP Pulse Ox 98.0 F 97 H 16 82/53 L 93 L 02/15/20 12:00 02/15/20 12:00 02/15/20 12:00 02/15/20 12:00 02/15/20 12:00 - Constitutional no acute distress - Routine HEENT Exam Head: Present: normocephalic Eye: Present: EOMI ENT: Present: mucous membranes moist - Routine Respiratory Exam Absent: respiratory distress, wheezes - Routine Cardiovascular Exam Present: RRR - Routine Abdominal Exam Present: soft. Absent: distended - Routine Extremities Exam Comments: RLE splint/dressings c/d/i, no strikethrough palpable pedal pulses RLE, foot warm/pink +DF/PF/EHL RLE SILT distally RLE, at basline L ankle in CAM boot - Routine Skin Exam Present: warm - Routine Neurological Exam Present: alert, oriented X3, moving all extremities, normal tone, vision grossly intact, hearing grossly intact, normal speech. Absent: sensory deficit, motor deficit, altered mental status - Routine Psychiatric Exam Present: normal affect Progress Note: A&P (1) Fracture of right tibia and fibula Status: Acute Current Visit: Yes (2) Bimalleolar fracture of left ankle Status: Acute Current Visit: Yes (3) COPD (chronic obstructive pulmonary disease) Status: Chronic Current Visit: No (4) Deep vein thrombosis (DVT) of left lower extremity Status: Chronic Current Visit: No (5) Fall Status: Acute Current Visit: No (6) HHD (hypertensive heart disease) Status: Chronic Current Visit: No (7) FELIZ (obstructive sleep apnea) Status: Chronic Current Visit: No (8) CAD (coronary artery disease) Status: Chronic Current Visit: No (9) S/P drug eluting coronary stent placement Status: Chronic Current Visit: No (10) Smoker Status: Chronic Current Visit: No (11) Diabetes mellitus with hyperglycemia Status: Chronic Current Visit: Yes (12) GERD without esophagitis Status: Acute Current Visit: Yes Assessment and Plan for All Diagnoses:: 54yo F with non-displaced bimalleolar fracture L ankle + R tibia fracture POD 2 s/p IMN R tibia -- CAM boot L ankle, non-op; WBAT -- keep LLE elevated, ice as needed -- do not remove splint RLE, keep elevated, may ice as needed. NWB RLE. -- continue PT -- continue Eliquis -- encourage incentive spirometry 10x/hr while awake -- pain control; encourage oral meds with IV PRN for breakthrough -- dispo planning: anticipate SNF referral
[2020-02-15 16:18] VITALS: BP 106/52; PULSE 90; RESP 12; TEMP 36.6; O2SAT 97
[2020-02-15 16:35] LABS: POC Glucose,Bedside 364 (70-110)
--- NOTE | 2020-02-15 16:51 | PC.NURSE ---
FSBS increasing throughout shift despite teaching regarding diabetic diet. Pt's sister brings her fast food and regular soda to drink. Urine output deep/tea color. Purwick in place. Pt complains of yeast infection in ariana area. Labia are reddened. She reports that she was prescribed Flagyl prior to this hospital stay and that the bottle is in the locked drawer. Will pass this info to warehouse shift supervisor RN to relay for rounds tomorrow. Left buttock area has small tear. Small Polymem applied after cleansing area with soap and water. Pt has been turned Q2 unless she refuses. Pt up to chair at 4pm with max assist. Toradol added today as well as Percocet increased to 10mg Q6hrs prn per Dr. De La Rosa. Pain better managed with Toradol. BP better managed today.
[2020-02-15 17:59] LABS: Hemoglobin 8.4 g/dL (12.2-16.2)
[2020-02-15 18:01] LABS: Hematocrit 28.4 % (37.0-47.0)
[2020-02-15 20:00] VITALS: BP 112/65; PULSE 88; RESP 17; TEMP 36.6; O2SAT 93
[2020-02-15 21:00] LABS: POC Glucose,Bedside 231 (70-110)
[2020-02-16 04:00] VITALS: BP 106/63; PULSE 96; RESP 16; TEMP 37.2; O2SAT 93
--- NOTE | 2020-02-16 04:09 | PC.NURSE ---
She has received PRN medication several times. Continues with ice pack on her right knee. DSG is is place on RLE. Boot is in place on LLE. Continued encouragement to use incentive spirometer. She transferred from the chair to the bed with a gait belt and assist x2.
[2020-02-16 05:24] LABS: POC Glucose,Bedside 274 (70-110)
[2020-02-16 06:21] LABS: Basophils % 0.3 % (0.1-2.0); Eosinophils # 0.4 K/mm3 (0.0-0.4); Eosinophils % 4.6 % (0.1-12.0); Hemoglobin 8.9 g/dL (12.2-16.2); Lymphocytes # 2.4 K/mm3 (0.7-4.5); Mean Corpuscular HGB Conc 30.7 g/dL (31.8-35.4); Mean Corpuscular Hemoglobin 26.2 pg (27.0-31.2); Mean Corpuscular Volume 85.4 fl (81-99); Mean Platelet Volume 8.3 fl (7.4-10.4); Monocytes # 0.4 K/mm3 (0.1-1.0); Neutrophils # 4.9 K/mm3 (1.8-7.8); Neutrophils % 60.2 % (37.0-80.0); Platelet Count 279 K/mm3 (142-424); Red Cell Distribution Width 18.3 % (11.5-17.5); White Blood Count 8.1 K/mm3 (4.8-10.8)
[2020-02-16 06:28] LABS: Chloride 109 mmol/L (98-107)
[2020-02-16 06:29] LABS: Potassium 4.7 mmoL/L (3.5-5.1); Sodium 137 mmol/L (136-145)
[2020-02-16 06:31] LABS: Blood Urea Nitrogen 7 mg/dl (7-17); Creatinine Clearance Estimated 144 mL/min (50-200); Estimated Glomerular Filt Rate 128 ml/min (>60); GFR (African American) 155 ML/MIN (>60)
[2020-02-16 06:32] LABS: Anion Gap 5.7 mEq/L (5-15); Carbon Dioxide 27 mmol/L (22.0-30.0); Glucose 254 mg/dl (74-100)
[2020-02-16 06:33] LABS: Calcium 6.9 mg/dl (8.4-10.2)
[2020-02-16 06:42] VITALS: BMI 33.7
[2020-02-16 08:00] VITALS: BP 124/74; PULSE 100; RESP 20; TEMP 36.6; O2SAT 98
[2020-02-16 08:26] LABS: Vitamin D 25 Hydroxy 26.4 ng/mL (30.0-100.0)
--- NOTE | 2020-02-16 10:09 | SW/DCPLANNER ---
Addendum entered by Preethi Lopez 02/16/20 14:30: [facility] is NOT in network with patients insurance. Rachele with [facility] has informed me that she received patients information and is beginning precert for this patient. Addendum entered by Preethi Lopez 02/16/20 13:22: Patient is now agreeable to [facility] due to having a bed available. Patient information has been faxed to Rachele at [facility]. I will continue to follow up with [facility] and [facility]. Addendum entered by Preethi Lopez 02/16/20 11:07: [facility] nor [facility] have beds at this time. I have faxed demographics to Abe Vanegas for [facility] to review and see if they are in network with patients insurance. I have also left a voicemail with [facility]. Original Note: I have a referral regarding placement for this patient. Patient was living with her sister prior to admission to [facility] for a fall which required surgery. Patient is interested in short term placement at this time. Patient stated that she has been to several facilities in the past: [facility] in [place] (has a unpaid bill at this facility) and [facility]. Patient is not interested in returning to [facility] at this time. Patient stated that she is interested in [facility] (no beds at this time), [facility] (voicemail left), possibly [facility] (voicemail left) and possibly [facility] (voicemail left). I will continue to follow up with facilities regarding bed availability. Discharge date is unknown at this time.
[2020-02-16 11:25] LABS: POC Glucose,Bedside 184 (70-110)
--- NOTE | 2020-02-16 12:21 | HMH.ACPN2 ---
Internal Medicine - PN: Subj *Date: 02/16/20 *Time: 12:21 Interval history: Patient has no complaints today. Her pain is better controlled. Exam Vital signs and Labs for Last 24 Hours: Temp Pulse Resp BP Pulse Ox 97.8 F 100 H 20 124/74 98 02/16/20 08:00 02/16/20 08:00 02/16/20 08:00 02/16/20 08:00 02/16/20 08:00 Laboratory Results - last 24 hr 02/12/20 18:30: Crossmatch (AHG) See Detail 02/14/20 05:55: 25-OH Vitamin D Total 26.4 L 02/15/20 15:55: POC Glucose 364 H* 02/15/20 17:50: Hgb 8.4 L, Hct 28.4 L 02/15/20 20:22: POC Glucose 231 H 02/16/20 05:10: POC Glucose 274 H 02/16/20 06:00: WBC 8.1, RBC 3.40 L, Hgb 8.9 L, Hct 29.0 L, MCV 85.4, MCH 26.2 L, MCHC 30.7 L, RDW 18.3 H, Plt Count 279, MPV 8.3, Neut % (Auto) 60.2, Lymph % (Auto) 30.0, Barnes % (Auto) 5.0, Eos % (Auto) 4.6, Baso % (Auto) 0.3, Neut # (Auto) 4.9, Lymph # (Auto) 2.4, Barnes # (Auto) 0.4, Eos # (Auto) 0.4, Baso # (Auto) 0.0 02/16/20 06:00: Sodium 137, Potassium 4.7, Chloride 109 H, Carbon Dioxide 27, Anion Gap 5.7, BUN 7 D, Creatinine 0.50 L D, Estimated Creat Clear 144, Estimated GFR 128, Est GFR ( Amer) 155 D, Glucose 254 H D, Calcium 6.9 L 02/16/20 11:18: POC Glucose 184 H I & O for Last 24 hours: Intake & Output 02/14/20 02/15/20 02/16/20 02/17/20 11:59 11:59 11:59 11:59 Intake Total 2650 / 2650 2371 / 2371 2663 / 2663 Output Total 1800 / 1800 1200 / 1200 Balance 2650 / 2650 571 / 571 1463 / 1463 Weight 161 lb 4 oz 158 lb 167 lb 7 oz - Constitutional no acute distress - *Routine Respiratory Exam Present: CTA bilaterally - *Routine Cardiovascular Exam Present: RRR - *Routine Abdominal Exam Present: soft Assessment and Plan (1) Fracture of right tibia and fibula Current visit: Yes Status: Acute Qualifiers: Encounter type: initial encounter Fracture type: closed Qualified Code(s): S82.201A - Unspecified fracture of shaft of right tibia, initial encounter for closed fracture; S82.401A - Unspecified fracture of shaft of right fibula, initial encounter for closed fracture Category: Medical Code(s): S82.201A - Unspecified fracture of shaft of right tibia, initial encounter for closed fracture; S82.401A - Unspecified fracture of shaft of right fibula, initial encounter for closed fracture (2) Bimalleolar fracture of left ankle Current visit: Yes Status: Acute Qualifiers: Encounter type: initial encounter Fracture type: closed Qualified Code(s): S82.842A - Displaced bimalleolar fracture of left lower leg, initial encounter for closed fracture Category: Medical Code(s): S82.842A - Displaced bimalleolar fracture of left lower leg, initial encounter for closed fracture (3) COPD (chronic obstructive pulmonary disease) Current visit: No Status: Chronic Qualifiers: COPD type: COPD with acute exacerbation Qualified Code(s): J44.1 - Chronic obstructive pulmonary disease with (acute) exacerbation Category: Medical Code(s): J44.9 - Chronic obstructive pulmonary disease, unspecified (4) Deep vein thrombosis (DVT) of left lower extremity Current visit: No Status: Chronic Qualifiers: Affected thrombotic vein of extremity: femoral Category: Medical Code(s): I82.402 - Acute embolism and thrombosis of unspecified deep veins of left lower extremity (5) Fall Current visit: No Status: Acute Qualifiers: Encounter type: initial encounter Qualified Code(s): W19.XXXA - Unspecified fall, initial encounter Category: Medical Code(s): W19.XXXA - Unspecified fall, initial encounter (6) HHD (hypertensive heart disease) Current visit: No Status: Chronic Qualifiers: Heart failure presence: without heart failure Qualified Code(s): I11.9 - Hypertensive heart disease without heart failure Category: Medical Code(s): I11.9 - Hypertensive heart disease without heart failure (7) FELIZ (obstructive sleep apnea) Current visit: No Status: Application Internship
--- NOTE | 2020-02-16 14:39 | PC.NURSE ---
Patient has been up to chair for most of the day, has been medicated for pain frequently, finds more relief with iv pain meds, she states the oral pain meds havent given her any relief, dsg to right leg intact, no drainage noted, boot noted to left foot, new peripheral IV placed this shift, remains on RA, alert and oriented x4, perrla, no s/s of distress noted, vss, will continue to monitor.
--- NOTE | 2020-02-16 15:43 | HMH.ORTHPN ---
Subjective Date: 02/16/20 Time: 12:00 Principal diagnosis: L ankle fx; R tibia fx s/p IMN Interval history: Pain is better controlled today after increasing percocet to 10mg and adding toradol. Otherwise no complaints. Awaiting acceptance at SNF. PN: Obj Ex Vital signs: Temp Pulse Resp BP Pulse Ox 97.8 F 100 H 20 124/74 98 02/16/20 08:00 02/16/20 08:00 02/16/20 08:00 02/16/20 08:00 02/16/20 08:00 - Constitutional no acute distress - Routine HEENT Exam Head: Present: normocephalic Eye: Present: EOMI ENT: Present: mucous membranes moist - Routine Respiratory Exam Absent: respiratory distress, wheezes - Routine Cardiovascular Exam Present: RRR - Routine Abdominal Exam Present: soft. Absent: distended - Routine Extremities Exam Comments: RLE splint/dressings c/d/i, no strikethrough splint/dressings removed, all incisions c/d/i sutures c/d/i, no periwound erythema or drainage, minimal tenderness R calf soft, non-tender palpable pedal pulses RLE, foot warm/pink +DF/PF/EHL RLE SILT distally RLE, at basline L ankle in CAM boot - Routine Skin Exam Present: warm - Routine Neurological Exam Present: alert, oriented X3, moving all extremities, normal tone, vision grossly intact, hearing grossly intact, normal speech. Absent: sensory deficit, motor deficit, altered mental status - Routine Psychiatric Exam Present: normal affect Progress Note: A&P (1) Fracture of right tibia and fibula Status: Acute Current Visit: Yes (2) Bimalleolar fracture of left ankle Status: Acute Current Visit: Yes (3) COPD (chronic obstructive pulmonary disease) Status: Chronic Current Visit: No (4) Deep vein thrombosis (DVT) of left lower extremity Status: Chronic Current Visit: No (5) Fall Status: Acute Current Visit: No (6) HHD (hypertensive heart disease) Status: Chronic Current Visit: No (7) FELIZ (obstructive sleep apnea) Status: Chronic Current Visit: No (8) CAD (coronary artery disease) Status: Chronic Current Visit: No (9) S/P drug eluting coronary stent placement Status: Chronic Current Visit: No (10) Smoker Status: Chronic Current Visit: No (11) Diabetes mellitus with hyperglycemia Status: Chronic Current Visit: Yes (12) GERD without esophagitis Status: Acute Current Visit: Yes Assessment and Plan for All Diagnoses:: 54yo F with non-displaced bimalleolar fracture L ankle + R tibia fracture POD 3 s/p IMN R tibia -- CAM boot L ankle, non-op; WBAT -- keep LLE elevated, ice as needed -- do not remove splint RLE, keep elevated, may ice as needed. NWB RLE. Dressings and splint changed today. -- continue PT -- continue Eliquis -- encourage incentive spirometry 10x/hr while awake -- pain control; encourage oral meds with IV PRN for breakthrough -- dispo planning: awaiting acceptance at SNF; ok to d/c from ortho standpoint. F/u in clinic Sunday02/23/20.
[2020-02-16 16:00] VITALS: BP 101/54; PULSE 96; RESP 16; TEMP 36.6; O2SAT 98
[2020-02-16 16:50] LABS: POC Glucose,Bedside 308 (70-110)
--- NOTE | 2020-02-16 19:12 | PC.NURSE ---
report given to flako
[2020-02-16 20:00] VITALS: BP 106/41; PULSE 97; RESP 19; TEMP 36.8; O2SAT 98
[2020-02-16 21:05] LABS: POC Glucose,Bedside 234 (70-110)
[2020-02-17 04:00] VITALS: BP 100/62; PULSE 100; RESP 18; TEMP 36.9; O2SAT 95
[2020-02-17 05:47] LABS: POC Glucose,Bedside 259 (70-110)
--- NOTE | 2020-02-17 06:32 | PC.NURSE ---
a&o x4. pt rested well this shift with eyes closed. c/o severe pain early this am. administered po percocet per nov. upon reassessment pt states no relief from po med. refused to be administered Tylenol per nov. encouraged use of po meds first. administered tordol per pt request. pt rated pain 8/10 on pain scale of right leg. upon reassessment pt noted resting peacefully with eyes closed with no further complaints. will continue to reassess and monitor. ble remains elevated on pillows. dsg note dc/d/i. ice pack therapy placed to ble intermittently this am for additional pain relief. tolerated ra well with no c/o soa. encouraged use of incentive spirometer this am. vss. remains safe. call light within reach. will continue to monitor.
[2020-02-17 06:47] LABS: Basophils % 0.4 % (0.1-2.0); Eosinophils # 0.4 K/mm3 (0.0-0.4); Eosinophils % 4.9 % (0.1-12.0); Hematocrit 27.8 % (37.0-47.0); Hemoglobin 8.4 g/dL (12.2-16.2); Lymphocytes # 2.4 K/mm3 (0.7-4.5); Lymphocytes % 31.7 % (10-50); Mean Corpuscular HGB Conc 30.1 g/dL (31.8-35.4); Mean Corpuscular Hemoglobin 25.8 pg (27.0-31.2); Mean Platelet Volume 8.5 fl (7.4-10.4); Monocytes # 0.4 K/mm3 (0.1-1.0); Monocytes % 4.9 % (1.7-9.3); Neutrophils # 4.4 K/mm3 (1.8-7.8); Neutrophils % 58.1 % (37.0-80.0); Platelet Count 289 K/mm3 (142-424); Red Blood Count 3.24 M/mm3 (4.20-5.40); Red Cell Distribution Width 18.6 % (11.5-17.5); White Blood Count 7.5 K/mm3 (4.8-10.8)
[2020-02-17 06:58] LABS: Chloride 107 mmol/L (98-107); Sodium 135 mmol/L (136-145)
[2020-02-17 07:01] LABS: Blood Urea Nitrogen 8 mg/dl (7-17); Calcium 7.5 mg/dl (8.4-10.2); Carbon Dioxide 27 mmol/L (22.0-30.0); Creatinine Clearance Estimated 191 mL/min (50-200); Estimated Glomerular Filt Rate 166 ml/min (>60); GFR (African American) 201 ML/MIN (>60); Glucose 276 mg/dl (74-100)
--- NOTE | 2020-02-17 07:18 | HMH.ACPN2 ---
Internal Medicine - PN: Subj *Date: 02/17/20 *Time: 07:18 Interval history: Patient reports no problems this morning. Pain in the right lower leg is better controlled with her current regimen of pain medication. She states the left foot and ankle is a little sore when she bears weight but pain is not severe. She continues to use incentive spirometer. Exam Vital signs and Labs for Last 24 Hours: Temp Pulse Resp BP Pulse Ox 98.5 F 100 H 18 100/62 L 95 02/17/20 04:00 02/17/20 04:00 02/17/20 04:00 02/17/20 04:00 02/17/20 04:00 Laboratory Results - last 24 hr 02/14/20 05:55: 25-OH Vitamin D Total 26.4 L 02/16/20 11:18: POC Glucose 184 H 02/16/20 16:42: POC Glucose 308 H* 02/16/20 20:54: POC Glucose 234 H 02/17/20 05:40: POC Glucose 259 H 02/17/20 05:57: WBC 7.5, RBC 3.24 L, Hgb 8.4 L, Hct 27.8 L, MCV 86.0, MCH 25.8 L, MCHC 30.1 L, RDW 18.6 H, Plt Count 289, MPV 8.5, Neut % (Auto) 58.1, Lymph % (Auto) 31.7, Clay % (Auto) 4.9, Eos % (Auto) 4.9, Baso % (Auto) 0.4, Neut # (Auto) 4.4, Lymph # (Auto) 2.4, Clay # (Auto) 0.4, Eos # (Auto) 0.4, Baso # (Auto) 0.0 02/17/20 05:57: Sodium 135 L, Potassium 5.0, Chloride 107, Carbon Dioxide 27, Anion Gap 6.0, BUN 8, Creatinine 0.40 L, Estimated Creat Clear 191, Estimated GFR 166, Est GFR ( Amer) 201 D, Glucose 276 H, Calcium 7.5 L I & O for Last 24 hours: Intake & Output 02/14/20 02/15/20 02/16/20 02/17/20 11:59 11:59 11:59 11:59 Intake Total 2650 / 2650 2371 / 2371 2663 / 2663 1110 / 1110 Output Total 1800 / 1800 1200 / 1200 1450 / 1450 Balance 2650 / 2650 571 / 571 1463 / 1463 -340 / -340 Weight 161 lb 4 oz 158 lb 167 lb 7 oz Narrative: Patient in no distress. She is resting comfortably in bed. Lungs remain clear. Heart has a regular rate and rhythm. Abdomen is soft. Right lower extremity is in a posterior splint. Left lower leg is in a Cam walking boot. Assessment and Plan (1) Fracture of right tibia and fibula Current visit: Yes Status: Acute Qualifiers: Encounter type: initial encounter Fracture type: closed Qualified Code(s): S82.201A - Unspecified fracture of shaft of right tibia, initial encounter for closed fracture; S82.401A - Unspecified fracture of shaft of right fibula, initial encounter for closed fracture Category: Medical Code(s): S82.201A - Unspecified fracture of shaft of right tibia, initial encounter for closed fracture; S82.401A - Unspecified fracture of shaft of right fibula, initial encounter for closed fracture (2) Bimalleolar fracture of left ankle Current visit: Yes Status: Acute Qualifiers: Encounter type: initial encounter Fracture type: closed Qualified Code(s): S82.842A - Displaced bimalleolar fracture of left lower leg, initial encounter for closed fracture Category: Medical Code(s): S82.842A - Displaced bimalleolar fracture of left lower leg, initial encounter for closed fracture (3) COPD (chronic obstructive pulmonary disease) Current visit: No Status: Chronic Qualifiers: COPD type: COPD with acute exacerbation Qualified Code(s): J44.1 - Chronic obstructive pulmonary disease with (acute) exacerbation Category: Medical Code(s): J44.9 - Chronic obstructive pulmonary disease, unspecified (4) Deep vein thrombosis (DVT) of left lower extremity Current visit: No Status: Chronic Qualifiers: Affected thrombotic vein of extremity: femoral Category: Medical Code(s): I82.402 - Acute embolism and thrombosis of unspecified deep veins of left lower extremity (5) Fall Current visit: No Status: Acute Qualifiers: Encounter type: initial encounter Qualified Code(s): W19.XXXA - Unspecified fall, initial encounter Category: Medical Code(s): W19.XXXA - Unspecified fall, initial encounter (6) HHD (hypertensive heart disease) Current visit: No Status: Chronic Qualifiers: Heart failure presence: without heart failure Qualified Code(s): I1
--- NOTE | 2020-02-17 07:21 | [facility].DCSUM ---
General - General Admission date:: 02/12/20 Discharge date: 02/17/20 HPI HPI: 54-year-old female with coronary artery disease, uncontrolled diabetes, COPD and recent hospitalization at this facility for left leg DVT, C. difficile diarrhea, and UTI presented to the emergency department after a fall at home. Patient states she was walking through her home using her walker when her left ankle gave out on her resulting in a fall directly onto the right knee. Patient had immediate onset of pain in the right knee with less significant pain in the left ankle. She was unable to ambulate further. Patient was brought to the emergency department. In the ER patient was found to have a proximal tib-fib fracture as well as a left ankle fracture. She has been admitted for orthopedic consultation. Orthopedic service plans on intramedullary nail of the right tibia tomorrow afternoon. Patient denies syncope contributing to her fall. Patient denies recent chest pain, shortness of breath or palpitations. Patient underwent cardiac evaluation by local cardiology services in May 2019 with a Lexiscan stress test revealing no ischemia and an echocardiogram revealing a normal ejection fraction. Hospital Course Hospital Course: Patient was admitted. Dr. De La Rosa of the orthopedic service consulted and plan for surgery on February 12. On February 12 patient underwent intramedullary nailing of the right tibia with application of a posterior splint postoperatively. Patient will be nonweightbearing until further bone healing and weightbearing status will be decided by Dr. De La Rosa. Patient's left ankle fracture was treated nonoperatively and the patient was placed in a walking boot. She is allowed to bear weight as tolerated. Postoperatively physical therapy evaluated the patient. Due to mobility issues it was felt that the patient would best be served by rehabilitation at a [facility] facility. Patient was accepted at Patient had recent hospitalization where she was identified as having extensive left leg DVT. Patient's Eliquis was held prior to surgery and she was given Lovenox. Postoperatively she was given DVT prophylactic dosing of Lovenox and 24 hours after surgery was restarted on her Eliquis. She will need to continue Eliquis. Patient was kept on metoprolol postoperatively but due to persistent hypotension this was ultimately discontinued. Patient's systolics remained in the 90s to low 100s despite discontinuation of the medicine. This will be discontinued at discharge and can be restarted at a later date. Patient has underlying uncontrolled diabetes with neuropathy. She was continued on sliding scale insulin while hospitalized along with her home dose of basal insulin. Minor changes were made to her regimen while hospitalized. Emphasis was placed on improved glucose control in the long-term for the patient to aid healing of any and all wounds. Patient was given home medicines for hypertension, coronary artery disease while hospitalized. Objective Vital signs: Temp Pulse Resp BP Pulse Ox 98.5 F 100 H 18 100/62 L 95 02/17/20 04:00 02/17/20 04:00 02/17/20 04:00 02/17/20 04:00 02/17/20 04:00 no acute distress - *Routine Respiratory Exam Present: CTA bilaterally - *Routine Cardiovascular Exam Present: RRR - *Routine Abdominal Exam Present: soft, normoactive bowel sounds. Absent: tenderness - *Routine Extremities Exam Comments: Right lower leg is in a posterior splint. Left foot and ankle is in a cam walker Results Labs on day of discharge: Labs from last 24 hours 02/17/20 02/17/20 02/17/20 05:57 05:57 05:40 WBC 7.5 RBC 3.24 L Hgb 8.4 L Hct 27.8 L MCV 86.0 MCH 25.8 L MCHC 30.1 L RDW 18.6 H Plt Count 289 MPV 8.5 Neut % (Auto) 58.1 Lymph % (Auto) 31.7 [place] % (Auto) 4.9 Eos % (Auto) 4.9 Baso % (Auto) 0.4 Neut # (Auto) 4.4 Lymph # (Au
[2020-02-17 07:48] VITALS: BP 103/64; PULSE 95; RESP 16; TEMP 36.7; O2SAT 96
[2020-02-17 11:39] LABS: POC Glucose,Bedside 292 (70-110)
--- NOTE | 2020-02-17 16:04 | PC.NURSE ---
Called report to [facility]. Pt did have one time dose of biscodyl, although did refuse and want to wait in order not to have a bm on the way there. Did make Willian aware of this in report and she stated she would get something ordered for pt there. Did give ordered docusate per mar this am and warm prune jucie and coffee. BS hyperactive.
== END 2020-02-17 15:50 ==
LOC: ER 10:55 → 2ND 12:19
PROVIDERS: Orthopaedic Surgery; Admitting Provider Family Medicine; Emergency Provider Emergency Medicine; PCP Family Medicine; Visit Provider Family Medicine
PROC: (CPT 27759; principal; 2020-02-13 13:30)
DX: S82.291A Other fracture of shaft of right tibia, initial encounter for closed fracture (principal); S82.845A Nondisplaced bimalleolar fracture of left lower leg, initial encounter for closed fracture; E11.9 Type 2 diabetes mellitus without complications; Z79.01 Long term (current) use of anticoagulants; Z79.4 Long term (current) use of insulin; I11.9 Hypertensive heart disease without heart failure; Z95.5 Presence of coronary angioplasty implant and graft; Z72.0 Tobacco use; Z88.0 Allergy status to penicillin; Z88.2 Allergy status to sulfonamides; Z79.82 Long term (current) use of aspirin; J44.9 Chronic obstructive pulmonary disease, unspecified; I82.412 Acute embolism and thrombosis of left femoral vein; D64.9 Anemia, unspecified
CPT/HCPCS: 27759; 29515; 36415; 71045; 72170; 73552; 73590; 73610; 76000; 80048; 82652; 82962; 85014; 85018; 85025; 85610; 85730; 86328; 86850; 96365; 96372; 96375; 96376; 97110; 97162; 97530; 99285; C1713; C1769; G0378; J0131; J2405; J2710; P9016

== ENCOUNTER → 2020-02-26 11:09 | Outpatient (CLI) | payer MEDICARE, SELFPAY ==
--- NOTE | 2020-02-26 11:18 | XR_ITS ---
PROCEDURE: XR TIBIA FIBULA RT 2V CLINICAL INDICATION: s/p tibia fx and distal fibular fracture COMPARISON: XR TIBIA FIBULA RT 2V from 02/13/2020 FINDINGS: The long intramedullary rajeev is again seen extending the length of the tibia fixated by 3 threaded screws superiorly and 2 cores only placed threaded screws distally. The mild oblique fracture of the tibial neck is again seen in satisfactory alignment. The spiral oblique nondisplaced fracture distal fibula is stable. IMPRESSION: Satisfactory appearance of proximal tibial and distal fibular fractures post ORIF Dictated by: Dr. Campos Pennington MD 02/26/2020 13:[address] Campos Pennington MD in [place] 02/26/2020 13:51
--- NOTE | 2020-02-26 12:29 | XR_ITS ---
PROCEDURE: XR ANKLE LT MIN 3V CLINICAL INDICATION: ankle fx COMPARISON: XR ANKLE LT MIN 3V from 02/12/2020 XR TIBIA FIBULA RT 2V from 02/13/2020 XR TIBIA FIBULA RT 2V from 02/13/2020 FINDINGS: Mild diffuse soft tissue swelling seen in the lower leg and ankle. The nondisplaced oblique fracture distal fibula is noted without visible callus formation. The small chip fracture tip of medial malleolus is again noted unchanged in appearance. The ankle mortise appears grossly normal. Again there is a prominent spur of the calcaneus at the insertion of the Achilles tendon. IMPRESSION: Stable fractures distal fibula and tip of medial malleolus Dictated by: Dr. Campos Pennington MD 02/26/2020 13:[address] Campos Pennington MD in [facility] 02/26/2020 13:55
== END ==
LOC: RAD 11:12
PROVIDERS: PCP Family Medicine; Visit Provider Podiatrist
DX: S82.209A Unspecified fracture of shaft of unspecified tibia, initial encounter for closed fracture (principal); S82.892A Other fracture of left lower leg, initial encounter for closed fracture
CPT/HCPCS: 73590; 73610

== ENCOUNTER → 2020-03-19 09:58 | Outpatient (CLI) | payer MEDICARE, SELFPAY ==
--- NOTE | 2020-03-19 10:00 | XR_ITS ---
PROCEDURE: XR TIBIA FIBULA RT 2V CLINICAL INDICATION: s/p tibia fx Follow-up fracture COMPARISON: XR TIBIA FIBULA RT 2V from 02/12/2020 XR TIBIA FIBULA RT 2V from 02/13/2020 XR TIBIA FIBULA RT 2V from 02/13/2020 XR TIBIA FIBULA RT 2V from 02/26/2020 FINDINGS: Intramedullary rajeev remains in place stabilizing the proximal tibial and distal fibular fractures with developing callus formation with good alignment. Splint has been removed IMPRESSION: Good alignment status post ORIF tib fib fracture Dictated by: Ward Le MD 03/19/2020 17:13 Electronically signed by Ward Le MD in [place] 03/19/2020 17:13
--- NOTE | 2020-03-19 10:00 | XR_ITS ---
PROCEDURE: XR ANKLE RT MIN 3V CLINICAL INDICATION: s/p ankle fx Follow-up fracture COMPARISON: XR ANKLE LT MIN 3V from 02/12/2020 XR TIBIA FIBULA RT 2V from 03/19/2020 FINDINGS: Status post tib fib fracture with intramedullary rajeev. There is a healing oblique distal fibular fracture present with good alignment.. Ankle mortise appears preserved. The talar dome has an unremarkable appearance IMPRESSION: Good alignment healing distal fibular fracture Dictated by: Ward Le MD 03/19/2020 17:30 Electronically signed by Ward Le MD in [place] 03/19/2020 17:30
--- NOTE | 2020-03-19 10:28 | XR_ITS ---
PROCEDURE: XR ANKLE LT MIN 3V CLINICAL INDICATION: LEFT ANKLE FX Follow-up fracture COMPARISON: XR ANKLE LT MIN 3V from 02/12/2020 XR ANKLE LT MIN 3V from 02/26/2020 XR ANKLE RT MIN 3V from 03/19/2020 FINDINGS: There is a healing nondisplaced oblique distal fibular fracture with developing callus formation. Avulsion fracture noted also at the medial malleolar region. The ankle mortise does not appear widened. IMPRESSION: Healing distal tibial and fibular fracture Dictated by: Ward Le MD 03/19/2020 15:06 Electronically signed by Ward Le MD in [place] 03/19/2020 15:06
== END ==
PROVIDERS: PCP Family Medicine; Visit Provider Orthopaedic Surgery
DX: S82.191D Other fracture of upper end of right tibia, subsequent encounter for closed fracture with routine healing; S82.842A Displaced bimalleolar fracture of left lower leg, initial encounter for closed fracture
CPT/HCPCS: 73590; 73610

== ENCOUNTER 2020-03-19 12:31 | Outpatient (RCR) | payer MEDICARE, SELFPAY | END 2020-03-19 13:00 | disposition home or self-care (01) | LOC: PT 12:31 | PROVIDERS: Visit Provider Orthopaedic Surgery | DX: S82.191D Other fracture of upper end of right tibia, subsequent encounter for closed fracture with routine healing (principal); S82.842A Displaced bimalleolar fracture of left lower leg, initial encounter for closed fracture | CPT/HCPCS: 97760 ==

== ENCOUNTER → 2020-04-12 12:59 | Outpatient (CLI) | payer MEDICARE, SELFPAY ==
--- NOTE | 2020-04-12 13:03 | XR_ITS ---
PROCEDURE: XR TIBIA FIBULA RT 2V CLINICAL INDICATION: Tibia FX FU Follow-up fracture COMPARISON: XR TIBIA FIBULA RT 2V from 02/12/2020 XR TIBIA FIBULA RT 2V from 02/13/2020 XR TIBIA FIBULA RT 2V from 02/26/2020 XR TIBIA FIBULA RT 2V from 03/19/2020 FINDINGS: Tibial intramedullary rajeev remains in place stabilizing the transverse fracture of the proximal tibia with developing callus formation with good alignment. Good alignment distal fibular fracture. Other findings:None. IMPRESSION: Good alignment status post ORIF tib fib fracture as Dictated by: Ward Le MD 04/12/2020 14:38 Electronically signed by Ward Le MD in [facility] 04/12/2020 14:38
--- NOTE | 2020-04-12 13:03 | XR_ITS ---
PROCEDURE: XR ANKLE LT MIN 3V CLINICAL INDICATION: Ankle FX FU Follow-up fracture COMPARISON: XR ANKLE LT MIN 3V from 02/12/2020 XR ANKLE LT MIN 3V from 02/26/2020 XR ANKLE RT MIN 3V from 03/19/2020 XR ANKLE LT MIN 3V from 03/19/2020 FINDINGS: There is a healing distal fibular fracture with developing callus formation with good alignment. Nondisplaced fracture involves the tip of the medial malleolus not significantly changed. The ankle mortise does not appear widened. IMPRESSION: No change distal tib fib fracture Dictated by: Ward Le MD 04/12/2020 14:42 Electronically signed by Ward Le MD in [facility] 04/12/2020 14:42
== END ==
PROVIDERS: PCP Nurse Practitioner; Visit Provider Orthopaedic Surgery
DX: S82.842A Displaced bimalleolar fracture of left lower leg, initial encounter for closed fracture; S82.201A Unspecified fracture of shaft of right tibia, initial encounter for closed fracture
CPT/HCPCS: 73590; 73610

== ENCOUNTER 2020-04-12 14:44 | Outpatient (RCR) | payer MEDICARE, SELFPAY | END 2020-04-12 15:30 | disposition home or self-care (01) | LOC: PT 14:44 | PROVIDERS: Visit Provider Orthopaedic Surgery | DX: S82.842A Displaced bimalleolar fracture of left lower leg, initial encounter for closed fracture (principal); S82.101D Unspecified fracture of upper end of right tibia, subsequent encounter for closed fracture with routine healing | CPT/HCPCS: 97760 ==

== ENCOUNTER → 2020-04-16 13:39 | Outpatient (CLI) | payer MEDICARE, SELFPAY ==
--- NOTE | 2020-04-16 13:47 | XR_ITS ---
PROCEDURE: XR ANKLE RT MIN 3V CLINICAL INDICATION: ankle pain Follow-up fracture/surgery COMPARISON: CR XR ANKLE LT MIN 3V from 02/26/2020 CR XR ANKLE RT MIN 3V from 03/19/2020 CR XR ANKLE LT MIN 3V from 03/19/2020 CR XR TIBIA FIBULA RT 2V from 04/12/2020 FINDINGS: Intramedullary rajeev is present in the distal tibia with traversing cortical screws. There is normal alignment. There is an old fibular fracture. The ankle joint space is well preserved. There is a small calcific density at the tip of the medial malleolus which could represent an avulsion injury or an accessory center of ossification. Enthesophyte is noted at the Achilles insertion. There is generalized osteopenia of the bones of the ankle joint. IMPRESSION: Old distal fibular fracture with suspected old avulsion fracture of the medial malleolus with postsurgical change Dictated b Ward Le MD 04/16/2020 14:56 Ward Le MD in [facility] 04/16/2020 14:56
--- NOTE | 2020-04-16 13:47 | XR_ITS ---
PROCEDURE: XR ANKLE LT MIN 3V CLINICAL INDICATION: ANKLE PAIN COMPARISON: CR XR ANKLE LT MIN 3V from 02/26/2020 CR XR ANKLE RT MIN 3V from 03/19/2020 CR XR ANKLE LT MIN 3V from 03/19/2020 FINDINGS: There is some cortical thickening of the distal fibula with a faint lucency consistent with a healing distal fibular fracture.. There is a nondisplaced healing medial malleolar fracture is well. The ankle mortise is preserved. The talar dome has an unremarkable appearance. There is also some cortical thickening of the posterior distal tibia. IMPRESSION: Healing distal tib fib fractures with good alignment Dictated b Ward Le MD 04/16/2020 15:18 Ward Le MD in [facility] 04/16/2020 15:18
== END ==
PROVIDERS: PCP Family Medicine; Visit Provider Orthopaedic Surgery
DX: M25.572 Pain in left ankle and joints of left foot (principal); M25.571 Pain in right ankle and joints of right foot
CPT/HCPCS: 73610